=== PATIENT | male | born 1940 | race Caucasian/White ===

== ENCOUNTER → 2016-07-21 | Outpatient (RCR) | payer MEDICARE, BC ==
--- OUTSIDE RECORDS SUMMARY | 2016-04-22 10:48 | XMS REPORT | Continuity of Care Document ---
Author Author [facility] Organization [facility] Address Unknown Phone Unavailable Care Team Providers Care Button Sawyer Name Role Phone Edward Villar PCP [phone] Source Comments Some departments are not documenting in the electronic medical record. If you do not see the information that you expected, contact Release of Information in the Health Information Management department at [phone] for further assistance in locating additional records.[facility] Active Allergies and Adverse Reactions Allergen Noted Date Severity Reactions Comments Aspartame 11/05/2010 High NAUSEA AND VOMITING, I never want to SYNCOPE experience this again. Codeine 11/05/2010 Medium NAUSEA AND VOMITING, With the hallucinations HALLUCINATIONS it was weird! I have never experienced anything like that before. Other 01/12/2011 SEE COMMENTS Sweetner in diet products - convulsing, passes out Current Medications Prescription Sig. Disp. Refills Start End Date Status Date allopurinol (ZYLOPRIM) Take 100 mg by mouth Active 100 mg PO tablet daily. simvastatin (ZOCOR) 20 mg Take 20 mg by mouth at Active PO tablet bedtime daily. glipiZIDE (GLUCOTROL) 5 Take 5 mg by mouth every Active mg PO tablet morning. Fenofibric Acid Take 135 mg by mouth Active (TRILIPIX) 135 mg PO CpDR daily. cetirizine (ZYRTEC) 10 mg Take 10 mg by mouth daily Active PO tablet as needed. aspirin EC 81 mg tablet Take 1 Tab by mouth 90 Tab 3 09/02/19 Active daily. 12 metoprolol XL (TOPROL XL) Take 50 mg by mouth Active 50 mg tablet daily. INSULIN DETEMIR (LEVEMIR Inject 28 Units into Active SC) area(s) as directed at bedtime daily. bisacodyl (DULCOLAX) 5 mg Take 5 mg by mouth daily Active tablet as needed. INSULIN DETEMIR SC Inject 24 Units into Active area(s) as directed daily before breakfast. canagliflozin (INVOKANA) Take 100 mg by mouth Active 100 mg tablet daily with breakfast. amLODIPine (NORVASC) 5 mg TAKE ONE TABLET BY MOUTH 90 Tab 3 01/13/20 Active tablet EVERY DAY. NEED TO MAKE 14 FOLLOW UP APPOINTMENT ingenol mebutate (PICATO) Apply to affected area. Active 0.015 % gel Active Problems Problem Noted Date CLL (chronic lymphocytic leukemia) ([facility]) 05/30/2014 Overview: On Observation. Renal cell carcinoma ([facility]) 02/09/2011 Overview: --12/24/10: Left open radical nephrectomy. 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 Scan show widespread lymphadenopathy. Currently on observation alone. Observation, suspected cardiovascular disease 02/09/2011 Overview: 11/11/10: Carotid Duplex: Mild internal and common carotid plaquing bilaterally without hemodynamically significant stenosis Diabetes mellitus (HCC) 11/21/2010 CAD (coronary artery disease) 11/21/2010 Overview: 12/29/99 Echo ([place], [place]) - Small abnormality in the apex suspicious for mural thrombis. Mild mitral insufficiency. EF 45%. 01/03/00 Adenosine Cardiolite ([place], [place]) - Evidence of large apical infarction which involves the distal part of the inferior wall. EF 32%. 11/09/10: Lexicon stress thallium:Abnormal stress nuclear study. There is evidence of nearly equal mixed injury and ischemia of substantial extent involving the inferior septal apical segments and extending through the majority of the inferior wall. EF 49% 11/11/10: cardiac Cath: LM- Normal. LAD: 100 percent occluded in its mid segment. The mid and distal portions of the vessel fill via fpyb-sq-azfy collaterals. RAMUS: focal 95 percent stenosis proximally. LCX: Focal 70 percent stenosis in its proximal segment. RCA: 100 percent occluded proximally. The distal portions of the vessel fill via ltts-lb-yofvk collaterals primarily from the interventricular septal branches as well as the distal circumflex. 11/17/10: coronary artery bypass x 4 with PUGH to LAD, saphenous vein to PDA, saphenous vein sequential to ramus intermedius and OM under the direction of Dr. Pina. 12/22/10: Echo: EF 55%. No signficant valvular stenosis or regurgitation. CKD (chronic kidney disease) 11/21/2010 S/P CABG (coronary artery bypass graft) 11/21/2010 Ischemic cardiomyopathy 11/11/2010 CKD (chronic kidney disease) 11/11/2010 Type II diabetes mellitus (HCC) 11/05/2010 Hypertension 11/05/2010 Hyperlipidemia 11/05/2010 Gout 11/05/2010 Arthritis of knee 11/05/2010 History of [place] (myocardial infarction) 11/05/2010 Overview: 12/29/99 Echo ([place], [place]) - Small abnormality in the apex suspicious for mural thrombis. Mild mitral insufficiency. EF 45%. 01/03/00 Adenosine Cardiolite ([place], [place]) - Evidence of large apical infarction which involves the distal part of the inferior wall. EF 32%. Most Recent Encounters Date Type Specialty Providers Description 02/04/2016 Scan Only Urology Edel Armendariz MD Social History Tobacco Use Types Packs/Day Years Used Date Never Smoker Smokeless Tobacco: Never Used Alcohol Use Drinks/Week oz/Week Comments No quit 35 years ago Last Filed Vital Signs Vital Sign Reading Time Taken Blood Pressure 148/75 02/21/2015 1:32 PM CDT Pulse 74 02/21/2015 1:32 PM CDT Temperature 36.8 C (98.2 F) 02/21/2015 1:32 PM CDT Respiratory Rate - - Height 1.753 m (5' 9.02") 02/21/2015 1:32 PM CDT Weight 108.682 kg (239 lb 9.6 02/21/2015 1:32 PM CDT oz) Body Mass Index 35.37 02/21/2015 1:32 PM CDT Oxygen Saturation 96% 02/21/2015 1:32 PM CDT Plan of Care Health Maintenance Due Date Last Done Comments Physical (Comprehensive) 1947 Exam Pertussis Vaccine 1951 Tetanus Vaccine 1957 Dilated Eye Exam 1958 Foot Exam 1958 Colorectal Cancer 1990 Screening Shingles Vaccine 2000 Prevnar/Pneumovax (#1) 2005 Hba1c 02/20/2012 08/22/2011, 11/11/2010, 06/18/2010 Microalbumin 09/27/2012 09/28/2011, 05/25/2011 Influenza Vaccine 03/11/2016 Results from Last 3 Months Not on file
[2016-04-22 11:13] LABS: MEAN CORPUSCULAR HEMOGLOBIN 30 PG (25-34); MEAN CORPUSCULAR HGB CONC 34 G/DL (32-36); MEAN CORPUSCULAR VOLUME 90 FL (80-99); MEAN PLATELET VOLUME 11.2 FL (7.4-10.4); PLATELET COUNT 92 10^3/uL (130-400); RED BLOOD COUNT 4.47 10^6/uL (4.35-5.85); RED CELL DISTRIBUTION WIDTH 15.3 % (10.0-14.5)
[2016-04-22 11:25] LABS: WHITE BLOOD COUNT 36.7 10^3/uL (4.3-11.0)
[2016-04-22 11:42] LABS: BILIRUBIN,TOTAL 0.3 MG/DL (0.1-1.0); CALCIUM 8.6 MG/DL (8.5-10.1); CREATININE SERUM 1.98 MG/DL (0.60-1.30); MAGNESIUM 2.2 MG/DL (1.8-2.4); POTASSIUM 5.4 MMOL/L (3.6-5.0); TOTAL PROTEIN 6.2 G/DL (6.4-8.2)
[~2016-07-21] MED LIST: ALLP100T PO; CETI10CA PO; DOCU-165 PO; FENO135C PO; GLIP5TAB26 PO; HYDR12.570 PO; IRB150T PO; LEVO250T7 PO; LIRA0.6P SQ; METF500T8 PO; METO200T6 PO; SMV20T PO
[2016-07-21 10:32] LABS: BASOPHILS # (AUTO) 0.1 10^3/uL (0.0-0.1); BASOPHILS % (AUTO) 0 % (0-10); EOSINOPHILS # (AUTO) 0.4 10^3/uL (0.0-0.3); EOSINOPHILS % (AUTO) 1 % (0-10); LYMPHOCYTES # (AUTO) 35.4 X 10^3 (1.0-4.0); LYMPHOCYTES % (AUTO) 88 % (12-44); MEAN CORPUSCULAR HEMOGLOBIN 30 PG (25-34); MEAN CORPUSCULAR HGB CONC 33 G/DL (32-36); MEAN CORPUSCULAR VOLUME 91 FL (80-99); MEAN PLATELET VOLUME 10.8 FL (7.4-10.4); MONOCYTES # (AUTO) 1.6 X 10^3 (0.0-1.0); MONOCYTES % (AUTO) 4 % (0-12); NEUTROPHILS # (AUTO) 2.9 X 10^3 (1.8-7.8); NEUTROPHILS % (AUTO) 7 % (42-75); PLATELET COUNT 102 10^3/uL (130-400); RED CELL DISTRIBUTION WIDTH 14.5 % (10.0-14.5); WHITE BLOOD COUNT 40.4 10^3/uL (4.3-11.0)
[2016-07-21 11:00] LABS: ALBUMIN 3.9 G/DL (3.2-4.5); BILIRUBIN,TOTAL 0.3 MG/DL (0.1-1.0); CREATININE SERUM 2.4 MG/DL (0.60-1.30); POTASSIUM 6.1 MMOL/L (3.6-5.0); TOTAL PROTEIN 6.4 G/DL (6.4-8.2)
== END | disposition home or self-care (01) ==
LOC: ONC 04-22 10:45
PROVIDERS: ATTEND Internal Medicine Hematology & Oncology
DX: C85.10 Unspecified B-cell lymphoma, unspecified site (principal); Z85.528 Personal history of other malignant neoplasm of kidney; N18.3 Chronic kidney disease, stage 3 (moderate); D69.6 Thrombocytopenia, unspecified; Z79.899 Other long term (current) drug therapy
CPT/HCPCS: 36415; 80053; 83615; 83735; 85025; 99213

== ENCOUNTER 2016-07-27 14:15 | Outpatient (RCR) | payer MEDICARE, BC ==
--- OUTSIDE RECORDS SUMMARY | 2016-07-27 14:18 | XMS REPORT | Continuity of Care Document ---
Author Author [facility] Organization [facility] Address Unknown Phone Unavailable Care Team Providers Care Internet Project Manager Name Role Phone Edward Villar PCP [phone] Source Comments Some departments are not documenting in the electronic medical record. If you do not see the information that you expected, contact Release of Information in the Health Information Management department at [phone] for further assistance in locating additional records.[facility] Active Allergies and Adverse Reactions Allergen Noted [...] Problem Noted Date CLL (chronic lymphocytic leukemia) ([facility]) 05/30/2014 Overview: On Observation. Renal cell carcinoma ([facility]) 02/09/2011 Overview: --12/24/10: Left open [...] (coronary artery disease) 11/21/2010 Overview: 12/29/99 Echo ([place], [place]) - Small abnormality in the apex suspicious for mural thrombis. Mild mitral insufficiency. EF 45%. 01/03/00 Adenosine Cardiolite ([place], [place]) - Evidence of large apical infarction [...] distal portions of the vessel fill via dwid-ne-kuou collaterals. RAMUS: focal 95 percent stenosis proximally. LCX: Focal 70 percent stenosis in its proximal segment. RCA: 100 percent occluded proximally. The distal portions of the vessel fill via nfbq-uy-gfovo collaterals primarily from the interventricular septal branches [...] 11/05/2010 Arthritis of knee 11/05/2010 History of [place] (myocardial infarction) 11/05/2010 Overview: 12/29/99 Echo ([place], [place]) - Small abnormality in the apex suspicious for mural thrombis. Mild mitral insufficiency. EF 45%. 01/03/00 Adenosine Cardiolite ([place], [place]) - Evidence of large apical infarction which involves the distal part of the inferior wall. EF 32%. Most Recent Encounters Date Type Specialty Providers Description 05/03/2016 Scan Only Urology Edel Armendariz MD Social [...] Dilated Eye Exam 1958 Foot Exam 1958 Shingles Vaccine 2000 Prevnar/Pneumovax (#1) 2005 Hba1c 02/20/2012 08/22/2011, 11/11/2010, 06/18/2010 Microalbumin 09/27/2012 09/28/2011, 05/25/2011 Influenza Vaccine 03/11/2016 Results from Last 3 Months Not on file
[2016-07-27 16:46] LABS: CALCIUM 8.9 MG/DL (8.5-10.1); CREATININE SERUM 2.07 MG/DL (0.60-1.30); POTASSIUM 5.2 MMOL/L (3.6-5.0)
== END 2016-10-25 | disposition home or self-care (01) ==
LOC: ONC 14:15
PROVIDERS: ATTEND Internal Medicine Hematology & Oncology
DX: C85.10 Unspecified B-cell lymphoma, unspecified site (principal); Z85.528 Personal history of other malignant neoplasm of kidney; N18.3 Chronic kidney disease, stage 3 (moderate); D69.6 Thrombocytopenia, unspecified; Z79.899 Other long term (current) drug therapy
CPT/HCPCS: 36415; 80048; 99213

== ENCOUNTER 2016-11-10 08:10 | Outpatient (RCR) | payer MEDICARE, BC ==
[2016-11-10 08:31] LABS: BASOPHILS # (AUTO) 0.1 10^3/uL (0.0-0.1); BASOPHILS % (AUTO) 0 % (0-10); EOSINOPHILS # (AUTO) 0.5 10^3/uL (0.0-0.3); EOSINOPHILS % (AUTO) 1 % (0-10); LYMPHOCYTES # (AUTO) 57.8 X 10^3 (1.0-4.0); LYMPHOCYTES % (AUTO) 88 % (12-44); MEAN CORPUSCULAR HEMOGLOBIN 29 PG (25-34); MEAN CORPUSCULAR HGB CONC 32 G/DL (32-36); MEAN CORPUSCULAR VOLUME 91 FL (80-99); MEAN PLATELET VOLUME 10.7 FL (7.4-10.4); MONOCYTES % (AUTO) 3 % (0-12); NEUTROPHILS # (AUTO) 5.2 X 10^3 (1.8-7.8); NEUTROPHILS % (AUTO) 8 % (42-75); PLATELET COUNT 120 10^3/uL (130-400); RED BLOOD COUNT 3.92 10^6/uL (4.35-5.85); RED CELL DISTRIBUTION WIDTH 14.7 % (10.0-14.5)
[2016-11-10 08:33] LABS: WHITE BLOOD COUNT 65.6 10^3/uL (4.3-11.0)
[2016-11-10 09:01] LABS: ALBUMIN 3.7 G/DL (3.2-4.5); BILIRUBIN,TOTAL 0.6 MG/DL (0.1-1.0); CALCIUM 8.7 MG/DL (8.5-10.1); CREATININE SERUM 2.14 MG/DL (0.60-1.30); POTASSIUM 5.1 MMOL/L (3.6-5.0)
== END 2017-02-08 | disposition home or self-care (01) ==
LOC: ONC 08:10
PROVIDERS: ATTEND Internal Medicine Hematology & Oncology
DX: C85.10 Unspecified B-cell lymphoma, unspecified site (principal); Z85.528 Personal history of other malignant neoplasm of kidney; Z85.828 Personal history of other malignant neoplasm of skin; R19.7 Diarrhea, unspecified; E11.22 Type 2 diabetes mellitus with diabetic chronic kidney disease; I12.9 Hypertensive chronic kidney disease with stage 1 through stage 4 chronic kidney disease, or unspecified chronic kidney disease; N18.3 Chronic kidney disease, stage 3 (moderate); D69.6 Thrombocytopenia, unspecified; I25.10 Atherosclerotic heart disease of native coronary artery without angina pectoris; D80.1 Nonfamilial hypogammaglobulinemia; E78.00 Pure hypercholesterolemia, unspecified; M10.9 Gout, unspecified; Z95.1 Presence of aortocoronary bypass graft; Z79.4 Long term (current) use of insulin; Z79.899 Other long term (current) drug therapy
CPT/HCPCS: 80053; 83615; 85025; 87324; 87449; 99213

== ENCOUNTER → 2016-11-10 | Outpatient (CLI) | payer MEDICARE, BC | LOC: LAB 08:14 | PROVIDERS: ATTEND Family Medicine | DX: E11.9 Type 2 diabetes mellitus without complications (principal); Z79.4 Long term (current) use of insulin | CPT/HCPCS: 36415; 83036 ==

== ENCOUNTER → 2016-11-16 | Outpatient (CLI) | payer MEDICARE, BC ==
--- NOTE | 2016-11-16 10:13 | Diagnostic Imaging Report ---
CT NECK/CHEST/ABD/PELVIS WO Technique: Unenhanced CT imaging of the neck, chest, abdomen and pelvis was performed. Coronal reformats were created and submitted for interpretation. Indication: Chronic lymphocytic leukemia (CLL). Comparison: CT neck, chest, abdomen, and pelvis of 10/16/2015. CT NECK FINDINGS: Numerous bilateral cervical lymph nodes involving all the cervical stations (Level 1, 2, 3, 4 and 5) persist and are stable to slightly decreased in size. Intraparotid lymph nodes also persist but a few have decreased in size. A few examples of lymph nodes that have decreased in size include a left-sided level IB submandibular lymph node measuring 1.0 x 1.4 cm (previously 1.4 x 2.1 cm), right-sided level VA lymph node conglomeration now measuring 2.1 x 1.4 cm (previously 2.9 x 1.7 cm) and a right level IIB lymph node now measuring 0.7 x 0.7 cm (previously 1.2 x 1.1 cm), and a left level IIB lymph node measuring 1.1 x 0.8 cm (previously 1.4 x 2.5 cm). There are no enlarging cervical lymph nodes. Airway remains patent. No evidence of mucosal-based mass lesion in the nasopharynx, oropharynx or hypopharynx. The true vocal cords are symmetric. Salivary glands are symmetric with the exception of intraparotid lymph nodes. Thyroid is normal. No concerning focal osseous lesion in the cervical spine. Multilevel cervical spondylosis is similar. IMPRESSION: 1. Disease response in the neck characterized by improving but persistent extensive bilateral cervical lymphadenopathy. However, please see below for mixed response in the chest. CT CHEST FINDINGS: Left supraclavicular lymph node has slightly decreased in size now measuring 1.6 x 1.4 cm (previously 1.8 x 1.3 cm). Multiple bilateral enlarged axillary lymph nodes persist, but the largest have decreased in size. For example, the largest left axillary lymph node now measures 1.8 x 1.3 cm (previously 1.5 x 2.3 cm and the largest right axillary lymph node now measures 2.0 x 1.4 cm (previously 2.6 x 1.7 cm). Multiple enlarged intrathoracic lymph nodes are stable to slightly decreased in size. Examples include an upper right paratracheal lymph node now with maximal short axis dimension of 1.7 cm (previously 2.0 cm). Lower right pretracheal lymph node now has maximal short axis dimension of 1.7 cm (previously 2.1 cm). Extensive confluent lymphadenopathy around the right mainstem pulmonary bronchus is not significantly changed. Confluent subcarinal lymphadenopathy is unchanged with maximal dimensions of 5.3 x 2.4 cm (previously 5.3 x 2.4 cm when measured similarly). There are enlarged bilateral juxtaphrenic lymph nodes which are similar. No new or enlarging intrathoracic lymph nodes. Heart remains mildly enlarged with coronary artery calcifications and changes of CABG. No pericardial effusion. Normal caliber thoracic aorta with moderate atherosclerotic calcifications. There has been development of a small right pleural effusion. Multifocal bilateral pulmonary nodules have increased in size with a few examples as follows: Posterior right upper lobe 8mm nodule (previously 6 mm), left upper lobe 7 mm nodule (previously 5 mm), 11 mm right lower lobe pulmonary nodule (previously 7 mm and 11 mm left lower lobe pulmonary nodule (previously 9 mm). Numerous additional pulmonary nodules have increased in size. There are likely additional tiny new pulmonary nodules on both sides. No focal osseous lesion in the thorax. IMPRESSION: 1. Mixed response within the chest. Bilateral axillary and mediastinal lymph nodes have mildly decreased in size. However, multiple bilateral pulmonary nodules have increased in size. 2. Development of small right pleural effusion, which could be malignant or hydrostatic in nature from lymphatic obstruction. CT ABDOMEN AND PELVIS FINDINGS: No focal hepatic lesion. Unchanged marked splenomegaly with the spleen measuring up to 21 cm. Numerous enlarged upper abdominal and retroperitoneal lymph nodes are stable to decreased in size. For example the dominant abby hepatis lymph node measures 4.5 x 3.1 cm (previously 5.0 x 3.9 cm), left periaortic lymph node measures 3.4 x 3.0 cm (previously 3.4 x 3.5 cm) and a right retrocaval lymph node at the same level measures 2.5 x 1.8 cm (previously 2.6 x 1.6 cm). Enlarged left mesenteric root lymph nodes are stable with dominant node measuring 1.8 x 1.8 cm (previously 1.8 x 1.7 cm). There is increased hazy soft tissue attenuation within the mesenteric root, which likely relates to combination of posttreatment change as well as lymphadenopathy. The pancreas is grossly normal. Stable nodular thickening of the right adrenal gland. Status post left nephrectomy and possible removal of the left adrenal gland, which is not well visualized. No obstructive uropathy on the right. Atherosclerotic aorta. Urinary bladder is distended with mild circumferential wall thickening, which is nonspecific. No bowel obstruction. There is mild circumferential wall thickening of the rectosigmoid colon with mild surrounding inflammatory changes. Cholelithiasis is again noted. No abscess formation or evidence of bowel perforation. Mildly enlarged bilateral inguinal lymph nodes have not significantly changed. No concerning focal osseous lesion in the abdomen or pelvis. IMPRESSION: 1. Minimal disease response in the abdomen and pelvis with slight decrease in size but persistent bulky retroperitoneal and mesenteric root lymphadenopathy. 2. Mild circumferential wall thickening of the rectosigmoid colon with mild surrounding inflammatory changes. Findings could relate to colitis in the appropriate clinical setting. Correlation for symptomatology of colitis is advised. If the patient does not have clinical signs or symptoms of colitis, the apparent surrounding inflammatory changes may relate to post treatment changes in the mesenteric root resulting in soft tissue stranding. Dictated by: Dictated on workstation # [id number]
== END ==
LOC: RAD 08:25
PROVIDERS: ATTEND Internal Medicine Hematology & Oncology
DX: C91.10 Chronic lymphocytic leukemia of B-cell type not having achieved remission (principal)
CPT/HCPCS: 70490; 71250; 74176

== ENCOUNTER 2017-02-20 10:19 | Emergency (ER) | payer MEDICARE, BC ==
[~2017-02-20] VITALS: Ht 175.3 cm; Wt 113.9 kg
--- OUTSIDE RECORDS SUMMARY | 2017-02-20 10:25 | XMS REPORT | Clinical Summary ---
Author Author [facility] Organization [facility] Address Unknown Phone Unavailable Care Team Providers Care Crimp Setter Name Role Phone PCP Unavailable Source Comments Some departments are not documenting in the electronic medical record. If you do not see the information that you expected, contact Release of Information in the Health Information Management department at [phone] for further assistance in locating additional records.[facility] Allergies Active Allergy Reactions Severity Noted Date Comments Aspartame NAUSEA AND VOMITING, High 11/05/2010 I never want to SYNCOPE experience this again. Codeine NAUSEA AND VOMITING, Medium 11/05/2010 With the hallucinations HALLUCINATIONS it was weird! I have never experienced anything like that before. Unclassified Drug SEE COMMENTS 01/12/2011 Sweetner in diet products - convulsing, passes [...] Problem Noted Date CLL (chronic lymphocytic leukemia) ([facility]) 05/30/2014 Overview: On Observation. Renal cell carcinoma (HCC) 02/09/2011 Overview: --12/24/10: Left open radical nephrectomy. [...] (coronary artery disease) 11/21/2010 Overview: 12/29/99 Echo ([place], [place]) - Small abnormality in the apex suspicious for mural thrombis. Mild mitral insufficiency. EF 45%. 01/03/00 Adenosine Cardiolite ([place], [place]) - Evidence of large apical infarction [...] distal portions of the vessel fill via fdvf-ff-gzgz collaterals. RAMUS: focal 95 percent stenosis proximally. LCX: Focal 70 percent stenosis in its proximal segment. RCA: 100 percent occluded proximally. The distal portions of the vessel fill via uuyl-pi-ubqtc collaterals primarily from the interventricular septal branches [...] 11/05/2010 Arthritis of knee 11/05/2010 History of [place] (myocardial infarction) 11/05/2010 Overview: 12/29/99 Echo ([place], [place]) - Small abnormality in the apex suspicious for mural thrombis. Mild mitral insufficiency. EF 45%. 01/03/00 Adenosine Cardiolite ([place], [place]) - Evidence of large apical infarction which involves the distal part of the inferior wall. EF 32%. Family History Medical History Relation Name Comments Cancer Brother Cancer Brother Heart Attack Father Coronary Artery Disease Maternal Grandfather Diabetes Mother Hypertension Mother Stroke Mother Cancer Sister kidney Relation Name Status Comments Brother Brother Father [place] (Age 65) Maternal Grandfather Mother Sister Alive Social History Tobacco Use Types Packs/Day Years Used Date Never Smoker Smokeless Tobacco: Never Used Alcohol Use Drinks/Week oz/Week Comments No quit 35 years ago Sex Assigned at Date Recorded Not on file Last Filed Vital Signs Vital Sign Reading Time Taken Blood Pressure 148/75 02/21/2015 1:32 PM CDT Pulse 74 02/21/2015 1:32 PM CDT Temperature 36.8 C (98.2 F) 02/21/2015 1:32 PM CDT Respiratory Rate - - Oxygen Saturation 96% 02/21/2015 1:32 PM CDT Inhaled Oxygen - - Concentration Weight 108.7 kg (239 lb 9.6 oz) 02/21/2015 1:32 PM CDT Height 175.3 cm (5' 9.02") 02/21/2015 1:32 PM CDT Body Mass Index 35.37 02/21/2015 1:32 PM CDT Plan of Treatment Health Maintenance Due Date Last Done Comments PHYSICAL (COMPREHENSIVE) 1947 EXAM PERTUSSIS VACCINE 1951 TETANUS VACCINE 1957 DILATED EYE EXAM 1958 FOOT EXAM 1958 SHINGLES VACCINE 2000 PREVNAR/PNEUMOVAX (#1) 2005 HBA1C 02/20/2012 08/22/2011, 11/11/2010, 06/18/2010 MICROALBUMIN 09/27/2012 09/28/2011, 05/25/2011 INFLUENZA VACCINE 03/11/2017 Results Not on filefrom Last 3 Months
--- NOTE | 2017-02-20 11:43 | ED General ---
General Chief Complaint: Lower Extremity Stated Complaint: BILAT LEG/ABD WATER RETENTION Nursing Triage Note: PT HERE WITH C/O BILAT LEG SWELLING, ABDOMINAL SWELLING, AND SOB FOR 1 DAY. Nursing Sepsis Screen: No Definite Risk Source of Information: Patient Exam Limitations: No Limitations History of Present Illness Time Seen by Provider: 11:43 Initial Comments 76 male patient presents to the emergency department complains of bilateral lower extremity swelling, abdominal swelling, including increase shortness of air for 1 day. States he always has some swelling, but worse over the last 3-4 wks. Patient denies chest pain. Denies being on a diuretic. states patient's amlodipine was increased from 5 mg to 10 mg approximately one month ago when symptoms began to increase. Timing/Duration: Other (3-4 wks) Modifying Factors: worse with Other (denies improvement with elevation.) Allergies and Home Medications Allergies Coded Allergies: aspartame (Unverified Allergy, Severe, 10/23/10) Codeine (Unverified Allergy, Intermediate, HIGH ANXIETY, NAUSEA, 10/22/10) Home Medications Allopurinol 100 Mg Tab, 100 MG PO DAILY, (Reported) Docusate Sodium 100 Mg Capsule, 100 MG PO DAILY, #2 (Reported) 2 caps daily in am for constipation Fenofibric Acid (Choline) 135 Mg Capsule.dr, 135 MG PO DAILY, (Reported) Furosemide 40 Mg Tablet, 40 MG PO BID, #6 Ref 0 Prescribed by: WINSOME SWANSON on 02/20/17 1414 Glipizide 5 Mg Tab.er.24, 5 MG PO HS, (Reported) Hydrochlorothiazide 12.5 Mg Cap, 12.5 MG PO DAILY, (Reported) Irbesartan 150 Mg Tab, 150 MG PO DAILY, (Reported) Levofloxacin 250 Mg Tab, 1 EACH PO DAILY for 7 Days, (Reported) Liraglutide 0.6 Mg/0.1 Ml Pen.injctr, 1.8 MG SQ DAILY, (Reported) Metformin Hcl 500 Mg Tab.sr.24h, 1 EACH PO BID WITH MEALS, (Reported) Metoprolol Succinate 200 Mg Tab.sr.24h, 1 EACH PO DAILY, (Reported) Simvastatin 20 Mg Tab, 20 MG PO HS, (Reported) Constitutional: No chills, No diaphoresis, No dizziness, No fever, No malaise Respiratory: No cough, dyspnea on exertion, No hemoptysis, No orthopnea, No phlegm, short of breath Cardiovascular: see HPI, No chest pain, edema, No palpitations, No syncope Gastrointestinal: see HPI, No abdominal pain, No constipation, No diarrhea, No nausea, No vomiting Genitourinary: no symptoms reported Musculoskeletal: no symptoms reported Skin: no symptoms reported Psychiatric/Neurological: No Symptoms Reported All Other Systems Reviewed Negative Unless Noted: Yes (Negative excepted noted.) Past Icebgby-Lnofsa-Mtruvg Hx Patient Social History Recent Foreign Travel: No Contact w/Someone Who Travel: No Recent Infectious Disease Expo: No Recent Hopitalizations: Yes ([place], hosp here 11 yrs ago) Surgeries HX Surgeries: Yes Respiratory Hx Respiratory Disorders: No Cardiovascular Hx Cardiac Disorders: Yes Neurological Hx Neurological Disorders: No Reproductive System Hx Reproductive Disorders: No Genitourinary Hx Genitourinary Disorders: Yes Genitourinary Disorders: Renal Failure Gastrointestinal Hx Gastrointestinal Disorders: Yes (pt recent left kidney mass dx) Musculoskeletal Hx Musculoskeletal Disorders: No Endocrine Hx Endocrine Disorders: Yes HEENT HX ENT Disorders: No Psychosocial Hx Psychiatric Problems: No Blood Transfusions Hx Blood Disorders: No Reviewed Nursing Assessment Reviewed/Agree w Nursing PMH: Yes Family Medical History Significant Family History: No Pertinent Family Hx Physical Exam Vital Signs Vital Sign - Last 12Hours 02/20/17 02/20/17 10:52 14:27 Temp 97.6 Pulse 77 Resp 18 B/P (MAP) 126/76 Pulse Ox 98 O2 Delivery Room Air Capillary Refill : Less Than 3 Seconds General Appearance: No Apparent Distress, WD/WN, Chronically ill HEENT: PERRL/EOMI, Pharynx Normal Neck: Normal Inspection, Supple Respiratory: No Accessory Muscle Use, No Respiratory Distress, Decreased Breath Sounds (decreased breath sounds bilateral bases), No Pleural Rub, No Rales, No Rhonci, No Wheezing Cardiovascular: Regular Rate, Rhythm, No Murmur Gastrointestinal: Normal Bowel Sounds, Non Tender, Distended, No Guarding Back: Normal Inspection Extremity: Normal Capillary Refill, No Calf Tenderness, Pedal Edema (4+ edema bilaterally) Neurologic/Psychiatric: Alert, Oriented x3, Normal Mood/Affect Skin: Normal Color, Warm/Dry Progress/Results/Core Measures Results/Orders Lab Results My Orders Orders - WINSOME SWANSON [employer] (02/20/17 ) Medications Given in ED Vital Signs/I&O Blood Pressure Mean: 93 ECG Initial ECG Impression Date: Feb 20, 2017 Initial ECG Impression Time: 11:32 Initial ECG Rate: 71 Initial ECG Rhythm: Normal Sinus Initial ECG Comparisson: Unchanged Comment Sinus rhythm. ECG reviewed by Jorge Luis Pena MD. Diagnostic Imaging Diagonstic Imaging: Xray Plain Films/CT/US/NM/MRI: chest Comments Heart is enlarged. There's mild pulmonary vascular congestion. Bibasal atelectasis versus infiltrates are noted. There may be very small right effusion. There is no pneumothorax. Vague nodular densities are seen one in the right lung apex with a second seen overlying the left second anterior rib. IMPRESSION: 1. Bibasal atelectasis versus infiltrates with possible small right effusion. 2. Pulmonary vasculature congestion. 3. Nodular densities noted within both lungs. Correlation made to CT chest 11/16/2016 does demonstrate diffuse bilateral nodules not all of which are seen on this examination. Dictated by: Dictated on workstation # [id number] Reviewed: Reviewed by Me (radiology report reviewed by me) Departure Communication Progress Notes All laboratory and diagnostic findings discussed with patient. Patient has urinated 3-4 times since being given the Lasix. Patient reports already feeling better with Lasix. Plan for discharge to home with follow-up as an outpatient with Dr. Keys this week as previously scheduled as well Dr. Villar. Patient to call tomorrow morning for appointment time. Patient case discussed with Dr. Pena, he agrees with the plan of care. Impression Impression: Primary Impression: Adverse effects of medication Qualified Codes: T88.7XXA - Unspecified adverse effect of drug or medicament, initial encounter Additional Impressions: Edema, pitting Chronic kidney disease (CKD) Qualified Codes: N18.9 - Chronic kidney disease, unspecified History of leukemia Disposition: HOME, SELF-CARE Condition: Improved Departure-Patient Inst. Decision time for Depature: 14:13 Referrals: MILAN KEYS FLOYD R MD (PCP/Family) Primary Care Physician Patient Instructions: Chronic Kidney Disease (DC), Dependent Edema (DC) Add. Discharge Instructions: All discharge instructions reviewed with patient and/or family. Voiced understanding. Medications as instructed. Continue usual home medications with the exception of decrease amlodipine to 5 mg by mouth daily. Repeat labs on . Follow-up with Dr. Marroquin as previously scheduled for . Call Dr. Villar's office tomorrow morning for appointment time this week for recheck. Follow-up with Dr. Adair as previously scheduled. Return for worsened symptoms, shortness of air, swelling, chest pain, or any other concerns. Scripts Furosemide (Lasix) 40 Mg Tablet 40 MG PO BID, #6 TAB 0 Refills Prov: WINSOME SWANSON 02/20/17 WINSOME SWANSON Feb 20, 2017 11:43
[2017-02-20 11:58] LABS: BASOPHILS # (AUTO) 0.1 10^3/uL (0.0-0.1); BASOPHILS % (AUTO) 0 % (0-10); EOSINOPHILS # (AUTO) 0.4 10^3/uL (0.0-0.3); EOSINOPHILS % (AUTO) 1 % (0-10); LYMPHOCYTES # (AUTO) 41.4 X 10^3 (1.0-4.0); LYMPHOCYTES % (AUTO) 87 % (12-44); MEAN CORPUSCULAR HEMOGLOBIN 29 PG (25-34); MEAN CORPUSCULAR HGB CONC 32 G/DL (32-36); MEAN CORPUSCULAR VOLUME 91 FL (80-99); MONOCYTES # (AUTO) 1.9 X 10^3 (0.0-1.0); MONOCYTES % (AUTO) 4 % (0-12); NEUTROPHILS # (AUTO) 3.5 X 10^3 (1.8-7.8); NEUTROPHILS % (AUTO) 8 % (42-75); PLATELET COUNT 84 10^3/uL (130-400); RED BLOOD COUNT 3.99 10^6/uL (4.35-5.85); RED CELL DISTRIBUTION WIDTH 15.5 % (10.0-14.5)
[2017-02-20 12:00] LABS: WHITE BLOOD COUNT 47.4 10^3/uL (4.3-11.0)
--- NOTE | 2017-02-20 12:10 | Diagnostic Imaging Report ---
INDICATION: Complaining of bilateral leg swelling. Abdominal pain, shortness of breath. EXAMINATION: Chest 02/20/2017 COMPARISON: 10/31/2010 FINDINGS: Heart is enlarged. There's mild pulmonary vascular congestion. Bibasal atelectasis versus infiltrates are noted. There may be very small right effusion. There is no pneumothorax. Vague nodular densities are seen one in the right lung apex with a second seen overlying the left second anterior rib. IMPRESSION: 1. Bibasal atelectasis versus infiltrates with possible small right effusion. 2. Pulmonary vasculature congestion. 3. Nodular densities noted within both lungs. Correlation made to CT chest 11/16/2016 does demonstrate diffuse bilateral nodules not all of which are seen on this examination. Dictated by: Dictated on workstation # [id number]
[2017-02-20] MEDS ORDERED: DEXTROSE 50% 50 ML (IMS) SYR IV ONE (12:15)
[2017-02-20 12:19] LABS: ALBUMIN 3.8 GM/DL (3.2-4.5); BILIRUBIN,TOTAL 0.6 MG/DL (0.1-1.0); CALCIUM 8.8 MG/DL (8.5-10.1); CREATININE SERUM 1.7 MG/DL (0.60-1.30); POTASSIUM 4.8 MMOL/L (3.6-5.0); TOTAL PROTEIN 6.4 GM/DL (6.4-8.2)
[2017-02-20] MEDS ORDERED: FUROSEMIDE 40 MG/4 ML INJ (LASIX) IVP ONE (12:45)
[2017-02-20] MEDS ORDERED: FURO-124 PO (14:14)
[2017-02-20 14:27] VITALS: BP 147/70
== END 2017-02-20 14:27 | disposition home or self-care (01) ==
LOC: EDUNIT# 10:19 → ER 10:21
DX: T50.905A Adverse effect of unspecified drugs, medicaments and biological substances, initial encounter (principal); I25.2 Old myocardial infarction; R60.0 Localized edema; N18.9 Chronic kidney disease, unspecified; Z79.84 Long term (current) use of oral hypoglycemic drugs; Z85.6 Personal history of leukemia
CPT/HCPCS: 36415; 71010; 80053; 82962; 83880; 85025; 85027; 85379; 93005; 96374; 96375

== ENCOUNTER 2017-02-24 09:33 | Outpatient (RCR) | payer MEDICARE, BC ==
[~2017-02-24 09:33] MED LIST changes: +FURO-124 PO
[2017-02-24 09:46] LABS: BASOPHILS # (AUTO) 0.1 10^3/uL (0.0-0.1); BASOPHILS % (AUTO) 0 % (0-10); EOSINOPHILS # (AUTO) 0.3 10^3/uL (0.0-0.3); EOSINOPHILS % (AUTO) 1 % (0-10); LYMPHOCYTES # (AUTO) 31.5 X 10^3 (1.0-4.0); LYMPHOCYTES % (AUTO) 86 % (12-44); MEAN CORPUSCULAR HEMOGLOBIN 29 PG (25-34); MEAN CORPUSCULAR HGB CONC 32 G/DL (32-36); MEAN CORPUSCULAR VOLUME 92 FL (80-99); MEAN PLATELET VOLUME 10.8 FL (7.4-10.4); MONOCYTES # (AUTO) 1.7 X 10^3 (0.0-1.0); MONOCYTES % (AUTO) 5 % (0-12); NEUTROPHILS # (AUTO) 2.9 X 10^3 (1.8-7.8); NEUTROPHILS % (AUTO) 8 % (42-75); PLATELET COUNT 92 10^3/uL (130-400); RED BLOOD COUNT 3.73 10^6/uL (4.35-5.85); RED CELL DISTRIBUTION WIDTH 15.9 % (10.0-14.5)
[2017-02-24 09:48] LABS: WHITE BLOOD COUNT 36.5 10^3/uL (4.3-11.0)
[2017-02-24 10:15] LABS: ALBUMIN 3.6 GM/DL (3.2-4.5); BILIRUBIN,TOTAL 0.6 MG/DL (0.1-1.0); CALCIUM 8.6 MG/DL (8.5-10.1); CREATININE SERUM 2.02 MG/DL (0.60-1.30); POTASSIUM 5.7 MMOL/L (3.6-5.0); TOTAL PROTEIN 5.9 GM/DL (6.4-8.2)
== END 2017-04-09 | disposition home or self-care (01) ==
LOC: ONC 09:33
PROVIDERS: ATTEND Internal Medicine Hematology & Oncology
DX: C85.10 Unspecified B-cell lymphoma, unspecified site (principal); Z85.528 Personal history of other malignant neoplasm of kidney; N18.3 Chronic kidney disease, stage 3 (moderate); D69.6 Thrombocytopenia, unspecified; Z79.899 Other long term (current) drug therapy
CPT/HCPCS: 36415; 80053; 83615; 85025; 99213

== ENCOUNTER 2017-07-12 10:37 | Outpatient (RCR) | payer MEDICARE, BC ==
[2017-06-10 09:32] LABS: BASOPHILS # (AUTO) 0.1 10^3/uL (0.0-0.1); BASOPHILS % (AUTO) 0 % (0-10); EOSINOPHILS # (AUTO) 0.2 10^3/uL (0.0-0.3); EOSINOPHILS % (AUTO) 0 % (0-10); HEMATOCRIT 38 % (40-54); HEMOGLOBIN 12.5 G/DL (13.3-17.7); LYMPHOCYTES # (AUTO) 65.6 X 10^3 (1.0-4.0); LYMPHOCYTES % (AUTO) 92 % (12-44); MEAN CORPUSCULAR HEMOGLOBIN 28 PG (25-34); MEAN CORPUSCULAR HGB CONC 33 G/DL (32-36); MEAN CORPUSCULAR VOLUME 85 FL (80-99); MEAN PLATELET VOLUME 10.4 FL (7.4-10.4); MONOCYTES # (AUTO) 1.3 X 10^3 (0.0-1.0); MONOCYTES % (AUTO) 2 % (0-12); NEUTROPHILS # (AUTO) 4.1 X 10^3 (1.8-7.8); NEUTROPHILS % (AUTO) 6 % (42-75); PLATELET COUNT 81 10^3/uL (130-400); RED BLOOD COUNT 4.47 10^6/uL (4.35-5.85); RED CELL DISTRIBUTION WIDTH 14.9 % (10.0-14.5)
[2017-06-10 09:35] LABS: WHITE BLOOD COUNT 71.3 10^3/uL (4.3-11.0)
[2017-06-10 09:54] LABS: ALBUMIN 3.3 GM/DL (3.2-4.5); BILIRUBIN,TOTAL 0.4 MG/DL (0.1-1.0); CALCIUM 8.5 MG/DL (8.5-10.1); CREATININE SERUM 1.64 MG/DL (0.60-1.30); POTASSIUM 5.4 MMOL/L (3.6-5.0)
[2017-07-12 10:55] LABS: HEMATOCRIT 40 % (40-54); HEMOGLOBIN 12.9 G/DL (13.3-17.7); MEAN CORPUSCULAR HEMOGLOBIN 28 PG (25-34); MEAN CORPUSCULAR HGB CONC 33 G/DL (32-36); MEAN CORPUSCULAR VOLUME 85 FL (80-99); MEAN PLATELET VOLUME 11.8 FL (7.4-10.4); PLATELET COUNT 101 10^3/uL (130-400); RED BLOOD COUNT 4.67 10^6/uL (4.35-5.85); RED CELL DISTRIBUTION WIDTH 15.6 % (10.0-14.5)
[2017-07-12 11:07] LABS: WHITE BLOOD COUNT 30.8 10^3/uL (4.3-11.0)
[2017-07-12 11:13] LABS: ALBUMIN 3.6 GM/DL (3.2-4.5); BILIRUBIN,TOTAL 0.6 MG/DL (0.1-1.0); CALCIUM 8.8 MG/DL (8.5-10.1); CREATININE SERUM 1.88 MG/DL (0.60-1.30); POTASSIUM 5.5 MMOL/L (3.6-5.0); TOTAL PROTEIN 6.1 GM/DL (6.4-8.2)
== END 2017-08-30 08:57 | disposition home or self-care (01) ==
LOC: ONC 10:37
PROVIDERS: ATTEND Internal Medicine Hematology & Oncology
DX: C85.10 Unspecified B-cell lymphoma, unspecified site (principal); Z85.528 Personal history of other malignant neoplasm of kidney; N18.3 Chronic kidney disease, stage 3 (moderate); D69.6 Thrombocytopenia, unspecified; Z79.899 Other long term (current) drug therapy
CPT/HCPCS: 36415; 80053; 83615; 85025; 99213

== ENCOUNTER → 2017-08-22 | Outpatient (CLI) | payer MEDICARE, BC ==
--- NOTE | 2017-08-22 12:03 | Diagnostic Imaging Report ---
CLINICAL INDICATION: Frontal sinus pain and persistent cough. EXAM: Chest x-ray, PA and lateral views. COMPARISON: Portable chest x-ray dated 02/20/2017. FINDINGS: There are slight patchy areas of airspace infiltrate seen bilaterally, which is worse in both lung bases. Likely nipple shadow in the periphery of the right lung base. Stable postop changes in the chest with sternotomy wires and mediastinal clips. Pulmonary vasculature and cardiac silhouette are within normal limits. There are hypertrophic spurs involving the thoracic spine. IMPRESSION: 1: There is concern for mild bilateral lung infiltrates/infectious or inflammatory process. Followup chest x-ray in 2-4 weeks is suggested to evaluate for interval resolution of this finding. 2: Suspected nipple shadow overlying the periphery of the right lung base. Followup chest x-ray exam should include nipple markers to further evaluate this area. Dictated by: Dictated on workstation # [id number]
--- NOTE | 2017-08-22 12:38 | Diagnostic Imaging Report ---
CLINICAL INDICATION: Patient congestion and cough for past month. EXAM: X-ray of the skull, AP, Smith, and lateral views. COMPARISON: None. FINDINGS AND IMPRESSION: 1: There is concern for possible mucosal thickening in both maxillary sinuses. The remainder of the paranasal sinuses are unremarkable as visualized. 2: There is rightward nasal septal deviation. Otherwise, there is no craniofacial bony abnormality. 3: Visualized upper cervical spine degenerative disease with hypertrophic spurs. Dictated by: Dictated on workstation # [id number]
== END ==
LOC: RAD 10:54
PROVIDERS: ATTEND Family Medicine
DX: J34.2 Deviated nasal septum (principal); R05 Cough; M50.30 Other cervical disc degeneration, unspecified cervical region; M46.02 Spinal enthesopathy, cervical region
CPT/HCPCS: 70220; 71046

== ENCOUNTER → 2017-09-05 | Outpatient (CLI) | payer MEDICARE, BC ==
--- NOTE | 2017-09-05 11:04 | Diagnostic Imaging Report ---
INDICATION: COUGH USE NIPPLE MARKERS COMPARISON: 08/22/2017 FINDINGS: Frontal and lateral views of the chest demonstrate normal heart size and pulmonary vascularity. External nipple markers were placed. A few small micronodules are noted within the upper lung aly. Largest measures approximately 9 mm on the left. There is no large effusion or pneumothorax. No focal alveolar consolidation is identified. Sternotomy wires and calcified aortic atherosclerosis noted. The visualized osseous structures show no acute abnormalities. IMPRESSION: 1. Multiple small micronodules within the bilateral upper lung aly. Note is made of multiple pulmonary nodules on previous CT chest dated 11/16/2016. May want to consider repeat CT chest to evaluate for progression versus stability. 2. No evidence of failure or focal infiltrate. Dictated by: Dictated on workstation # [id number]
== END ==
LOC: RAD 08:35
PROVIDERS: ATTEND Family Medicine
DX: R91.8 Other nonspecific abnormal finding of lung field (principal); R05 Cough
CPT/HCPCS: 71046

== ENCOUNTER 2017-11-21 09:47 | Outpatient (RCR) | payer MEDICARE, BC ==
[2017-08-30 09:21] LABS: BASOPHILS # (AUTO) 0.1 10^3/uL (0.0-0.1); BASOPHILS % (AUTO) 0 % (0-10); EOSINOPHILS # (AUTO) 0.3 10^3/uL (0.0-0.3); EOSINOPHILS % (AUTO) 1 % (0-10); HEMATOCRIT 35 % (40-54); HEMOGLOBIN 11.5 G/DL (13.3-17.7); LYMPHOCYTES # (AUTO) 29.4 X 10^3 (1.0-4.0); LYMPHOCYTES % (AUTO) 86 % (12-44); MEAN CORPUSCULAR HEMOGLOBIN 28 PG (25-34); MEAN CORPUSCULAR HGB CONC 33 G/DL (32-36); MEAN CORPUSCULAR VOLUME 85 FL (80-99); MONOCYTES # (AUTO) 1.3 X 10^3 (0.0-1.0); MONOCYTES % (AUTO) 4 % (0-12); NEUTROPHILS # (AUTO) 3.2 X 10^3 (1.8-7.8); NEUTROPHILS % (AUTO) 10 % (42-75); PLATELET COUNT 127 10^3/uL (130-400); RED BLOOD COUNT 4.11 10^6/uL (4.35-5.85); RED CELL DISTRIBUTION WIDTH 14.9 % (10.0-14.5)
[2017-08-30 09:22] LABS: WHITE BLOOD COUNT 34.4 10^3/uL (4.3-11.0)
[2017-08-30 09:44] LABS: ALBUMIN 3.4 GM/DL (3.2-4.5); BILIRUBIN,TOTAL 0.3 MG/DL (0.1-1.0); CALCIUM 8.6 MG/DL (8.5-10.1); POTASSIUM 5.3 MMOL/L (3.6-5.0); TOTAL PROTEIN 5.8 GM/DL (6.4-8.2)
[2017-11-21 09:57] LABS: BASOPHILS % (AUTO) 0 % (0-10); EOSINOPHILS # (AUTO) 0.2 10^3/uL (0.0-0.3); EOSINOPHILS % (AUTO) 1 % (0-10); HEMATOCRIT 35 % (40-54); HEMOGLOBIN 11.6 G/DL (13.3-17.7); LYMPHOCYTES # (AUTO) 16.2 X 10^3 (1.0-4.0); LYMPHOCYTES % (AUTO) 84 % (12-44); MEAN CORPUSCULAR HEMOGLOBIN 28 PG (25-34); MEAN CORPUSCULAR HGB CONC 33 G/DL (32-36); MEAN CORPUSCULAR VOLUME 84 FL (80-99); MEAN PLATELET VOLUME 10.9 FL (7.4-10.4); MONOCYTES # (AUTO) 1.2 X 10^3 (0.0-1.0); MONOCYTES % (AUTO) 6 % (0-12); NEUTROPHILS # (AUTO) 1.6 X 10^3 (1.8-7.8); NEUTROPHILS % (AUTO) 8 % (42-75); PLATELET COUNT 83 10^3/uL (130-400); RED BLOOD COUNT 4.19 10^6/uL (4.35-5.85); RED CELL DISTRIBUTION WIDTH 15.5 % (10.0-14.5); WHITE BLOOD COUNT 19.3 10^3/uL (4.3-11.0)
[2017-11-21 10:19] LABS: ALBUMIN 3.7 GM/DL (3.2-4.5); BILIRUBIN,TOTAL 0.4 MG/DL (0.1-1.0); CALCIUM 8.7 MG/DL (8.5-10.1); CREATININE SERUM 2.08 MG/DL (0.60-1.30); POTASSIUM 5.5 MMOL/L (3.6-5.0)
== END 2017-11-28 | disposition home or self-care (01) ==
LOC: ONC 09:47
PROVIDERS: ATTEND Internal Medicine Hematology & Oncology
DX: C85.10 Unspecified B-cell lymphoma, unspecified site (principal); Z85.528 Personal history of other malignant neoplasm of kidney; I12.9 Hypertensive chronic kidney disease with stage 1 through stage 4 chronic kidney disease, or unspecified chronic kidney disease; E11.22 Type 2 diabetes mellitus with diabetic chronic kidney disease; N18.3 Chronic kidney disease, stage 3 (moderate); D69.6 Thrombocytopenia, unspecified; I25.10 Atherosclerotic heart disease of native coronary artery without angina pectoris; D80.1 Nonfamilial hypogammaglobulinemia; E78.00 Pure hypercholesterolemia, unspecified; M10.9 Gout, unspecified; Z95.1 Presence of aortocoronary bypass graft; Z79.4 Long term (current) use of insulin; Z79.899 Other long term (current) drug therapy
CPT/HCPCS: 36415; 80053; 83615; 85025; 99213

== ENCOUNTER → 2017-11-21 | Outpatient (CLI) | payer MEDICARE, BC ==
--- NOTE | 2017-11-21 12:49 | Diagnostic Imaging Report ---
PROCEDURE: CT chest and abdomen without contrast. TECHNIQUE: Axial images were obtained from the thoracic inlet through the iliac crest without the administration of intravenous contrast. INDICATION: Chronic lymphocytic leukemia, followup. COMPARISON: Comparison is made with prior CT from 11/16/2016. CT CHEST: FINDINGS: A left supraclavicular lymph node measures 1.6 x 1.3 cm compared with 1.7 x 1.5 cm. Left axillary lymph node measures 2.0 x 1.3 cm compared with 1.8 x 1.3 cm. Right axillary lymph node measures 2.4 x 1.5 cm compared with 2.0 x 1.4 cm. Bulky mediastinal lymphadenopathy is again seen. A right upper paratracheal node short axis measurement has increased to 1.9 cm compared with 1.7 cm. More inferiorly, a paratracheal node demonstrates a short axis measurement of 2.1 cm compared with 1.7 cm. Subcarinal soft tissue measures 5.6 x 2.2 cm compared with 5.3 x 2.4 cm. Coronary arterial calcifications are again noted. There is no pericardial fluid. Small right pleural effusion persists. No left-sided effusion is seen. Innumerable bilateral pulmonary nodules appear to be stable allowing for slight differences in slice position. IMPRESSION: Stable bilateral pulmonary nodules. There has been some slight increase in size of bilateral axillary and mediastinal lymph nodes when compared with the examination from one year earlier. Moderate right-sided pleural effusion persists. CT ABDOMEN: FINDINGS: No discrete liver mass is detected. Multiple small stones within the gallbladder are noted. Hepatomegaly persists. The pancreas is unremarkable. Adrenal glands appear stable. Right kidney is unremarkable. Aorta and iliac vessels remain heavily calcified. A abby hepatis lymph node measures approximately 4.6 x 3.5 cm compared with 4.5 x 3.1 cm. Bulky central retroperitoneal lymphadenopathy is again noted. An aortocaval node appears increased at 3.3 x 2.3 cm compared with 2.5 x 1.8 cm. A left periaortic node measures 4.3 x 3.6 cm compared with 3.4 x 3.0 cm. Mesenteric nodes are again noted, slightly larger on the left measuring 2.0 x 1.5 cm compared with 1.7 x 1.8 cm. There is no ascites. The bowel loops are normal in caliber. IMPRESSION: 1. Slight increase in size of abdominal lymphadenopathy when compared to study one year earlier. No new abnormality is seen. Dictated by: Dictated on workstation # [id number]
== END ==
LOC: RAD 10:04
PROVIDERS: ATTEND Internal Medicine Hematology & Oncology
DX: C91.10 Chronic lymphocytic leukemia of B-cell type not having achieved remission (principal); R91.8 Other nonspecific abnormal finding of lung field; J90 Pleural effusion, not elsewhere classified
CPT/HCPCS: 71250; 74150

== ENCOUNTER 2018-02-28 14:38 | Outpatient (RCR) | payer MEDICARE, BC ==
[2018-02-28 15:04] LABS: BASOPHILS # (AUTO) 0.1 10^3/uL (0.0-0.1); BASOPHILS % (AUTO) 0 % (0-10); EOSINOPHILS # (AUTO) 0.6 10^3/uL (0.0-0.3); EOSINOPHILS % (AUTO) 1 % (0-10); HEMATOCRIT 35 % (40-54); HEMOGLOBIN 12.2 G/DL (13.3-17.7); LYMPHOCYTES # (AUTO) 54.7 X 10^3 (1.0-4.0); LYMPHOCYTES % (AUTO) 90 % (12-44); MEAN CORPUSCULAR HEMOGLOBIN 29 PG (25-34); MEAN CORPUSCULAR HGB CONC 35 G/DL (32-36); MEAN CORPUSCULAR VOLUME 83 FL (80-99); MEAN PLATELET VOLUME 11.5 FL (7.4-10.4); MONOCYTES # (AUTO) 1.8 X 10^3 (0.0-1.0); MONOCYTES % (AUTO) 3 % (0-12); NEUTROPHILS # (AUTO) 3.8 X 10^3 (1.8-7.8); NEUTROPHILS % (AUTO) 6 % (42-75); PLATELET COUNT 104 10^3/uL (130-400); RED BLOOD COUNT 4.21 10^6/uL (4.35-5.85); RED CELL DISTRIBUTION WIDTH 16.7 % (10.0-14.5)
[2018-02-28 15:21] LABS: BILIRUBIN,TOTAL 0.4 MG/DL (0.1-1.0); CALCIUM 8.8 MG/DL (8.5-10.1); CREATININE SERUM 1.89 MG/DL (0.60-1.30); TOTAL PROTEIN 6.6 GM/DL (6.4-8.2)
[2018-02-28 15:23] LABS: POTASSIUM 7.6 MMOL/L (3.6-5.0)
[2018-03-01] MEDS ORDERED: CHOL20003 PO (08:49)
[2018-03-01] MEDS ORDERED: LATA2.5D5 OU (08:49)
[2018-03-01] MEDS ORDERED: CETI10TA20 PO (08:49)
[2018-03-01] MEDS ORDERED: LISI10TA2 PO (08:49)
[2018-03-01] MEDS ORDERED: SIMV20TA3 PO (08:49)
[2018-03-01] MEDS ORDERED: FURO40TA4 PO (08:49)
[2018-03-01] MEDS ORDERED: DOCU-163 PO (08:49)
[2018-03-01] MEDS ORDERED: METO-370 PO (08:49)
[2018-03-01] MEDS ORDERED: INSU100I29 SC (08:49)
== END 2018-03-10 | disposition home or self-care (01) ==
LOC: ONC 14:38
PROVIDERS: ATTEND Internal Medicine Hematology & Oncology
DX: C85.10 Unspecified B-cell lymphoma, unspecified site (principal); C91.10 Chronic lymphocytic leukemia of B-cell type not having achieved remission; Z85.528 Personal history of other malignant neoplasm of kidney; E87.5 Hyperkalemia; D80.1 Nonfamilial hypogammaglobulinemia; I12.9 Hypertensive chronic kidney disease with stage 1 through stage 4 chronic kidney disease, or unspecified chronic kidney disease; E11.22 Type 2 diabetes mellitus with diabetic chronic kidney disease; N18.3 Chronic kidney disease, stage 3 (moderate); I25.10 Atherosclerotic heart disease of native coronary artery without angina pectoris; E78.00 Pure hypercholesterolemia, unspecified; M10.9 Gout, unspecified; Z95.1 Presence of aortocoronary bypass graft; Z79.4 Long term (current) use of insulin; Z79.899 Other long term (current) drug therapy
CPT/HCPCS: 36415; 80053; 83615; 84132; 85025; 99213

== ENCOUNTER 2018-05-30 12:49 | Outpatient (RCR) | payer MEDICARE, BC ==
[2018-04-12 09:42] LABS: BASOPHILS # (AUTO) 0.1 10^3/uL (0.0-0.1); BASOPHILS % (AUTO) 0 % (0-10); EOSINOPHILS # (AUTO) 0.4 10^3/uL (0.0-0.3); EOSINOPHILS % (AUTO) 1 % (0-10); HEMATOCRIT 33 % (40-54); HEMOGLOBIN 10.6 G/DL (13.3-17.7); LYMPHOCYTES # (AUTO) 25.2 X 10^3 (1.0-4.0); LYMPHOCYTES % (AUTO) 89 % (12-44); MEAN CORPUSCULAR HEMOGLOBIN 29 PG (25-34); MEAN CORPUSCULAR HGB CONC 33 G/DL (32-36); MEAN CORPUSCULAR VOLUME 89 FL (80-99); MEAN PLATELET VOLUME 10.2 FL (7.4-10.4); MONOCYTES % (AUTO) 3 % (0-12); NEUTROPHILS # (AUTO) 1.7 X 10^3 (1.8-7.8); NEUTROPHILS % (AUTO) 6 % (42-75); PLATELET COUNT 75 10^3/uL (130-400); RED BLOOD COUNT 3.66 10^6/uL (4.35-5.85); RED CELL DISTRIBUTION WIDTH 16.5 % (10.0-14.5); WHITE BLOOD COUNT 28.3 10^3/uL (4.3-11.0)
[2018-04-12 10:04] LABS: ALBUMIN 3.8 GM/DL (3.2-4.5); BILIRUBIN,TOTAL 0.5 MG/DL (0.1-1.0); CALCIUM 8.8 MG/DL (8.5-10.1); CREATININE SERUM 1.71 MG/DL (0.60-1.30); POTASSIUM 5.2 MMOL/L (3.6-5.0); TOTAL PROTEIN 6.1 GM/DL (6.4-8.2)
[~2018-05-30 12:49] MED LIST changes: +CETI10TA20 PO; +CHOL20003 PO; +DOCU-163 PO; +FURO40TA4 PO; +INSU100I29 SC; +LATA2.5D5 OU; +LISI10TA2 PO; +METO-370 PO; +SIMV20TA3 PO
[2018-05-30 12:59] LABS: BASOPHILS # (AUTO) 0.1 10^3/uL (0.0-0.1); BASOPHILS % (AUTO) 0 % (0-10); EOSINOPHILS # (AUTO) 0.6 10^3/uL (0.0-0.3); EOSINOPHILS % (AUTO) 1 % (0-10); HEMATOCRIT 36 % (40-54); HEMOGLOBIN 11.7 G/DL (13.3-17.7); LYMPHOCYTES # (AUTO) 41.1 X 10^3 (1.0-4.0); LYMPHOCYTES % (AUTO) 91 % (12-44); MEAN CORPUSCULAR HEMOGLOBIN 29 PG (25-34); MEAN CORPUSCULAR HGB CONC 33 G/DL (32-36); MEAN CORPUSCULAR VOLUME 88 FL (80-99); MEAN PLATELET VOLUME 12.1 FL (7.4-10.4); MONOCYTES # (AUTO) 1.2 X 10^3 (0.0-1.0); MONOCYTES % (AUTO) 3 % (0-12); NEUTROPHILS # (AUTO) 2.2 X 10^3 (1.8-7.8); NEUTROPHILS % (AUTO) 5 % (42-75); PLATELET COUNT 79 10^3/uL (130-400); RED BLOOD COUNT 4.09 10^6/uL (4.35-5.85); RED CELL DISTRIBUTION WIDTH 14.9 % (10.0-14.5)
[2018-05-30 13:00] LABS: WHITE BLOOD COUNT 45.1 10^3/uL (4.3-11.0)
[2018-05-30 13:21] LABS: CREATININE SERUM 1.77 MG/DL (0.60-1.30); POTASSIUM 5.8 MMOL/L (3.6-5.0)
[2018-05-30 13:22] LABS: ALBUMIN 4.1 GM/DL (3.2-4.5); BILIRUBIN,TOTAL 0.5 MG/DL (0.1-1.0); CALCIUM 9.1 MG/DL (8.5-10.1); TOTAL PROTEIN 6.4 GM/DL (6.4-8.2)
== END 2018-07-11 | disposition home or self-care (01) ==
LOC: ONC 12:49
PROVIDERS: ATTEND Internal Medicine Hematology & Oncology
DX: C85.10 Unspecified B-cell lymphoma, unspecified site (principal); C91.10 Chronic lymphocytic leukemia of B-cell type not having achieved remission; Z85.528 Personal history of other malignant neoplasm of kidney; E87.5 Hyperkalemia; D80.1 Nonfamilial hypogammaglobulinemia; I12.9 Hypertensive chronic kidney disease with stage 1 through stage 4 chronic kidney disease, or unspecified chronic kidney disease; E11.22 Type 2 diabetes mellitus with diabetic chronic kidney disease; N18.3 Chronic kidney disease, stage 3 (moderate); I25.10 Atherosclerotic heart disease of native coronary artery without angina pectoris; E78.00 Pure hypercholesterolemia, unspecified; M10.9 Gout, unspecified; Z95.1 Presence of aortocoronary bypass graft; Z79.4 Long term (current) use of insulin; Z79.899 Other long term (current) drug therapy
CPT/HCPCS: 36415; 80053; 83615; 85025

== ENCOUNTER 2018-08-30 08:33 | Outpatient (RCR) | payer MEDICARE, BC ==
[2018-08-30 08:50] LABS: BASOPHILS # (AUTO) 0.1 10^3/uL (0.0-0.1); BASOPHILS % (AUTO) 0 % (0-10); EOSINOPHILS # (AUTO) 0.4 10^3/uL (0.0-0.3); EOSINOPHILS % (AUTO) 1 % (0-10); HEMATOCRIT 34 % (40-54); HEMOGLOBIN 10.7 G/DL (13.3-17.7); LYMPHOCYTES # (AUTO) 45.3 X 10^3 (1.0-4.0); LYMPHOCYTES % (AUTO) 90 % (12-44); MEAN CORPUSCULAR HEMOGLOBIN 27 PG (25-34); MEAN CORPUSCULAR HGB CONC 32 G/DL (32-36); MEAN CORPUSCULAR VOLUME 86 FL (80-99); MEAN PLATELET VOLUME 10.6 FL (7.4-10.4); MONOCYTES # (AUTO) 1.4 X 10^3 (0.0-1.0); MONOCYTES % (AUTO) 3 % (0-12); NEUTROPHILS # (AUTO) 3.1 X 10^3 (1.8-7.8); NEUTROPHILS % (AUTO) 6 % (42-75); PLATELET COUNT 129 10^3/uL (130-400); RED CELL DISTRIBUTION WIDTH 16.1 % (10.0-14.5)
[2018-08-30 08:51] LABS: WHITE BLOOD COUNT 50.3 10^3/uL (4.3-11.0)
[2018-08-30 09:06] LABS: ALBUMIN 3.7 GM/DL (3.2-4.5); BILIRUBIN,TOTAL 0.4 MG/DL (0.1-1.0); CALCIUM 8.6 MG/DL (8.5-10.1); CREATININE SERUM 2.09 MG/DL (0.60-1.30); POTASSIUM 5.3 MMOL/L (3.6-5.0); TOTAL PROTEIN 5.8 GM/DL (6.4-8.2)
[2018-10-11] MEDS ORDERED: OXYC-471 PO (12:48)
== END 2018-11-28 | disposition home or self-care (01) ==
LOC: ONC 08:33
PROVIDERS: ATTEND Internal Medicine Hematology & Oncology
DX: C91.10 Chronic lymphocytic leukemia of B-cell type not having achieved remission (principal); Z85.528 Personal history of other malignant neoplasm of kidney; E87.5 Hyperkalemia; D80.1 Nonfamilial hypogammaglobulinemia; I12.9 Hypertensive chronic kidney disease with stage 1 through stage 4 chronic kidney disease, or unspecified chronic kidney disease; E11.22 Type 2 diabetes mellitus with diabetic chronic kidney disease; N18.3 Chronic kidney disease, stage 3 (moderate); I25.10 Atherosclerotic heart disease of native coronary artery without angina pectoris; E78.00 Pure hypercholesterolemia, unspecified; M10.9 Gout, unspecified; Z95.1 Presence of aortocoronary bypass graft; Z79.4 Long term (current) use of insulin; Z79.899 Other long term (current) drug therapy
CPT/HCPCS: 36415; 80053; 82784; 83615; 85025; 99213

== ENCOUNTER → 2018-09-29 | Outpatient (CLI) | payer MEDICARE, BC ==
--- NOTE | 2018-09-29 10:53 | Diagnostic Imaging Report ---
INDICATION: CLL. TECHNIQUE: Axial imaging through the neck, chest, abdomen and pelvis was performed without contrast. COMPARISON: Comparison is made with prior CT neck study from 11/16/[address] chest and abdomen study from 11/21/2017. CT NECK: Visualized intracranial structures are unremarkable. Nasopharynx and oropharynx are unremarkable. Parapharyngeal fat planes are preserved. Epiglottis is unremarkable. The vocal cords appear to be symmetric. No thyroid mass is seen. Intraparotid lymph nodes are again seen and appear to be slightly smaller on today's exam. Again noted are numerous lymph nodes throughout the neck at all five stations, similar to prior exam. Marker node in the left parotid previously is similar in size at 1.6 x 0.8 cm compared with 1.7 x 0.7 cm. However, additional intraparotid nodes all appear to be slightly smaller in size. Marker in the left submandibular node measures 1.5 x 1.1 cm compared with 1.4 x 1.0 cm. Conglomerate of nodes in the right posterior neck measures 2.2 x 1.0 cm compared with 2.1 x 1.4 cm. Majority of nodes all appear to be very similar in size. No fluid collections are seen. IMPRESSION: Overall similar appearance to diffuse cervical lymphadenopathy when compared with prior study from 11/16/2016. No new abnormality is detected. CT CHEST: Previously noted left supraclavicular node is slightly larger at 1.8 x 1.4 cm compared with 1.6 x 1.3 cm on prior. Left axillary node measures 1.7 x 1.4 cm compared with 1.3 x 2.0 cm on prior. A right axillary node is 2.3 x 1.5 cm compared with 2.4 x 1.5 cm on prior. Bulky mediastinal lymphadenopathy is again noted. Right paratracheal node demonstrates short axis measurement of 1.9 cm, stable. Pretracheal node measures 2.2 cm compared with 2.1 cm. Continued marked subcarinal soft tissue fullness is identified, difficult to measure due to absence of intravenous contrast but visually appears to be slightly increased when compared with prior exam. Several lymph nodes in the AP window also appear to be slightly greater. Deonna are difficult to evaluate. No pericardial fluid is seen. The pleural fluid on the right has increased in size, now layering to a thickness of 6 cm compared with 2 cm. Innumerable pulmonary nodules are again noted throughout both lungs, measuring similar to prior study from 11/21/2017. There is some parenchymal consolidation in the right lower lobe consistent with some atelectasis or pneumonia. IMPRESSION: There has been some increase in the bulky mediastinal lymphadenopathy when compared with prior study from 11/21/2017. There is also increase in size of a right-sided pleural effusion which is now moderate. Bilateral innumerable pulmonary nodules are stable. CT ABDOMEN AND PELVIS: Hepatosplenomegaly persists. Small stones in the gallbladder are again seen. Pancreas is unremarkable. No adrenal mass is seen. The right kidney contains an exophytic cortical lesion in the upper pole which appears to be increased on today's study at approximately 15 mm compared with 9 mm. This is indeterminate but density measurements are not consistent with a simple cyst. Aorta is calcified. Marked bulky central retroperitoneal lymphadenopathy is again noted. Milagro hepatis lymphadenopathy may be slightly improved measuring 2.6 x 4.2 cm compared with 3.4 x 4.6 cm. Enlarged mesenteric lymph nodes persist and appear similar. Aorta is heavily calcified but nonaneurysmal. Small and large bowel loops are normal in caliber. Bladder is unremarkable. There is no ascites. Mildly prominent inguinal lymph nodes are noted bilaterally. There are enlarged iliac and obturator nodes bilaterally. This appears similar to CT dating back to 11/16/2016. IMPRESSION: 1. Hepatosplenomegaly and cholelithiasis. 2. Abdominal and pelvic lymphadenopathy, similar in appearance to examination one year ago. No new abnormality is detected. Dictated by: Dictated on workstation # [id number]
== END ==
LOC: RAD 09:27
PROVIDERS: ATTEND Nurse Practitioner Adult Health
DX: C91.10 Chronic lymphocytic leukemia of B-cell type not having achieved remission (principal); J90 Pleural effusion, not elsewhere classified; K80.20 Calculus of gallbladder without cholecystitis without obstruction; N18.3 Chronic kidney disease, stage 3 (moderate); R91.8 Other nonspecific abnormal finding of lung field
CPT/HCPCS: 70490; 71250; 74176

== ENCOUNTER 2018-10-06 10:37 | Outpatient (CLI) | payer MEDICARE, BC ==
[~2018-10-06] VITALS: Ht 175.3 cm; Wt 93.0 kg
[2018-10-06 11:25] LABS: BASOPHILS # (AUTO) 0.1 10^3/uL (0.0-0.1); BASOPHILS % (AUTO) 0 % (0-10); EOSINOPHILS # (AUTO) 0.4 10^3/uL (0.0-0.3); EOSINOPHILS % (AUTO) 1 % (0-10); HEMATOCRIT 35 % (40-54); LYMPHOCYTES # (AUTO) 30.8 X 10^3 (1.0-4.0); LYMPHOCYTES % (AUTO) 87 % (12-44); MEAN CORPUSCULAR HEMOGLOBIN 27 PG (25-34); MEAN CORPUSCULAR HGB CONC 32 G/DL (32-36); MEAN CORPUSCULAR VOLUME 85 FL (80-99); MEAN PLATELET VOLUME 11.5 FL (7.4-10.4); MONOCYTES # (AUTO) 1.5 X 10^3 (0.0-1.0); MONOCYTES % (AUTO) 4 % (0-12); NEUTROPHILS # (AUTO) 2.5 X 10^3 (1.8-7.8); NEUTROPHILS % (AUTO) 7 % (42-75); PLATELET COUNT 82 10^3/uL (130-400); RED CELL DISTRIBUTION WIDTH 15.6 % (10.0-14.5)
[2018-10-06 11:31] LABS: WHITE BLOOD COUNT 35.2 10^3/uL (4.3-11.0)
[2018-10-06 11:33] LABS: CALCIUM 8.6 MG/DL (8.5-10.1); CREATININE SERUM 1.54 MG/DL (0.60-1.30)
[2018-10-06 11:35] VITALS: BP 152/77
[2018-10-06 12:14] LABS: ANISOCYTOSIS SLIGHT; BAND NEUTROPHILS 0 %; BASOPHILS % (MANUAL) 0 %; ELLIPT/OVALOCYTES SLIGHT; EOSINOPHILS % (MANUAL) 1 %; LYMPHOCYTES % (MANUAL) 87 %; MONOCYTES % (MANUAL) 2 %; NEUTROPHILS % (MANUAL) 10 %
== END 2018-10-06 11:15 | disposition home or self-care (01) ==
LOC: PREOP 10:37
PROVIDERS: ATTEND Orthopaedic Surgery
DX: Z01.812 Encounter for preprocedural laboratory examination (principal); Z11.2 Encounter for screening for other bacterial diseases; M70.21 Olecranon bursitis, right elbow
CPT/HCPCS: 36415; 80048; 85007; 85027; 87081

== ENCOUNTER 2018-10-11 08:22 | Day surgery (SDC) | payer MEDICARE, BC ==
--- NOTE | 2018-10-04 18:42 | HISTORY AND PHYSICAL ---
DATE OF SERVICE: This will be for outpatient surgery on 10/11/2018 for right olecranon bursectomy with osteophyte excision. HISTORY OF PRESENT ILLNESS: The patient is a 78-year-old right-hand dominant gentleman with complaints of right elbow pain and swelling for several months. He reports that this has become activity limiting. He has tried treatment with rest and activity modifications, but due to functional impairment, failure to improve with conservative measures, the patient has elected to proceed with surgical intervention. Radiographs reveal an osteophyte of his olecranon. REVIEW OF SYSTEMS: No chest pain, no shortness of breath. No dysuria. PAST MEDICAL HISTORY: Renal cell carcinoma, chronic lymphocytic leukemia, renal insufficiency, diabetes, sinusitis, coronary artery disease, hyperlipidemia, hypertension. PAST SURGICAL HISTORY: Coronary artery bypass, left nephrectomy, left partial adrenalectomy. FAMILY HISTORY: Noncontributory. PRIMARY CARE PROVIDER: Dr. Villar. MEDICATIONS: Furosemide, bisacodyl, metoprolol, simvastatin, cetirizine, Levemir. ALLERGIES: CODEINE, CORTISONE, HYDROCODONE, NITROGLYCERIN, DIET COKE, . SOCIAL HISTORY: The patient denies alcohol, tobacco use. PHYSICAL EXAMINATION: GENERAL: The patient is well developed, well-nourished, in no acute distress. HEENT: Normocephalic, atraumatic. Pupils equal, round, reactive to light. Oropharynx is clear. NECK: Supple, with no lymphadenopathy. LUNGS: Clear to auscultation bilaterally. HEART: Regular rate and rhythm. ABDOMEN: Soft, nontender, nondistended. EXTREMITIES: Right elbow demonstrates a 4 x 4 cm fluid filled mass without erythema or warmth over his olecranon. He has symmetric elbow flexion, extension, pronation and supination of the forearm. He has negative Tinel's, cubital tunnel with intact sensation in radial, ulnar and median distribution distally. IMPRESSION: Symptomatic olecranon bursitis right elbow with osteophyte of the olecranon. PLAN: Right elbow olecranon bursectomy with osteophyte excision. The risks, benefits, options, ramifications and recovery were discussed at length with the patient. He understands and wishes to proceed. Job ID: [id number] DocumentID: [id number] Dictated Date: 10/02/2018 10:26:40 [employer] Back Tender Date: 10/02/2018 11:36:49 Dictated By: ALFONZO SRINIVASAN MD
[~2018-10-11] VITALS: Ht 175.3 cm; Wt 90.8 kg
--- OUTSIDE RECORDS SUMMARY | 2018-10-11 08:26 | XMS REPORT | Clinical Summary ---
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 If you do not see the information that you expected, contact Release of Information in the Health Information Management department at [phone] for further assistance in locating additional records.[facility] Allergies Comments Active Allergy Reactions Severity Noted Date I never want to experience this again. Aspartame NAUSEA AND High 11/05/2010 VOMITING, SYNCOPE With the hallucinations it was weird! I have never experienced anything like that before. Codeine NAUSEA AND Medium 11/05/2010 VOMITING, HALLUCINATION S Sweetner in diet products - convulsing, passes out Unclassified Drug SEE COMMENTS 01/12/2011 Medications End Date Status Medication Sig Dispensed Refills Start Date Active allopurinol (ZYLOPRIM) Take 100 mg 0 100 mg PO tablet by mouth daily. Active simvastatin (ZOCOR) 20 mg Take 20 mg by 0 PO tablet mouth at bedtime daily. Active glipiZIDE (GLUCOTROL) 5 Take 5 mg by 0 mg PO tablet mouth every morning. Active Fenofibric Acid Take 135 mg 0 (TRILIPIX) 135 mg PO CpDR by mouth daily. Active cetirizine (ZYRTEC) 10 mg Take 10 mg by 0 PO tablet mouth daily as needed. Active aspirin EC 81 mg tablet Take 1 Tab by 90 Tab 3 mouth daily. 2 Active metoprolol XL (TOPROL XL) Take 50 mg by 0 50 mg tablet mouth daily. Active INSULIN DETEMIR (LEVEMIR Inject 28 0 SC) Units into area(s) as directed at bedtime daily. Active bisacodyl (DULCOLAX) 5 mg Take 5 mg by 0 tablet mouth daily as needed. Active INSULIN DETEMIR SC Inject 24 0 Units into area(s) as directed daily before breakfast. Active canagliflozin (INVOKANA) Take 100 mg 0 100 mg tablet by mouth daily with breakfast. Active amLODIPine (NORVASC) 5 mg TAKE ONE 90 Tab 3 tablet TABLET BY 4 MOUTH EVERY DAY. NEED TO MAKE FOLLOW UP APPOINTMENT Active ingenol mebutate (PICATO) Apply to 0 0.015 % gel affected area. Active Problems Problem Noted Date CLL (chronic lymphocytic leukemia) 05/30/2014 Overview: On Observation. Renal cell carcinoma 02/09/2011 Overview: --12/24/10: Left open radical nephrectomy. 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 Scan show widespread lymphadenopathy. Currently on observation alone. Observation, suspected cardiovascular disease 02/09/2011 Overview: 11/11/10: Carotid Duplex: Mild internal and common carotid plaquing bilaterally without hemodynamically significant stenosis Diabetes mellitus 11/21/2010 CAD (coronary artery disease) 11/21/2010 Overview: 12/29/99 Echo ([place], [place]) - Small abnormality in the apex suspicious for mural thrombis. Mild mitral insufficiency. EF 45%. 01/03/00 Adenosine Cardiolite ([place], [place]) - Evidence of large apical infarction [...] distal portions of the vessel fill via [id number] collaterals. RAMUS: focal 95 percent stenosis proximally. LCX: Focal 70 percent stenosis in its proximal segment. RCA: 100 percent occluded proximally. The distal portions of the vessel fill via [id number] collaterals primarily from the interventricular septal branches [...] kidney disease) 11/11/2010 Type II diabetes mellitus 11/05/2010 Hypertension 11/05/2010 Hyperlipidemia 11/05/2010 Gout 11/05/2010 Arthritis of knee 11/05/2010 History of DE (myocardial infarction) 11/05/2010 Overview: 12/29/99 Echo ([place], [place]) - Small abnormality in the apex suspicious for mural thrombis. Mild mitral insufficiency. EF 45%. 01/03/00 Adenosine Cardiolite ([place], [place]) - Evidence of large apical infarction which involves the distal part of the inferior wall. EF 32%. Family History Medical History Relation Name Comments Cancer Brother Cancer Brother Heart Attack Father Coronary Artery Disease Maternal Grandfather Diabetes Mother Hypertension Mother Stroke Mother Cancer Sister kidney Relation Name Status Comments Brother Brother Father [place] (Age 65) Maternal Grandfather Mother Sister Alive Social History Date Tobacco Use Types Packs/Day Years Used Never Smoker Smokeless Tobacco: Never Used Alcohol Use Drinks/Week oz/Week Comments No quit 35 years ago Sex Assigned at Date Recorded Not on file Industry Job Start Date Occupation Not on file Not on file Not on file Travel End Travel History Travel Start No recent travel history available. Last Filed Vital Signs Time Taken Vital Sign Reading 02/21/2015 1:32 PM CDT Blood Pressure 148/75 02/21/2015 1:32 PM CDT Pulse 74 02/21/2015 1:32 PM CDT Temperature 36.8 C (98.2 F) - Respiratory Rate - 02/21/2015 1:32 PM CDT Oxygen Saturation 96% - Inhaled Oxygen - Concentration 02/21/2015 1:32 PM CDT Weight 108.7 kg (239 lb 9.6 oz) 02/21/2015 1:32 PM CDT Height 175.3 cm (5' 9.02") 02/21/2015 1:32 PM CDT Body Mass Index 35.37 Plan of Treatment Health Maintenance Due Date Last Done Comments PHYSICAL (COMPREHENSIVE) 1947 EXAM DILATED EYE EXAM 1958 DTAP/TDAP VACCINES (1 - 1958 Tdap) FOOT EXAM 1958 SHINGLES RECOMBINANT 1990 VACCINE (1 of 2) PNEUMONIA (PCV13/PPSV23) 2005 VACCINES (1 of 2 - PCV13) HBA1C 02/20/2012 08/22/2011, 11/11/2010, 06/18/2010 MICROALBUMIN 09/27/2012 09/28/2011, 05/25/2011 INFLUENZA VACCINE 02/08/2018 Results Not on filefrom Last 3 Months Insurance Type Payer Benefit Subscriber ID Effective Phone Address Plan / Dates Group Medicare MEDICARE MEDICARE xxxxxxxxxx 2005-P PART A AND resent B PPO BCBS [place] [employer] [place] xxxxxxxxx 1996-P FED EMP resent PROGRAM Advance Directives Patient has advance care planning documents, and code status on file. For more information, please contact: [facility] [address] [place] [address] Date Inactivated Comments Code Status Date Activated 12/28/2010 8:17 PM Full Code 12/24/2010 4:18 PM Provider has discussed Code Status No, discussion not w/Patient or Family? necessary based on Dx 11/21/2010 2:13 PM Full Code 11/17/2010 4:51 PM Provider has discussed Code Status Yes w/Patient or Family? 11/17/2010 4:51 PM Full Code 11/17/2010 3:59 PM Provider has discussed Code Status Yes w/Patient or Family? 11/12/2010 5:33 AM Full Code 11/11/2010 10:14 AM Provider has discussed Code Status Yes w/Patient or Family?
--- OUTSIDE RECORDS SUMMARY | 2018-10-11 08:30 | XMS REPORT | Continuity of Care Document ---
Author Author [facility] Organization [facility] Address Unknown Phone Unavailable Allergies Active Description Code Type Severity Reaction Onset Reported/Identified Relationship to Patient Clinical Status Yes codeine [id number] Drug Allergy Moderate HIGH ANXIETY, N 10/22/2010 Yes aspartame [id number] Drug Allergy Severe N/A 10/23/2010 Medications There is no data. Problems Date Dx Coded Attending Type Code Diagnosis Diagnosed By 10/22/2010 Ot 593.9 RENAL URETERAL DIS NOS 10/22/2010 Ot 599.70 HEMATURIA, UNSPECIFIED 10/23/2010 Ot 250.00 DIAB SAHARA WO COMPL, TYPE II OR UNSPEC TY 10/23/2010 Ot 593.9 RENAL URETERAL DIS NOS 10/23/2010 Ot 599.70 HEMATURIA, UNSPECIFIED 10/23/2010 Ot V58.69 OTH MED,LT, CURRENT USE 10/25/2010 Ot V55.6 ATTEN TO URINOSTOMY NEC 11/02/2010 Ot 038.9 SEPTICEMIA NOS 11/02/2010 Ot 189.0 MALIG NEOPL KIDNEY 11/02/2010 Ot 401.9 HYPERTENSION NOS 11/02/2010 Ot 599.0 URIN TRACT INFECTION NOS 11/02/2010 Ot 995.91 SEPSIS 11/02/2010 Ot V15.82 HISTORY OF TOBACCO USE 01/17/2015 Ot 518.89 01/17/2015 Ot 593.9 01/17/2015 Ot 715.36 01/17/2015 Ot 785.6 08/27/2015 MILAN SINGH Ot C85.10 08/27/2015 MILAN SINGH Ot D69.6 08/27/2015 MILAN SINGH Ot N18.3 08/27/2015 MILAN SINGH Ot Z79.899 08/27/2015 MILAN SINGH Ot Z85.528 10/16/2015 Ot 518.89 10/16/2015 Ot 593.9 10/16/2015 Ot 715.36 10/16/2015 Ot 785.6 10/16/2015 MILAN SINGH N Ot C85.10 10/16/2015 MILAN SINGH Ot D69.6 10/16/2015 MILAN SINGH N Ot N18.3 10/16/2015 MILAN SINGH N Ot Z79.899 10/16/2015 MILAN SINGH N Ot Z85.528 10/17/2015 AMRITA CRABTREE, GURMEET R Ot E11.9 10/17/2015 AMRITA CRABTREE, GURMEET R Ot Z79.4 10/17/2015 AMRITA CRABTREE, GURMEET R Ot E11.9 10/17/2015 AMRITA CRABTREE, UGRMEET R Ot Z79.4 10/17/2015 AMRITA CRABTREE, GURMEET R Ot E11.9 10/17/2015 AMRITA CRABTREE, GURMEET R Ot Z79.4 10/17/2015 AMRITA CRABTREE, GURMEET R Ot E11.9 10/17/2015 AMRITA CRABTREE, GURMEET R Ot Z79.4 10/29/2015 MILAN SINGH N Ot 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, UNSPECIFIED 10/29/2015 MILAN SINGH N Ot D69.6 THROMBOCYTOPENIA, UNSPECIFIED 10/29/2015 MILAN SINGH N Ot N18.3 CHRONIC KIDNEY DISEASE, STAGE 3 (MODERAT 10/29/2015 MILAN SINGH N Ot Z79.899 OTHER [facility] (CURRENT) DRUG THERAPY 10/29/2015 MILAN SINGH N Ot Z85.528 PERSONAL HISTORY OF OTHER MALIGNANT NEOP 10/29/2015 MILAN SINGH N Ot C91.10 CHRONIC LYMPHOCYTIC LEUK OF B-CELL TYPE 10/29/2015 AMRITA CRABTREE, GURMEET R Ot E11.9 TYPE 2 DIABETES MELLITUS WITHOUT COMPLIC 10/29/2015 AMRITA CRABTREE, GURMEET R Ot Z79.4 PROPERTY SITE MANAGER (CURRENT) USE OF INSULIN 11/04/2015 MILAN SINGH N Ot 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, UNSPECIFIED 11/10/2015 FRANCISCOMILAN ROSA N Ot D69.6 THROMBOCYTOPENIA, UNSPECIFIED 11/10/2015 FRANCISCO BOBMARCO N Ot N18.3 CHRONIC KIDNEY DISEASE, STAGE 3 (MODERAT 11/10/2015 FRANCISCOMILAN ROSA N Ot Z79.899 OTHER [facility] (CURRENT) DRUG THERAPY 11/10/2015 MILAN SINGH N Ot Z85.528 PERSONAL HISTORY OF OTHER MALIGNANT NEOP 12/04/2015 FRANCISCO BOBMARCO N Ot 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, UNSPECIFIED 12/04/2015 FRANCISCO BOBMARCO N Ot D69.6 THROMBOCYTOPENIA, UNSPECIFIED 12/04/2015 FRANCISCO, BOBAN N Ot N18.3 CHRONIC KIDNEY DISEASE, STAGE 3 (MODERAT 12/04/2015 FRANCISCOMILAN N Ot Z79.899 OTHER PROPERTY SITE MANAGER (CURRENT) DRUG THERAPY 12/04/2015 FRANCISCOMILAN N Ot Z85.528 PERSONAL HISTORY OF OTHER MALIGNANT NEOP 01/01/2016 FRANCISCO BOBMARCO N Ot 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, UNSPECIFIED 01/01/2016 FRANCISCO, BOBAN N Ot D69.6 THROMBOCYTOPENIA, UNSPECIFIED 01/01/2016 FRANCISCO, BOBAN N Ot N18.3 CHRONIC KIDNEY DISEASE, STAGE 3 (MODERAT 01/01/2016 FRANCISCO BOBAN N Ot Z79.899 OTHER [facility] (CURRENT) DRUG THERAPY 01/01/2016 FRANCISCO BOBAN N Ot Z85.528 PERSONAL HISTORY OF OTHER MALIGNANT NEOP 01/23/2016 CARMELLA TYLER Ot 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, UNSPECIFIED 01/23/2016 TYLERCARMELLA S TRANSMISSION REPAIRER Ot D69.6 THROMBOCYTOPENIA, UNSPECIFIED 01/23/2016 TYLERCARMELLA Messina S TRANSMISSION REPAIRER Ot N18.3 CHRONIC KIDNEY DISEASE, STAGE 3 (MODERAT 01/23/2016 TYLER, CARMELLA S TRANSMISSION REPAIRER Ot Z79.899 OTHER [facility] (CURRENT) DRUG THERAPY 01/23/2016 TYLER, CARMELLA S TRANSMISSION REPAIRER Ot Z85.528 PERSONAL HISTORY OF OTHER MALIGNANT NEOP 01/30/2016 MILAN SINGH Ot C91.10 CHRONIC LYMPHOCYTIC LEUK OF B-CELL TYPE 02/19/2016 CARMELLA TYLER S TRANSMISSION REPAIRER Ot 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, UNSPECIFIED 02/19/2016 CARMELLA TYLER TRANSMISSION REPAIRER Ot D69.6 THROMBOCYTOPENIA, UNSPECIFIED 02/19/2016 CARMELLA TYLER S TRANSMISSION REPAIRER Ot N18.3 CHRONIC KIDNEY DISEASE, STAGE 3 (MODERAT 02/19/2016 TYLER, CARMELLA S TRANSMISSION REPAIRER Ot Z79.899 OTHER [facility] (CURRENT) DRUG THERAPY 02/19/2016 JAYSON JEDTENZIN S TRANSMISSION REPAIRER Ot Z85.528 PERSONAL HISTORY OF OTHER MALIGNANT NEOP 02/20/2016 Ot 518.89 OTHER DISEASES OF LUNG, NEC 02/20/2016 Ot 593.9 RENAL URETERAL DIS NOS 02/20/2016 Ot 715.36 LOC OSTEOARTH NOS-L/LEG 02/20/2016 Ot 785.6 ENLARGEMENT LYMPH NODES 02/20/2016 MILAN SINGH Ot C91.10 CHRONIC LYMPHOCYTIC LEUK OF B-CELL TYPE 02/20/2016 GURMEET CROWE MD Ot E11.9 TYPE 2 DIABETES MELLITUS WITHOUT COMPLIC 02/20/2016 GURMEET CROWE MD Ot Z79.4 PROPERTY SITE MANAGER (CURRENT) USE OF INSULIN 02/20/2016 MILAN SINGH Ot 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, UNSPECIFIED 02/20/2016 MILAN SINGH Ot D69.6 THROMBOCYTOPENIA, UNSPECIFIED 02/20/2016 MILAN SINGH Ot N18.3 CHRONIC KIDNEY DISEASE, STAGE 3 (MODERAT 02/20/2016 MILAN SINGH N Ot Z79.899 OTHER [facility] (CURRENT) DRUG THERAPY 02/20/2016 MILAN SINGH Ot Z85.528 PERSONAL HISTORY OF OTHER MALIGNANT NEOP 02/20/2016 TYLERJEDTENZIN Messina TRANSMISSION REPAIRER Ot 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, UNSPECIFIED 02/20/2016 TYLERJEDTENZIN Mayuri TRANSMISSION REPAIRER Ot D69.6 THROMBOCYTOPENIA, UNSPECIFIED 02/20/2016 TYLER CARMELLA Messina TRANSMISSION REPAIRER Ot N18.3 CHRONIC KIDNEY DISEASE, STAGE 3 (MODERAT 02/20/2016 CARMELLA TYLER TRANSMISSION REPAIRER Ot Z79.899 OTHER PROPERTY SITE MANAGER (CURRENT) DRUG THERAPY 02/20/2016 JED TYLERTENZIN Messina TRANSMISSION REPAIRER Ot Z85.528 PERSONAL HISTORY OF OTHER MALIGNANT NEOP 02/22/2016 Ot 518.89 OTHER DISEASES OF LUNG, NEC 02/22/2016 Ot 593.9 RENAL URETERAL DIS NOS 02/22/2016 Ot 715.36 LOC OSTEOARTH NOS-L/LEG 02/22/2016 Ot 785.6 ENLARGEMENT LYMPH NODES 02/22/2016 MILAN SINGH Ot C91.10 CHRONIC LYMPHOCYTIC LEUK OF B-CELL TYPE 02/22/2016 AMRITA CRABTREE, GURMEET R Ot E11.9 TYPE 2 DIABETES MELLITUS WITHOUT COMPLIC 02/22/2016 AMRITA CRABTREE, GURMEET R Ot Z79.4 [facility] (CURRENT) USE OF INSULIN 02/22/2016 MILAN SINGH Ot 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, UNSPECIFIED 02/22/2016 MILAN SINGH Ot D69.6 THROMBOCYTOPENIA, UNSPECIFIED 02/22/2016 MILAN SINGH Ot N18.3 CHRONIC KIDNEY DISEASE, STAGE 3 (MODERAT 02/22/2016 MILAN SINGH Ot Z79.899 OTHER [facility] (CURRENT) DRUG THERAPY 02/22/2016 MILAN SINGH Ot Z85.528 PERSONAL HISTORY OF OTHER MALIGNANT NEOP 02/22/2016 TYLERCARMELLAP Ot 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, UNSPECIFIED 02/22/2016 CARMELLA TYLERP Ot D69.6 THROMBOCYTOPENIA, UNSPECIFIED 02/22/2016 CARMELLA TYLER TRANSMISSION REPAIRER Ot N18.3 CHRONIC KIDNEY DISEASE, STAGE 3 (MODERAT 02/22/2016 CARMELLA TYLER TRANSMISSION REPAIRER Ot Z79.899 OTHER PROPERTY SITE MANAGER (CURRENT) DRUG THERAPY 02/22/2016 CARMELLA TYLER TRANSMISSION REPAIRER Ot Z85.528 PERSONAL HISTORY OF OTHER MALIGNANT NEOP 02/22/2016 Ot 518.89 OTHER DISEASES OF LUNG, NEC 02/22/2016 Ot 593.9 RENAL URETERAL DIS NOS 02/22/2016 Ot 715.36 LOC OSTEOARTH NOS-L/LEG 02/22/2016 Ot 785.6 ENLARGEMENT LYMPH NODES 02/22/2016 MILAN SINGH Ot C91.10 CHRONIC LYMPHOCYTIC LEUK OF B-CELL TYPE 02/22/2016 AMRITA CRABTREE, GURMEET R Ot E11.9 TYPE 2 DIABETES MELLITUS WITHOUT COMPLIC 02/22/2016 AMRITA CRABTREE, GURMEET R Ot Z79.4 [facility] (CURRENT) USE OF INSULIN 02/22/2016 MILAN SINGH Ot 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, UNSPECIFIED 02/22/2016 MILAN SINGH Ot D69.6 THROMBOCYTOPENIA, UNSPECIFIED 02/22/2016 MILAN SINGH Ot N18.3 CHRONIC KIDNEY DISEASE, STAGE 3 (MODERAT 02/22/2016 MILAN SINGH Ot Z79.899 OTHER PROPERTY SITE MANAGER (CURRENT) DRUG THERAPY 02/22/2016 MILAN SINGH Ot Z85.528 PERSONAL HISTORY OF OTHER MALIGNANT NEOP 02/22/2016 CARMELLA TYLER TRANSMISSION REPAIRER Ot 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, UNSPECIFIED 02/22/2016 CARMELLA TYLER TRANSMISSION REPAIRER Ot D69.6 THROMBOCYTOPENIA, UNSPECIFIED 02/22/2016 CARMELLA TYLER TRANSMISSION REPAIRER Ot N18.3 CHRONIC KIDNEY DISEASE, STAGE 3 (MODERAT 02/22/2016 CARMELLA TYLER TRANSMISSION REPAIRER Ot Z79.899 OTHER [facility] (CURRENT) DRUG THERAPY 02/22/2016 CARMELLA TYLER TRANSMISSION REPAIRER Ot Z85.528 PERSONAL HISTORY OF OTHER MALIGNANT NEOP 02/25/2016 CARMELLA TYLER TRANSMISSION REPAIRER Ot 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, UNSPECIFIED 02/25/2016 CARMELLA TYLER TRANSMISSION REPAIRER Ot D69.6 THROMBOCYTOPENIA, UNSPECIFIED 02/25/2016 CARMELLA TYLER TRANSMISSION REPAIRER Ot N18.3 CHRONIC KIDNEY DISEASE, STAGE 3 (MODERAT 02/25/2016 CARMELLA TYLER TRANSMISSION REPAIRER Ot Z79.899 OTHER PROPERTY SITE MANAGER (CURRENT) DRUG THERAPY 02/25/2016 CARMELLA TYLER TRANSMISSION REPAIRER Ot Z85.528 PERSONAL HISTORY OF OTHER MALIGNANT NEOP 03/02/2016 MILAN SINGH N Ot 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, UNSPECIFIED 03/02/2016 MILAN SINGH N Ot D69.6 THROMBOCYTOPENIA, UNSPECIFIED 03/02/2016 MILAN SINGH N Ot N18.3 CHRONIC KIDNEY DISEASE, STAGE 3 (MODERAT 03/02/2016 MILAN SINGH N Ot Z79.899 OTHER PROPERTY SITE MANAGER (CURRENT) DRUG THERAPY 03/02/2016 MILAN SINGH N Ot Z85.528 PERSONAL HISTORY OF OTHER MALIGNANT NEOP 03/02/2016 Ot 518.89 OTHER DISEASES OF LUNG, NEC 03/02/2016 Ot 593.9 RENAL URETERAL DIS NOS 03/02/2016 Ot 715.36 LOC OSTEOARTH NOS-L/LEG 03/02/2016 Ot 785.6 ENLARGEMENT LYMPH NODES 03/02/2016 MILAN SINGH N Ot C91.10 CHRONIC LYMPHOCYTIC LEUK OF B-CELL TYPE 03/02/2016 AMRITA CRABTREE, GURMEET R Ot E11.9 TYPE 2 DIABETES MELLITUS WITHOUT COMPLIC 03/02/2016 AMRITA CRABTREE, GURMEET R Ot Z79.4 [facility] (CURRENT) USE OF INSULIN 03/02/2016 MILAN SINGH N Ot 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, UNSPECIFIED 03/02/2016 MILAN SINGH N Ot D69.6 THROMBOCYTOPENIA, UNSPECIFIED 03/02/2016 MILAN SINGH N Ot N18.3 CHRONIC KIDNEY DISEASE, STAGE 3 (MODERAT 03/02/2016 MILAN SINGH N Ot Z79.899 OTHER PROPERTY SITE MANAGER (CURRENT) DRUG THERAPY 03/02/2016 MILAN SINGH N Ot Z85.528 PERSONAL HISTORY OF OTHER MALIGNANT NEOP 03/02/2016 CARMELLA TYLER TRANSMISSION REPAIRER Ot 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, UNSPECIFIED 03/02/2016 CARMELLA TYLER TRANSMISSION REPAIRER Ot D69.6 THROMBOCYTOPENIA, UNSPECIFIED 03/02/2016 CARMELLA TYLER TRANSMISSION REPAIRER Ot N18.3 CHRONIC KIDNEY DISEASE, STAGE 3 (MODERAT 03/02/2016 CARMELLA TYLER TRANSMISSION REPAIRER Ot Z79.899 OTHER PROPERTY SITE MANAGER (CURRENT) DRUG THERAPY 03/02/2016 CARMELLA TYLER TRANSMISSION REPAIRER Ot Z85.528 PERSONAL HISTORY OF OTHER MALIGNANT NEOP 04/23/2016 FRANCISCO, BOBAN N Ot 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, UNSPECIFIED 04/23/2016 FRANCISCO, BOBAN N Ot D69.6 THROMBOCYTOPENIA, UNSPECIFIED 04/23/2016 FRANCISCO, BOBAN N Ot N18.3 CHRONIC KIDNEY DISEASE, STAGE 3 (MODERAT 04/23/2016 FRANCISCO, BOBAN N Ot Z79.899 OTHER [facility] (CURRENT) DRUG THERAPY 04/23/2016 FRANCISCO, BOBAN N Ot Z85.528 PERSONAL HISTORY OF OTHER MALIGNANT NEOP 06/01/2016 FRANCISCO, BOBAN N Ot 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, UNSPECIFIED 06/01/2016 FRANCISCO, BOBAN N Ot D69.6 THROMBOCYTOPENIA, UNSPECIFIED 06/01/2016 FRANCISCO, BOBAN N Ot N18.3 CHRONIC KIDNEY DISEASE, STAGE 3 (MODERAT 06/01/2016 FRANCISCO, BOBAN N Ot Z79.899 OTHER [facility] (CURRENT) DRUG THERAPY 06/01/2016 FRANCISCO, BOBAN N Ot Z85.528 PERSONAL HISTORY OF OTHER MALIGNANT NEOP 06/09/2016 FRANCISCO, BOBAN N Ot 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, UNSPECIFIED 06/09/2016 FRANCISCO, BOBAN N Ot D69.6 THROMBOCYTOPENIA, UNSPECIFIED 06/09/2016 FRANCISCO, BOBAN N Ot N18.3 CHRONIC KIDNEY DISEASE, STAGE 3 (MODERAT 06/09/2016 FRANCISCO, BOBAN N Ot Z79.899 OTHER PROPERTY SITE MANAGER (CURRENT) DRUG THERAPY 06/09/2016 FRANCISCO, BOBAN N Ot Z85.528 PERSONAL HISTORY OF OTHER MALIGNANT NEOP 07/21/2016 FRANCISCO, BOBAN N Ot 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, UNSPECIFIED 07/21/2016 FRANCISCO, BOBAN N Ot D69.6 THROMBOCYTOPENIA, UNSPECIFIED 07/21/2016 FRANCISCO, BOBAN N Ot N18.3 CHRONIC KIDNEY DISEASE, STAGE 3 (MODERAT 07/21/2016 FRANCISCO, BOBAN N Ot Z79.899 OTHER PROPERTY SITE MANAGER (CURRENT) DRUG THERAPY 07/21/2016 FRANCISCO, BOBAN N Ot Z85.528 PERSONAL HISTORY OF OTHER MALIGNANT NEOP 07/21/2016 FRANCISCO, BOBAN N Ot 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, UNSPECIFIED 07/21/2016 FRANCISCO, BOBAN N Ot D69.6 THROMBOCYTOPENIA, UNSPECIFIED 07/21/2016 FRANCISCO, BOBAN N Ot N18.3 CHRONIC KIDNEY DISEASE, STAGE 3 (MODERAT 07/21/2016 FRANCISCO, BOBAN N Ot Z79.899 OTHER [facility] (CURRENT) DRUG THERAPY 07/21/2016 FRANCISCO, BOBAN N Ot Z85.528 PERSONAL HISTORY OF OTHER MALIGNANT NEOP 07/22/2016 FRANCISCO, BOBAN N Ot 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, UNSPECIFIED 07/22/2016 FRANCISCO, BOBAN N Ot D69.6 THROMBOCYTOPENIA, UNSPECIFIED 07/22/2016 FRANCISCO, BOBAN N Ot N18.3 CHRONIC KIDNEY DISEASE, STAGE 3 (MODERAT 07/22/2016 FRANCISCO, BOBAN N Ot Z79.899 OTHER PROPERTY SITE MANAGER (CURRENT) DRUG THERAPY 07/22/2016 FRANCISCO, BOBAN N Ot Z85.528 PERSONAL HISTORY OF OTHER MALIGNANT NEOP 07/22/2016 FRANCISCO, BOBAN N Ot 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, UNSPECIFIED 07/22/2016 FRANCISCO, BOBAN N Ot D69.6 THROMBOCYTOPENIA, UNSPECIFIED 07/22/2016 FRANCISCO, BOBAN N Ot N18.3 CHRONIC KIDNEY DISEASE, STAGE 3 (MODERAT 07/22/2016 FRANCISCO, BOBAN N Ot Z79.899 OTHER PROPERTY SITE MANAGER (CURRENT) DRUG THERAPY 07/22/2016 FRANCISCO, BOBAN N Ot Z85.528 PERSONAL HISTORY OF OTHER MALIGNANT NEOP 07/28/2016 FRANCISCO, BOBAN N Ot 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, UNSPECIFIED 07/28/2016 FRANCISCO, BOBAN N Ot D69.6 THROMBOCYTOPENIA, UNSPECIFIED 07/28/2016 FRANCISCO, BOBAN N Ot N18.3 CHRONIC KIDNEY DISEASE, STAGE 3 (MODERAT 07/28/2016 FRANCISCO, BOBAN N Ot Z79.899 OTHER [facility] (CURRENT) DRUG THERAPY 07/28/2016 FRANCISCO, BOBAN N Ot Z85.528 PERSONAL HISTORY OF OTHER MALIGNANT NEOP 09/01/2016 FRANCISCO, BOBAN N Ot 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, UNSPECIFIED 09/01/2016 MILAN SINGH N Ot D69.6 THROMBOCYTOPENIA, UNSPECIFIED 09/01/2016 MILAN SINGH N Ot N18.3 CHRONIC KIDNEY DISEASE, STAGE 3 (MODERAT 09/01/2016 MILAN SINGH N Ot Z79.899 OTHER PROPERTY SITE MANAGER (CURRENT) DRUG THERAPY 09/01/2016 MILAN SINGH N Ot Z85.528 PERSONAL HISTORY OF OTHER MALIGNANT NEOP 09/08/2016 MILAN SINGH N Ot 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, UNSPECIFIED 09/08/2016 MILAN SINGH N Ot D69.6 THROMBOCYTOPENIA, UNSPECIFIED 09/08/2016 MILAN SINGH N Ot N18.3 CHRONIC KIDNEY DISEASE, STAGE 3 (MODERAT 09/08/2016 MILAN SINGH N Ot Z79.899 OTHER [facility] (CURRENT) DRUG THERAPY 09/08/2016 MILAN SINGH N Ot Z85.528 PERSONAL HISTORY OF OTHER MALIGNANT NEOP 10/25/2016 MILAN SINGH N Ot 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, UNSPECIFIED 10/25/2016 MILAN SINGH N Ot D69.6 THROMBOCYTOPENIA, UNSPECIFIED 10/25/2016 MILAN SINGH N Ot N18.3 CHRONIC KIDNEY DISEASE, STAGE 3 (MODERAT 10/25/2016 MILAN SINGH N Ot Z79.899 OTHER PROPERTY SITE MANAGER (CURRENT) DRUG THERAPY 10/25/2016 MILAN SINGH N Ot Z85.528 PERSONAL HISTORY OF OTHER MALIGNANT NEOP 11/09/2016 MILAN SINGH N Ot C91.10 CHRONIC LYMPHOCYTIC LEUK OF B-CELL TYPE 11/09/2016 AMRITA CRABTREE, GURMEET R Ot E11.9 TYPE 2 DIABETES MELLITUS WITHOUT COMPLIC 11/09/2016 GURMEET CROWE MD Ot Z79.4 PROPERTY SITE MANAGER (CURRENT) USE OF INSULIN 11/09/2016 CARMELLA TYLERP Ot 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, UNSPECIFIED 11/09/2016 CARMELLA TYLERP Ot D69.6 THROMBOCYTOPENIA, UNSPECIFIED 11/09/2016 CARMELLA TYLER TRANSMISSION REPAIRER Ot N18.3 CHRONIC KIDNEY DISEASE, STAGE 3 (MODERAT 11/09/2016 CARMELLA TYLER TRANSMISSION REPAIRER Ot Z79.899 OTHER PROPERTY SITE MANAGER (CURRENT) DRUG THERAPY 11/09/2016 CARMELLA TYLERP Ot Z85.528 PERSONAL HISTORY OF OTHER MALIGNANT NEOP 11/09/2016 MILAN SINGH N Ot 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, UNSPECIFIED 11/09/2016 MILAN SINGH N Ot D69.6 THROMBOCYTOPENIA, UNSPECIFIED 11/09/2016 MILAN SINGH N Ot N18.3 CHRONIC KIDNEY DISEASE, STAGE 3 (MODERAT 11/09/2016 MILAN SINGH N Ot Z79.899 OTHER [facility] (CURRENT) DRUG THERAPY 11/09/2016 MILAN SINGH N Ot Z85.528 PERSONAL HISTORY OF OTHER MALIGNANT NEOP 11/10/2016 GURMEET CROWE MD R Ot E11.9 TYPE 2 DIABETES MELLITUS WITHOUT COMPLIC 11/10/2016 GURMEET CROWE MD R Ot E11.9 TYPE 2 DIABETES MELLITUS WITHOUT COMPLIC 11/10/2016 GURMEET CROWE MD R Ot E11.9 TYPE 2 DIABETES MELLITUS WITHOUT COMPLIC 11/11/2016 FRANCISCO MILAN N Ot 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, UNSPECIFIED 11/11/2016 FRANCISCO MILAN N Ot D69.6 THROMBOCYTOPENIA, UNSPECIFIED 11/11/2016 FRANCISCO AMANDAMARCO N Ot N18.3 CHRONIC KIDNEY DISEASE, STAGE 3 (MODERAT 11/11/2016 MILAN SINGH N Ot Z79.899 OTHER [facility] (CURRENT) DRUG THERAPY 11/11/2016 FRANCISCO AMANDAMARCO N Ot Z85.528 PERSONAL HISTORY OF OTHER MALIGNANT NEOP 11/16/2016 FRANCICSO AMANDAMARCO N Ot C91.10 CHRONIC LYMPHOCYTIC LEUK OF B-CELL TYPE 11/16/2016 GURMEET CROWE MD R Ot E11.9 TYPE 2 DIABETES MELLITUS WITHOUT COMPLIC 11/16/2016 GURMEET CROWE MD Ot Z79.4 [facility] (CURRENT) USE OF INSULIN 11/16/2016 CARMELLA TYLERP Ot 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, UNSPECIFIED 11/16/2016 CARMELLA TYLER Ot D69.6 THROMBOCYTOPENIA, UNSPECIFIED 11/16/2016 TYLER, HILAH S TRANSMISSION REPAIRER Ot N18.3 CHRONIC KIDNEY DISEASE, STAGE 3 (MODERAT 11/16/2016 TYLERCARMELLA Messina TRANSMISSION REPAIRER Ot Z79.899 OTHER [facility] (CURRENT) DRUG THERAPY 11/16/2016 CARMELLA TYLER TRANSMISSION REPAIRER Ot Z85.528 PERSONAL HISTORY OF OTHER MALIGNANT NEOP 11/16/2016 FRANCISCO MILAN N Ot 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, UNSPECIFIED 11/16/2016 FRANCISCOMILAN ROSA N Ot D69.6 THROMBOCYTOPENIA, UNSPECIFIED 11/16/2016 FRANCISCOMILAN N Ot N18.3 CHRONIC KIDNEY DISEASE, STAGE 3 (MODERAT 11/16/2016 FRANCISCOMILAN ROSA N Ot Z79.899 OTHER [facility] (CURRENT) DRUG THERAPY 11/16/2016 MILAN SINGH N Ot Z85.528 PERSONAL HISTORY OF OTHER MALIGNANT NEOP 11/16/2016 GURMEET CROWE MD R Ot E11.9 TYPE 2 DIABETES MELLITUS WITHOUT COMPLIC 11/16/2016 GURMEET CROWE MD R Ot Z79.4 [facility] (CURRENT) USE OF INSULIN 12/01/2016 AMRITA CRABTREE GURMEET R Ot E11.9 TYPE 2 DIABETES MELLITUS WITHOUT COMPLIC 12/01/2016 GURMEET CROWE MD R Ot Z79.4 [facility] (CURRENT) USE OF INSULIN 12/13/2016 MILAN SINGH Ot C91.10 CHRONIC LYMPHOCYTIC LEUK OF B-CELL TYPE 12/20/2016 MILAN SINGH Ot C91.10 CHRONIC LYMPHOCYTIC LEUK OF B-CELL TYPE 12/30/2016 MILAN SINGH Ot 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, UNSPECIFIED 12/30/2016 MILAN SINGH N Ot D69.6 THROMBOCYTOPENIA, UNSPECIFIED 12/30/2016 FRANCISCOMILAN N Ot N18.3 CHRONIC KIDNEY DISEASE, STAGE 3 (MODERAT 12/30/2016 FRANCISCOMILAN ROSA N Ot Z79.899 OTHER PROPERTY SITE MANAGER (CURRENT) DRUG THERAPY 12/30/2016 FRANCISCOMILAN ROSA N Ot Z85.528 PERSONAL HISTORY OF OTHER MALIGNANT NEOP 01/05/2017 FRANCISCOMILAN N Ot 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, UNSPECIFIED 01/05/2017 FRANCISCOMILAN ROSA N Ot D69.6 THROMBOCYTOPENIA, UNSPECIFIED 01/05/2017 MILAN SINGH N Ot N18.3 CHRONIC KIDNEY DISEASE, STAGE 3 (MODERAT 01/05/2017 FRANCISCOMILAN N Ot Z79.899 OTHER PROPERTY SITE MANAGER (CURRENT) DRUG THERAPY 01/05/2017 FRANCISCOMILAN N Ot Z85.528 PERSONAL HISTORY OF OTHER MALIGNANT NEOP 02/08/2017 FRANCISCOMILAN N Ot 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, UNSPECIFIED 02/08/2017 FRANCISCOMILAN N Ot D69.6 THROMBOCYTOPENIA, UNSPECIFIED 02/08/2017 FRANCISCOMILAN N Ot D80.1 NONFAMILIAL HYPOGAMMAGLOBULINEMIA 02/08/2017 FRANCISCOMILAN N Ot 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 02/08/2017 FRANCISCOMILAN Ot E78.00 PURE HYPERCHOLESTEROLEMIA, UNSPECIFIED 02/08/2017 FRANCISCOMILAN N Ot I12.9 HYPERTENSIVE CHRONIC KIDNEY DISEASE W ST 02/08/2017 MILAN SINGH N Ot I25.10 ATHSCL HEART DISEASE OF [place] CORONARY 02/08/2017 FRANCISCOMILAN N Ot M10.9 GOUT, UNSPECIFIED 02/08/2017 FRANCISCOMILAN N Ot N18.3 CHRONIC KIDNEY DISEASE, STAGE 3 (MODERAT 02/08/2017 FRANCISCOMILAN N Ot R19.7 DIARRHEA, UNSPECIFIED 02/08/2017 FRANCISCOMILAN N Ot Z79.4 PROPERTY SITE MANAGER (CURRENT) USE OF INSULIN 02/08/2017 FRANCISCOMILAN N Ot Z79.899 OTHER PROPERTY SITE MANAGER (CURRENT) DRUG THERAPY 02/08/2017 FRANCISCOMILAN N Ot Z85.528 PERSONAL HISTORY OF OTHER MALIGNANT NEOP 02/08/2017 FRANCISCOMILAN N Ot Z85.828 PERSONAL HISTORY OF OTHER MALIGNANT NEOP 02/08/2017 MILAN SINGH N Ot Z95.1 PRESENCE OF AORTOCORONARY BYPASS GRAFT 02/20/2017 MILAN SINGH N Ot C91.10 CHRONIC LYMPHOCYTIC LEUK OF B-CELL TYPE 02/20/2017 GURMEET CROWE MD Ot E11.9 TYPE 2 DIABETES MELLITUS WITHOUT COMPLIC 02/20/2017 GURMEET CROWE MD Ot Z79.4 [facility] (CURRENT) USE OF INSULIN 02/20/2017 CARMELLA TYLER TRANSMISSION REPAIRER Ot 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, UNSPECIFIED 02/20/2017 CARMELLA TYLER TRANSMISSION REPAIRER Ot D69.6 THROMBOCYTOPENIA, UNSPECIFIED 02/20/2017 CARMELLA TYLER TRANSMISSION REPAIRER Ot N18.3 CHRONIC KIDNEY DISEASE, STAGE 3 (MODERAT 02/20/2017 YTLERCARMELLA [place] TRANSMISSION REPAIRER Ot Z79.899 OTHER [facility] (CURRENT) DRUG THERAPY 02/20/2017 JAYSON CARMELLA [place] TRANSMISSION REPAIRER Ot Z85.528 PERSONAL HISTORY OF OTHER MALIGNANT NEOP 02/20/2017 GURMEET CROWE MD R Ot E11.9 TYPE 2 DIABETES MELLITUS WITHOUT COMPLIC 02/20/2017 GURMEET CROWE MD R Ot Z79.4 [facility] (CURRENT) USE OF INSULIN 02/20/2017 MILAN SINGH Ot C91.10 CHRONIC LYMPHOCYTIC LEUK OF B-CELL TYPE 02/20/2017 MILAN SINGH Ot 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, UNSPECIFIED 02/20/2017 MILAN SINGH Ot D69.6 THROMBOCYTOPENIA, UNSPECIFIED 02/20/2017 MILAN SINGH N Ot N18.3 CHRONIC KIDNEY DISEASE, STAGE 3 (MODERAT 02/20/2017 MILAN SINGH Ot Z79.899 OTHER [facility] (CURRENT) DRUG THERAPY 02/20/2017 MILAN SINGH Ot Z85.528 PERSONAL HISTORY OF OTHER MALIGNANT NEOP 02/20/2017 WINSOME CUEVAS Ot I25.2 OLD MYOCARDIAL INFARCTION 02/20/2017 WINSOME CUEVAS Ot N18.9 CHRONIC KIDNEY DISEASE, UNSPECIFIED 02/20/2017 WINSOME CUEVAS Ot R22.43 LOCALIZED SWELLING, MASS AND LUMP, LOWER 02/20/2017 WINSOME CUEVAS Ot R60.0 LOCALIZED EDEMA 02/20/2017 WINSOME CUEVAS Ot T50.905A ADVERSE EFFECT OF UNSP DRUG/MEDS/BIOL DELA CRUZ 02/20/2017 WINSOME CUEVAS Ot Z79.84 PROPERTY SITE MANAGER (CURRENT) USE OF ORAL HYPOGLYC 02/20/2017 WINSOME CUEVAS Ot Z85.6 PERSONAL HISTORY OF LEUKEMIA 02/22/2017 MILAN SINGH Ot 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, UNSPECIFIED 02/22/2017 FRANCISCO, MILAN N Ot D69.6 THROMBOCYTOPENIA, UNSPECIFIED 02/22/2017 FRANCISCO, MILAN N Ot N18.3 CHRONIC KIDNEY DISEASE, STAGE 3 (MODERAT 02/22/2017 FRANCISCOMILAN N Ot Z79.899 OTHER [facility] (CURRENT) DRUG THERAPY 02/22/2017 FRANCISCO, BOBAN N Ot Z85.528 PERSONAL HISTORY OF OTHER MALIGNANT NEOP 02/23/2017 FRANCISCO MILAN N Ot C91.10 CHRONIC LYMPHOCYTIC LEUK OF B-CELL TYPE 02/23/2017 GURMEET CROWE MD R Ot E11.9 TYPE 2 DIABETES MELLITUS WITHOUT COMPLIC 02/23/2017 GURMEET CROWE MD Ot Z79.4 PROPERTY SITE MANAGER (CURRENT) USE OF INSULIN 02/23/2017 CARMELLA TYLER TRANSMISSION REPAIRER Ot 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, UNSPECIFIED 02/23/2017 CARMELLA TYLERP Ot D69.6 THROMBOCYTOPENIA, UNSPECIFIED 02/23/2017 CARMELLA TYLER TRANSMISSION REPAIRER Ot N18.3 CHRONIC KIDNEY DISEASE, STAGE 3 (MODERAT 02/23/2017 TYLERCARMELLA [place] TRANSMISSION REPAIRER Ot Z79.899 OTHER PROPERTY SITE MANAGER (CURRENT) DRUG THERAPY 02/23/2017 CARMELLA TYLER TRANSMISSION REPAIRER Ot Z85.528 PERSONAL HISTORY OF OTHER MALIGNANT NEOP 02/23/2017 GURMEET CROWE MD R Ot E11.9 TYPE 2 DIABETES MELLITUS WITHOUT COMPLIC 02/23/2017 GURMEET CROWE MD R Ot Z79.4 [facility] (CURRENT) USE OF INSULIN 02/23/2017 MILAN SINGH N Ot C91.10 CHRONIC LYMPHOCYTIC LEUK OF B-CELL TYPE 02/23/2017 MILAN SINGH N Ot 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, UNSPECIFIED 02/23/2017 FRANCISCOMILAN N Ot D69.6 THROMBOCYTOPENIA, UNSPECIFIED 02/23/2017 FRANCISCO BOBMARCO N Ot N18.3 CHRONIC KIDNEY DISEASE, STAGE 3 (MODERAT 02/23/2017 FRANCISCOMILAN N Ot Z79.899 OTHER PROPERTY SITE MANAGER (CURRENT) DRUG THERAPY 02/23/2017 FRANCISCOMILAN ROSA N Ot Z85.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 PERSONAL HISTORY OF OTHER MALIGNANT NEOP 02/24/2017 WINSOME CUEVAS Ot I25.2 OLD MYOCARDIAL INFARCTION 02/24/2017 WINSOME CUEVAS Ot N18.9 CHRONIC KIDNEY DISEASE, UNSPECIFIED 02/24/2017 WINSOME CUEVAS Ot R22.43 LOCALIZED SWELLING, MASS AND LUMP, LOWER 02/24/2017 WINSOME CUEVAS Ot R60.0 LOCALIZED EDEMA 02/24/2017 WINSOME CUEVAS Ot T50.905A ADVERSE EFFECT OF UNSP DRUG/MEDS/BIOL DELA CRUZ 02/24/2017 WINSOME CUEVAS Ot Z79.84 [facility] (CURRENT) USE OF ORAL HYPOGLYC 02/24/2017 WINSOME CUEVAS Ot Z85.6 PERSONAL HISTORY OF LEUKEMIA 02/25/2017 MILAN SINGH Ot 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, UNSPECIFIED 02/25/2017 FRANCISCO BOBAN N Ot D69.6 THROMBOCYTOPENIA, UNSPECIFIED 02/25/2017 FRANCISCOMILAN N Ot N18.3 CHRONIC KIDNEY DISEASE, STAGE 3 (MODERAT 02/25/2017 FRANCISCO, BOBAN N Ot Z79.899 OTHER [facility] (CURRENT) DRUG THERAPY 02/25/2017 FRANCISCO, BOBAN N Ot Z85.528 PERSONAL HISTORY OF OTHER MALIGNANT NEOP 04/01/2017 FRANCISCO, BOBAN N Ot 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, UNSPECIFIED 04/01/2017 FRANCISCO, BOBAN N Ot D69.6 THROMBOCYTOPENIA, UNSPECIFIED 04/01/2017 FRANCISCO, BOBAN N Ot N18.3 CHRONIC KIDNEY DISEASE, STAGE 3 (MODERAT 04/01/2017 FRANCISCO, BOBAN N Ot Z79.899 OTHER PROPERTY SITE MANAGER (CURRENT) DRUG THERAPY 04/01/2017 FRANCISCO, BOBAN N Ot Z85.528 PERSONAL HISTORY OF OTHER MALIGNANT NEOP 04/06/2017 FRANCISCO, BOBAN N Ot 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, UNSPECIFIED 04/06/2017 FRANCISCO, BOBAN N Ot D69.6 THROMBOCYTOPENIA, UNSPECIFIED 04/06/2017 FRANCISCO, BOBAN N Ot N18.3 CHRONIC KIDNEY DISEASE, STAGE 3 (MODERAT 04/06/2017 FRANCISCO, BOBAN N Ot Z79.899 OTHER [facility] (CURRENT) DRUG THERAPY 04/06/2017 FRANCISCO, BOBAN N Ot Z85.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 PERSONAL HISTORY OF OTHER MALIGNANT NEOP 04/09/2017 MILAN SINGH N Ot 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, UNSPECIFIED 04/09/2017 MILAN SINGH N Ot D69.6 THROMBOCYTOPENIA, UNSPECIFIED 04/09/2017 MILAN SINGH N Ot N18.3 CHRONIC KIDNEY DISEASE, STAGE 3 (MODERAT 04/09/2017 MILAN SINGH N Ot Z79.899 OTHER [facility] (CURRENT) DRUG THERAPY 04/09/2017 MILAN SINGH N Ot Z85.528 PERSONAL HISTORY OF OTHER MALIGNANT NEOP 06/13/2017 PRIYANK CASSIDY MD Ot 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, UNSPECIFIED 06/13/2017 PRIYANK CASSIDY MD, Ot D69.6 THROMBOCYTOPENIA, UNSPECIFIED 06/13/2017 PRIYANK CASSIDY MD Ot N18.3 CHRONIC KIDNEY DISEASE, STAGE 3 (MODERAT 06/13/2017 PRIYANK CASSIDY MD Ot Z79.899 OTHER [facility] (CURRENT) DRUG THERAPY 06/13/2017 PRIYANK CASSIDY MD Ot Z85.528 PERSONAL HISTORY OF OTHER MALIGNANT NEOP 07/17/2017 PRIYANK CASSIDY MD, Ot 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, UNSPECIFIED 07/17/2017 PRIYANK CASSIDY MD Ot D69.6 THROMBOCYTOPENIA, UNSPECIFIED 07/17/2017 PRIYANK CASSIDY MD Ot N18.3 CHRONIC KIDNEY DISEASE, STAGE 3 (MODERAT 07/17/2017 PRIYANK CASSIDY MD Ot Z79.899 OTHER PROPERTY SITE MANAGER (CURRENT) DRUG THERAPY 07/17/2017 PRIYANK CASSIDY MD Ot Z85.528 PERSONAL HISTORY OF OTHER MALIGNANT NEOP 07/17/2017 MILAN SINGH N Ot C91.10 CHRONIC LYMPHOCYTIC LEUK OF B-CELL TYPE 07/17/2017 GURMEET CROWE MD R Ot E11.9 TYPE 2 DIABETES MELLITUS WITHOUT COMPLIC 07/17/2017 GURMEET CROWE MD R Ot Z79.4 PROPERTY SITE MANAGER (CURRENT) USE OF INSULIN 07/17/2017 CARMELLA TYLER Ot 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, UNSPECIFIED 07/17/2017 CARMELLA TYLER Ot D69.6 THROMBOCYTOPENIA, UNSPECIFIED 07/17/2017 TYLER, HILAH S TRANSMISSION REPAIRER Ot N18.3 CHRONIC KIDNEY DISEASE, STAGE 3 (MODERAT 07/17/2017 CARMELLA TYLER TRANSMISSION REPAIRER Ot Z79.899 OTHER [facility] (CURRENT) DRUG THERAPY 07/17/2017 CARMELLA TYLER TRANSMISSION REPAIRER Ot Z85.528 PERSONAL HISTORY OF OTHER MALIGNANT NEOP 07/17/2017 GURMEET CROWE MD R Ot E11.9 TYPE 2 DIABETES MELLITUS WITHOUT COMPLIC 07/17/2017 GURMEET CROWE MD R Ot Z79.4 [facility] (CURRENT) USE OF INSULIN 07/17/2017 FRANCISCO, AMANDAMARCO Jackie Ot C91.10 CHRONIC LYMPHOCYTIC LEUK OF B-CELL TYPE 07/17/2017 PRIYANK CASSIDY MD Ot 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, UNSPECIFIED 07/17/2017 PRIYANK CASSIDY MD Ot D69.6 THROMBOCYTOPENIA, UNSPECIFIED 07/17/2017 PRIYANK CASSIDY MD Ot N18.3 CHRONIC KIDNEY DISEASE, STAGE 3 (MODERAT 07/17/2017 PRIYANK CASSIDY MD Ot Z79.899 OTHER PROPERTY SITE MANAGER (CURRENT) DRUG THERAPY 07/17/2017 PRIYANK CASSIDY MD Ot Z85.528 PERSONAL HISTORY OF OTHER MALIGNANT NEOP 08/04/2017 PRIYANK CASSIDY MD Ot 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, UNSPECIFIED 08/04/2017 PRIYANK CASSIDY MD Ot D69.6 THROMBOCYTOPENIA, UNSPECIFIED 08/04/2017 PRIYANK CASSIDY MD Ot N18.3 CHRONIC KIDNEY DISEASE, STAGE 3 (MODERAT 08/04/2017 PRIYANK CASSIDY MD Ot Z79.899 OTHER PROPERTY SITE MANAGER (CURRENT) DRUG THERAPY 08/04/2017 PRIYANK CASSIDY MD Ot Z85.528 PERSONAL HISTORY OF OTHER MALIGNANT NEOP 08/10/2017 PRIYANK CASSIDY MD Ot 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, UNSPECIFIED 08/10/2017 PRIYANK CASSIDY MD Ot D69.6 THROMBOCYTOPENIA, UNSPECIFIED 08/10/2017 PRIYANK CASSIDY MD Ot N18.3 CHRONIC KIDNEY DISEASE, STAGE 3 (MODERAT 08/10/2017 PRIYANK CASSIDY MD Ot Z79.899 OTHER [facility] (CURRENT) DRUG THERAPY 08/10/2017 PRIYANK CASSIDY MD Ot Z85.528 PERSONAL HISTORY OF OTHER MALIGNANT NEOP 08/22/2017 GURMEET CROWE MD R Ot 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 08/22/2017 AMRITA CRABTREE GURMEET R Ot M46.02 SPINAL ENTHESOPATHY, CERVICAL REGION 08/22/2017 AMRITA CRABTREE GURMEET R Ot M50.30 OTHER CERVICAL DISC DEGENERATION, UNSP C 08/22/2017 AMRITA CRABTREE GURMEET R Ot R05 COUGH 08/30/2017 ANGE CRABTREE, PRIYANK Ot 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02 SPINAL ENTHESOPATHY, CERVICAL REGION 09/13/2017 AMRITA CRABTREE GURMEET R Ot M50.30 OTHER CERVICAL DISC DEGENERATION, UNSP C 09/13/2017 AMRITA CRABTREE GURMEET R Ot R05 COUGH 09/22/2017 AMRITA CRABTREE GURMEET R Ot 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 09/22/2017 AMRITA CRABTREE GURMEET R Ot M46.02 SPINAL ENTHESOPATHY, CERVICAL REGION 09/22/2017 AMRITA CRABTREE GURMEET R Ot M50.30 OTHER CERVICAL DISC DEGENERATION, UNSP C 09/22/2017 AMRITA CRABTREE GURMEET R Ot R05 COUGH 09/27/2017 AMRITA CRABTREE GURMEET R Ot R05 COUGH 09/27/2017 AMRITA CRABTREE GURMEET R Ot R91.8 OTHER NONSPECIFIC ABNORMAL FINDING OF [place] 09/28/2017 MILAN SINGH Ot 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, UNSPECIFIED 09/28/2017 MILAN SINGH Ot D69.6 THROMBOCYTOPENIA, UNSPECIFIED 09/28/2017 FRANCISCO, BOBAN N Ot D80.1 NONFAMILIAL HYPOGAMMAGLOBULINEMIA 09/28/2017 FRANCISCO, AMANDAAN N Ot 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 09/28/2017 FRANCISCO AMANDAMARCO N Ot E78.00 PURE HYPERCHOLESTEROLEMIA, UNSPECIFIED 09/28/2017 FRANCISCO, AMANDAAN N Ot I12.9 HYPERTENSIVE CHRONIC KIDNEY DISEASE W ST 09/28/2017 FRANCISCO MILAN N Ot I25.10 ATHSCL HEART DISEASE OF [place] CORONARY 09/28/2017 FRANCISCOMILAN N Ot M10.9 GOUT, UNSPECIFIED 09/28/2017 FRANCISCO, AMANDAAN N Ot N18.3 CHRONIC KIDNEY DISEASE, STAGE 3 (MODERAT 09/28/2017 FRANCISCOMILAN N Ot Z79.4 PROPERTY SITE MANAGER (CURRENT) USE OF INSULIN 09/28/2017 FRANCISCO BOBAN N Ot Z79.899 OTHER [facility] (CURRENT) DRUG THERAPY 09/28/2017 FRANCISCOMILAN N Ot Z85.528 PERSONAL HISTORY OF OTHER MALIGNANT NEOP 09/28/2017 FRANCISCOMILAN N Ot Z95.1 PRESENCE OF AORTOCORONARY BYPASS GRAFT 10/05/2017 FRANCISCO, MILAN N Ot 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, UNSPECIFIED 10/05/2017 FRANCISCOMILAN N Ot D69.6 THROMBOCYTOPENIA, UNSPECIFIED 10/05/2017 FRANCISCO MILAN N Ot D80.1 NONFAMILIAL HYPOGAMMAGLOBULINEMIA 10/05/2017 FRANCISCO, AMANDAMARCO N Ot 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 10/05/2017 FRANCISCO MILAN N Ot E78.00 PURE HYPERCHOLESTEROLEMIA, UNSPECIFIED 10/05/2017 FRANCISCO AMANDAAN N Ot I12.9 HYPERTENSIVE CHRONIC KIDNEY DISEASE W ST 10/05/2017 FRANCISCO MILAN N Ot I25.10 ATHSCL HEART DISEASE OF [place] CORONARY 10/05/2017 FRANCISCOMILAN N Ot M10.9 GOUT, UNSPECIFIED 10/05/2017 FRANCISCO, AMANDAAN N Ot N18.3 CHRONIC KIDNEY DISEASE, STAGE 3 (MODERAT 10/05/2017 FRANCISCOMILAN ROSA N Ot Z79.4 [facility] (CURRENT) USE OF INSULIN 10/05/2017 FRANCISCOAMANDAAN N Ot Z79.899 OTHER [facility] (CURRENT) DRUG THERAPY 10/05/2017 MILAN SINGH Ot Z85.528 PERSONAL HISTORY OF OTHER MALIGNANT NEOP 10/05/2017 MILAN SINGH Ot Z95.1 PRESENCE OF AORTOCORONARY BYPASS GRAFT 10/05/2017 GURMEET CROWE MD R Ot R05 COUGH 10/05/2017 GURMEET CROWE MD Ot R91.8 OTHER NONSPECIFIC ABNORMAL FINDING OF [place] 10/27/2017 MILAN SINGH Ot C91.10 CHRONIC LYMPHOCYTIC LEUK OF B-CELL TYPE 10/27/2017 GURMEET CROWE MD Ot E11.9 TYPE 2 DIABETES MELLITUS WITHOUT COMPLIC 10/27/2017 GURMEET CROWE MD Ot Z79.4 [facility] (CURRENT) USE OF INSULIN 10/27/2017 CARMELLA TYLER TRANSMISSION REPAIRER Ot 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, UNSPECIFIED 10/27/2017 CARMELLA TYLERP Ot D69.6 THROMBOCYTOPENIA, UNSPECIFIED 10/27/2017 CARMELLA TYLER TRANSMISSION REPAIRER Ot N18.3 CHRONIC KIDNEY DISEASE, STAGE 3 (MODERAT 10/27/2017 CARMELLA TYLER TRANSMISSION REPAIRER Ot Z79.899 OTHER [facility] (CURRENT) DRUG THERAPY 10/27/2017 CARMELLA TYLER TRANSMISSION REPAIRER Ot Z85.528 PERSONAL HISTORY OF OTHER MALIGNANT NEOP 10/27/2017 GURMEET CROWE MD Ot E11.9 TYPE 2 DIABETES MELLITUS WITHOUT COMPLIC 10/27/2017 GURMEET CROWE MD Ot Z79.4 PROPERTY SITE MANAGER (CURRENT) USE OF INSULIN 10/27/2017 MILAN SINGH Ot C91.10 CHRONIC LYMPHOCYTIC LEUK OF B-CELL TYPE 10/27/2017 GURMEET CROWE MD Ot 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 10/27/2017 GURMEET CROWE MD Ot M46.02 SPINAL ENTHESOPATHY, CERVICAL REGION 10/27/2017 GURMEET CROWE MD Ot M50.30 OTHER CERVICAL DISC DEGENERATION, UNSP C 10/27/2017 GURMEET CROWE MD Ot R05 COUGH 10/27/2017 MILAN SINGH Ot 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, UNSPECIFIED 10/27/2017 MILAN SINGH Ot D69.6 THROMBOCYTOPENIA, UNSPECIFIED 10/27/2017 MILAN SINGH Ot D80.1 NONFAMILIAL HYPOGAMMAGLOBULINEMIA 10/27/2017 MILAN SINGH Jackie Ot 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 10/27/2017 MILAN SINGH Jackie Ot E78.00 PURE HYPERCHOLESTEROLEMIA, UNSPECIFIED 10/27/2017 MILAN SINGH Jackie Ot I12.9 HYPERTENSIVE CHRONIC KIDNEY DISEASE W ST 10/27/2017 MILAN SINGH Jackie Ot I25.10 ATHSCL HEART DISEASE OF [place] CORONARY 10/27/2017 MILAN SINGH Jackie Ot M10.9 GOUT, UNSPECIFIED 10/27/2017 MILAN SINGH N Ot N18.3 CHRONIC KIDNEY DISEASE, STAGE 3 (MODERAT 10/27/2017 MILAN SINGH Jackie Ot Z79.4 PROPERTY SITE MANAGER (CURRENT) USE OF INSULIN 10/27/2017 MILAN SINGH N Ot Z79.899 OTHER PROPERTY SITE MANAGER (CURRENT) DRUG THERAPY 10/27/2017 MILAN SINGH Jackie Ot Z85.528 PERSONAL HISTORY OF OTHER MALIGNANT NEOP 10/27/2017 MIALN SINGH Jackie Ot Z95.1 PRESENCE OF AORTOCORONARY BYPASS GRAFT 10/27/2017 AMRITA CRABTREE, GURMEET R Ot R05 COUGH 10/27/2017 AMRITA CRABTREE, GURMEET R Ot R91.8 OTHER NONSPECIFIC ABNORMAL FINDING OF [place] 11/17/2017 MILAN SINGH Jackie Ot C91.10 CHRONIC LYMPHOCYTIC LEUK OF B-CELL TYPE 11/17/2017 MARITA CRABTREE, GURMEET R Ot E11.9 TYPE 2 DIABETES MELLITUS WITHOUT COMPLIC 11/17/2017 AMRITA CRABTREE, GURMEET R Ot Z79.4 PROPERTY SITE MANAGER (CURRENT) USE OF INSULIN 11/17/2017 CARMELLA TYLERP Ot 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, UNSPECIFIED 11/17/2017 CARMELLA TYLER Ot D69.6 THROMBOCYTOPENIA, UNSPECIFIED 11/17/2017 CARMELLA TYLERP Ot N18.3 CHRONIC KIDNEY DISEASE, STAGE 3 (MODERAT 11/17/2017 CARMELLA TYLERP Ot Z79.899 OTHER [facility] (CURRENT) DRUG THERAPY 11/17/2017 CARMELLA TYLERP Ot Z85.528 PERSONAL HISTORY OF OTHER MALIGNANT NEOP 11/17/2017 GURMEET CROWE MD R Ot E11.9 TYPE 2 DIABETES MELLITUS WITHOUT COMPLIC 11/17/2017 GURMEET CROWE MD Ot Z79.4 [facility] (CURRENT) USE OF INSULIN 11/17/2017 MILAN SINGH Ot C91.10 CHRONIC LYMPHOCYTIC LEUK OF B-CELL TYPE 11/17/2017 GURMEET CROWE MD Ot 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 11/17/2017 GURMEET CROWE MD Ot M46.02 SPINAL ENTHESOPATHY, CERVICAL REGION 11/17/2017 GURMEET CROWE MD Ot M50.30 OTHER CERVICAL DISC DEGENERATION, UNSP C 11/17/2017 GURMEET CROWE MD Ot R05 COUGH 11/17/2017 MILAN SINGH Ot 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, UNSPECIFIED 11/17/2017 MILAN SINGH Ot D69.6 THROMBOCYTOPENIA, UNSPECIFIED 11/17/2017 MILAN SINGH Ot D80.1 NONFAMILIAL HYPOGAMMAGLOBULINEMIA 11/17/2017 MILAN SINGH Ot 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 11/17/2017 MILAN SINGH Ot E78.00 PURE HYPERCHOLESTEROLEMIA, UNSPECIFIED 11/17/2017 MILAN SINGH Ot I12.9 HYPERTENSIVE CHRONIC KIDNEY DISEASE W ST 11/17/2017 MILAN SINGH Ot I25.10 ATHSCL HEART DISEASE OF [place] CORONARY 11/17/2017 MILAN SINGH Ot M10.9 GOUT, UNSPECIFIED 11/17/2017 MILAN SINGH Ot N18.3 CHRONIC KIDNEY DISEASE, STAGE 3 (MODERAT 11/17/2017 MILAN SINGH Ot Z79.4 [facility] (CURRENT) USE OF INSULIN 11/17/2017 MILAN SINGH Ot Z79.899 OTHER [facility] (CURRENT) DRUG THERAPY 11/17/2017 MILAN SINGH Ot Z85.528 PERSONAL HISTORY OF OTHER MALIGNANT NEOP 11/17/2017 MILAN SINGH Ot Z95.1 PRESENCE OF AORTOCORONARY BYPASS GRAFT 11/17/2017 GURMEET CROWE MD Ot R05 COUGH 11/17/2017 SEGLIE MD, GURMEET R Ot R91.8 OTHER NONSPECIFIC ABNORMAL FINDING OF [place] 11/22/2017 FRANCISCO MILAN Mejia Ot C91.10 CHRONIC LYMPHOCYTIC LEUK OF B-CELL TYPE 11/22/2017 FRANCISCO, MILAN Mejia Ot J90 PLEURAL EFFUSION, NOT ELSEWHERE CLASSIFI 11/22/2017 FRANCISCOMILAN N Ot R91.8 OTHER NONSPECIFIC ABNORMAL FINDING OF [place] 11/28/2017 FRANCISCO, MILAN N Ot 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, UNSPECIFIED 11/28/2017 MILAN SINGH N Ot D69.6 THROMBOCYTOPENIA, UNSPECIFIED 11/28/2017 FRANCISCOMILAN N Ot D80.1 NONFAMILIAL HYPOGAMMAGLOBULINEMIA 11/28/2017 MILAN SINGH N Ot 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 11/28/2017 MILAN SINGH Ot E78.00 PURE HYPERCHOLESTEROLEMIA, UNSPECIFIED 11/28/2017 MILAN SINGH Ot I12.9 HYPERTENSIVE CHRONIC KIDNEY DISEASE W ST 11/28/2017 MILAN SINGH Ot I25.10 ATHSCL HEART DISEASE OF [place] CORONARY 11/28/2017 MILAN SINGH Ot M10.9 GOUT, UNSPECIFIED 11/28/2017 FRANCISCOMILAN N Ot N18.3 CHRONIC KIDNEY DISEASE, STAGE 3 (MODERAT 11/28/2017 MILAN SINGH Ot Z79.4 PROPERTY SITE MANAGER (CURRENT) USE OF INSULIN 11/28/2017 MILAN SINGH N Ot Z79.899 OTHER [facility] (CURRENT) DRUG THERAPY 11/28/2017 MILAN SINGH Ot Z85.528 PERSONAL HISTORY OF OTHER MALIGNANT NEOP 11/28/2017 MILAN SINGH Ot Z95.1 PRESENCE OF AORTOCORONARY BYPASS GRAFT 12/13/2017 MILAN SINGH Ot C91.10 CHRONIC LYMPHOCYTIC LEUK OF B-CELL TYPE 12/13/2017 FRANCISCOMILAN Ot J90 PLEURAL EFFUSION, NOT ELSEWHERE CLASSIFI 12/13/2017 MILAN SINGH Ot R91.8 OTHER NONSPECIFIC ABNORMAL FINDING OF [place] 12/21/2017 FRANCISCOMILAN Ot 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, UNSPECIFIED 12/21/2017 MILAN SINGH Ot D69.6 THROMBOCYTOPENIA, UNSPECIFIED 12/21/2017 MILAN SINGH N Ot D80.1 NONFAMILIAL HYPOGAMMAGLOBULINEMIA 12/21/2017 FRANCISCOMILAN N Ot 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 12/21/2017 FRANCISCOMILAN Ot E78.00 PURE HYPERCHOLESTEROLEMIA, UNSPECIFIED 12/21/2017 FRANCISCOMILAN N Ot I12.9 HYPERTENSIVE CHRONIC KIDNEY DISEASE W ST 12/21/2017 MILAN SINGH N Ot I25.10 ATHSCL HEART DISEASE OF [place] CORONARY 12/21/2017 MILAN SINGH Ot M10.9 GOUT, UNSPECIFIED 12/21/2017 FRANCISCOMILAN Ot N18.3 CHRONIC KIDNEY DISEASE, STAGE 3 (MODERAT 12/21/2017 MILAN SINGH Ot Z79.4 PROPERTY SITE MANAGER (CURRENT) USE OF INSULIN 12/21/2017 MILAN SINGH Ot Z79.899 OTHER [facility] (CURRENT) DRUG THERAPY 12/21/2017 MILAN SINGH Ot Z85.528 PERSONAL HISTORY OF OTHER MALIGNANT NEOP 12/21/2017 MILAN SINGH Ot Z95.1 PRESENCE OF AORTOCORONARY BYPASS GRAFT 12/21/2017 MILAN SINGH Ot C91.10 CHRONIC LYMPHOCYTIC LEUK OF B-CELL TYPE 12/21/2017 MILAN SINGH Ot J90 PLEURAL EFFUSION, NOT ELSEWHERE CLASSIFI 12/21/2017 MILAN SINGH Ot R91.8 OTHER NONSPECIFIC ABNORMAL FINDING OF [place] 01/10/2018 MILAN SINGH Ot 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, UNSPECIFIED 01/10/2018 MILAN SINGH Ot D69.6 THROMBOCYTOPENIA, UNSPECIFIED 01/10/2018 MILAN SINGH Ot D80.1 NONFAMILIAL HYPOGAMMAGLOBULINEMIA 01/10/2018 MILAN SINGH Ot 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 01/10/2018 MILAN SINGH Ot E78.00 PURE HYPERCHOLESTEROLEMIA, UNSPECIFIED 01/10/2018 MILAN SINGH Ot I12.9 HYPERTENSIVE CHRONIC KIDNEY DISEASE W ST 01/10/2018 MILAN SINGH Ot I25.10 ATHSCL HEART DISEASE OF [place] CORONARY 01/10/2018 MILAN SINGH Ot M10.9 GOUT, UNSPECIFIED 01/10/2018 FRANCISCO, BOBAN N Ot N18.3 CHRONIC KIDNEY DISEASE, STAGE 3 (MODERAT 01/10/2018 FRANCISCO, BOBAN N Ot Z79.4 [facility] (CURRENT) USE OF INSULIN 01/10/2018 FRANCISCO, BOBAN N Ot Z79.899 OTHER [facility] (CURRENT) DRUG THERAPY 01/10/2018 FRANCISCO, BOBAN N Ot Z85.528 PERSONAL HISTORY OF OTHER MALIGNANT NEOP 01/10/2018 FRANCISCO, AMANDAAN N Ot Z95.1 PRESENCE OF AORTOCORONARY BYPASS GRAFT 01/12/2018 FRANCISCO, BOBAN N Ot 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, UNSPECIFIED 01/12/2018 FRANCISCO, BOBAN N Ot D69.6 THROMBOCYTOPENIA, UNSPECIFIED 01/12/2018 FRANCISCO, BOBAN N Ot D80.1 NONFAMILIAL HYPOGAMMAGLOBULINEMIA 01/12/2018 FRANCISCO, BOBAN N Ot 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 01/12/2018 FRANCISCOAMANDAAN N Ot E78.00 PURE HYPERCHOLESTEROLEMIA, UNSPECIFIED 01/12/2018 FRANCISCO BOBAN N Ot I12.9 HYPERTENSIVE CHRONIC KIDNEY DISEASE W ST 01/12/2018 FRANCISCO, BOBAN N Ot I25.10 ATHSCL HEART DISEASE OF [place] CORONARY 01/12/2018 FRANCISCOAMANDAAN N Ot M10.9 GOUT, UNSPECIFIED 01/12/2018 FRANCISCO, BOBAN N Ot N18.3 CHRONIC KIDNEY DISEASE, STAGE 3 (MODERAT 01/12/2018 FRANCISCOAMANDAAN N Ot Z79.4 PROPERTY SITE MANAGER (CURRENT) USE OF INSULIN 01/12/2018 FRANCISCOAMANDAAN N Ot Z79.899 OTHER [facility] (CURRENT) DRUG THERAPY 01/12/2018 FRANCISCO, BOBAN N Ot Z85.528 PERSONAL HISTORY OF OTHER MALIGNANT NEOP 01/12/2018 FRANCISCO, BOBAN N Ot Z95.1 PRESENCE OF AORTOCORONARY BYPASS GRAFT 02/27/2018 FRANCISCO, BOBAN N Ot 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, UNSPECIFIED 02/27/2018 FRANCISCO, BOBAN N Ot D69.6 THROMBOCYTOPENIA, UNSPECIFIED 02/27/2018 FRANCISCO, BOBAN N Ot D80.1 NONFAMILIAL HYPOGAMMAGLOBULINEMIA 02/27/2018 FRANCISCO, BOBAN N Ot 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 02/27/2018 MILAN SINGH Jackie Ot E78.00 PURE HYPERCHOLESTEROLEMIA, UNSPECIFIED 02/27/2018 MILAN SINGH Jackie Ot I12.9 HYPERTENSIVE CHRONIC KIDNEY DISEASE W ST 02/27/2018 MILAN SINGH Jackie Ot I25.10 ATHSCL HEART DISEASE OF [place] CORONARY 02/27/2018 MILAN SINGH Jackie Ot M10.9 GOUT, UNSPECIFIED 02/27/2018 MILAN SINGH Jackie Ot N18.3 CHRONIC KIDNEY DISEASE, STAGE 3 (MODERAT 02/27/2018 MILAN SINGH Jackie Ot Z79.4 PROPERTY SITE MANAGER (CURRENT) USE OF INSULIN 02/27/2018 FRANCISCO MILAN Mejia Ot Z79.899 OTHER [facility] (CURRENT) DRUG THERAPY 02/27/2018 FRANCISCO AMANDAMARCO Jackie Ot Z85.528 PERSONAL HISTORY OF OTHER MALIGNANT NEOP 02/27/2018 FRANCISCO, MILAN Mejia Ot Z95.1 PRESENCE OF AORTOCORONARY BYPASS GRAFT 02/28/2018 MILAN SINGH Ot C91.10 CHRONIC LYMPHOCYTIC LEUK OF B-CELL TYPE 02/28/2018 GURMEET CROWE MD Ot E11.9 TYPE 2 DIABETES MELLITUS WITHOUT COMPLIC 02/28/2018 GURMEET CROWE MD Ot Z79.4 PROPERTY SITE MANAGER (CURRENT) USE OF INSULIN 02/28/2018 CARMELLA TYLERP Ot 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, UNSPECIFIED 02/28/2018 CARMELLA TYLERP Ot D69.6 THROMBOCYTOPENIA, UNSPECIFIED 02/28/2018 CARMELLA TYLERP Ot N18.3 CHRONIC KIDNEY DISEASE, STAGE 3 (MODERAT 02/28/2018 CARMELLA TYLERP Ot Z79.899 OTHER [facility] (CURRENT) DRUG THERAPY 02/28/2018 CARMELLA TYLER Ot Z85.528 PERSONAL HISTORY OF OTHER MALIGNANT NEOP 02/28/2018 GURMEET CROWE MD Ot E11.9 TYPE 2 DIABETES MELLITUS WITHOUT COMPLIC 02/28/2018 GURMEET CROWE MD Ot Z79.4 PROPERTY SITE MANAGER (CURRENT) USE OF INSULIN 02/28/2018 MILAN SINGH Ot C91.10 CHRONIC LYMPHOCYTIC LEUK OF B-CELL TYPE 02/28/2018 GURMEET CROWE MD R Ot 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 02/28/2018 AMRITA CRABTREE, GURMEET R Ot M46.02 SPINAL ENTHESOPATHY, CERVICAL REGION 02/28/2018 GURMEET CROWE MD Ot M50.30 OTHER CERVICAL DISC DEGENERATION, UNSP C 02/28/2018 GURMEET CROWE MD R Ot R05 COUGH 02/28/2018 GURMEET CROWE MD R Ot R05 COUGH 02/28/2018 GURMEET CROWE MD R Ot R91.8 OTHER NONSPECIFIC ABNORMAL FINDING OF [place] 02/28/2018 MILAN SINGH Ot C91.10 CHRONIC LYMPHOCYTIC LEUK OF B-CELL TYPE 02/28/2018 MILAN SINGH Ot J90 PLEURAL EFFUSION, NOT ELSEWHERE CLASSIFI 02/28/2018 MILAN SINGH Ot R91.8 OTHER NONSPECIFIC ABNORMAL FINDING OF [place] 03/02/2018 KENN POPE MD, Ot C91.10 CHRONIC LYMPHOCYTIC LEUK OF B-CELL TYPE 03/02/2018 KENN POPE MD Ot E11.21 TYPE 2 DIABETES MELLITUS WITH DIABETIC N 03/02/2018 KENN POPE MD, Ot 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 03/02/2018 KENN POPE MD Ot E11.319 TYPE 2 DIABETES W UNSP DIABETIC RTNOP W/ 03/02/2018 KENN POPE MD Ot E78.00 PURE HYPERCHOLESTEROLEMIA, UNSPECIFIED 03/02/2018 KENN POPE MD, Ot E87.5 HYPERKALEMIA 03/02/2018 KENN POPE MD, Ot I12.9 HYPERTENSIVE CHRONIC KIDNEY DISEASE W ST 03/02/2018 KENN POPE MD, Ot I25.10 ATHSCL HEART DISEASE OF [place] CORONARY 03/02/2018 KENN POPE MD Ot M10.9 GOUT, UNSPECIFIED 03/02/2018 KENN POPE MD, Ot N18.3 CHRONIC KIDNEY DISEASE, STAGE 3 (MODERAT 03/02/2018 KENN POPE MD, Ot Z79.4 PROPERTY SITE MANAGER (CURRENT) USE OF INSULIN 03/02/2018 KENN POPE MD, Ot Z85.528 PERSONAL HISTORY OF OTHER MALIGNANT NEOP 03/02/2018 KENN POPE MD, Ot Z90.5 ACQUIRED ABSENCE OF KIDNEY 03/02/2018 KENN POPE MD, Ot Z95.1 PRESENCE OF AORTOCORONARY BYPASS GRAFT 03/05/2018 MILAN SINGH Jackie Ot 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, UNSPECIFIED 03/05/2018 MILAN SINGH Jackie Ot D69.6 THROMBOCYTOPENIA, UNSPECIFIED 03/05/2018 FRANCISCO AMANDAMARCO Jackie Ot D80.1 NONFAMILIAL HYPOGAMMAGLOBULINEMIA 03/05/2018 FRANCISCO MILAN Mejia Ot 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 03/05/2018 MILAN SINGH Jackie Ot E78.00 PURE HYPERCHOLESTEROLEMIA, UNSPECIFIED 03/05/2018 FRANCISCO MILAN Mejia Ot I12.9 HYPERTENSIVE CHRONIC KIDNEY DISEASE W ST 03/05/2018 FRANCISCO MILAN Mejia Ot I25.10 ATHSCL HEART DISEASE OF [place] CORONARY 03/05/2018 FRANCISCO MILAN Mejia Ot M10.9 GOUT, UNSPECIFIED 03/05/2018 FRANCISCO AMANDAMARCO Jackie Ot N18.3 CHRONIC KIDNEY DISEASE, STAGE 3 (MODERAT 03/05/2018 MILAN SINGH N Ot Z79.4 PROPERTY SITE MANAGER (CURRENT) USE OF INSULIN 03/05/2018 FRANCISCO AMANDAMAROC N Ot Z79.899 OTHER [facility] (CURRENT) DRUG THERAPY 03/05/2018 MILAN SINGH N Ot Z85.528 PERSONAL HISTORY OF OTHER MALIGNANT NEOP 03/05/2018 MILAN SINGH Jackie Ot Z95.1 PRESENCE OF AORTOCORONARY BYPASS GRAFT 03/07/2018 KENN POPE MD, Ot C91.10 CHRONIC LYMPHOCYTIC LEUK OF B-CELL TYPE 03/07/2018 KENN POPE MD, Ot E11.21 TYPE 2 DIABETES MELLITUS WITH DIABETIC N 03/07/2018 KENN POPE MD, Ot 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 03/07/2018 KENN POPE MD, Ot E11.319 TYPE 2 DIABETES W UNSP DIABETIC RTNOP W/ 03/07/2018 KENN POPE MD, Ot E78.00 PURE HYPERCHOLESTEROLEMIA, UNSPECIFIED 03/07/2018 KENN POPE MD, Ot E87.5 HYPERKALEMIA 03/07/2018 NIKO MD, KENN M Ot I12.9 HYPERTENSIVE CHRONIC KIDNEY DISEASE W ST 03/07/2018 KENN POPE MD Ot I25.10 ATHSCL HEART DISEASE OF [place] CORONARY 03/07/2018 KENN POPE MD Ot M10.9 GOUT, UNSPECIFIED 03/07/2018 KENN POPE MD Ot N18.3 CHRONIC KIDNEY DISEASE, STAGE 3 (MODERAT 03/07/2018 KENN POPE MD Ot Z79.4 PROPERTY SITE MANAGER (CURRENT) USE OF INSULIN 03/07/2018 KENN POPE MD Ot Z85.528 PERSONAL HISTORY OF OTHER MALIGNANT NEOP 03/07/2018 KENN POPE MD Ot Z90.5 ACQUIRED ABSENCE OF KIDNEY 03/07/2018 KENN POPE MD Ot Z95.1 PRESENCE OF AORTOCORONARY BYPASS GRAFT 03/07/2018 KENN POPE MD Ot C91.10 CHRONIC LYMPHOCYTIC LEUK OF B-CELL TYPE 03/07/2018 KENN POPE MD Ot E11.21 TYPE 2 DIABETES MELLITUS WITH DIABETIC N 03/07/2018 KENN POPE MD Ot 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 03/07/2018 KENN POPE MD Ot E11.319 TYPE 2 DIABETES W UNSP DIABETIC RTNOP W/ 03/07/2018 KENN POPE MD Ot E78.00 PURE HYPERCHOLESTEROLEMIA, UNSPECIFIED 03/07/2018 KENN POPE MD Ot E87.5 HYPERKALEMIA 03/07/2018 KENN POPE MD Ot I12.9 HYPERTENSIVE CHRONIC KIDNEY DISEASE W ST 03/07/2018 KENN POPE MD Ot I25.10 ATHSCL HEART DISEASE OF [place] CORONARY 03/07/2018 KENN POPE MD Ot M10.9 GOUT, UNSPECIFIED 03/07/2018 KENN POPE MD Ot N18.3 CHRONIC KIDNEY DISEASE, STAGE 3 (MODERAT 03/07/2018 KENN POPE MD Ot Z79.4 [facility] (CURRENT) USE OF INSULIN 03/07/2018 KENN POPE MD Ot Z85.528 PERSONAL HISTORY OF OTHER MALIGNANT NEOP 03/07/2018 KENN POPE MD Ot Z90.5 ACQUIRED ABSENCE OF KIDNEY 03/07/2018 KENN POPE MD Ot Z95.1 PRESENCE OF AORTOCORONARY BYPASS GRAFT 03/10/2018 FRANCISCOMILAN Ot 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, UNSPECIFIED 03/10/2018 FRANCISCOMILAN N Ot C91.10 CHRONIC LYMPHOCYTIC LEUK OF B-CELL TYPE 03/10/2018 FRANCISCOMILAN N Ot D80.1 NONFAMILIAL HYPOGAMMAGLOBULINEMIA 03/10/2018 FRANCISCOMILAN N Ot 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 03/10/2018 FRANCISCOMILAN N Ot E78.00 PURE HYPERCHOLESTEROLEMIA, UNSPECIFIED 03/10/2018 FRANCISCOMILAN N Ot E87.5 HYPERKALEMIA 03/10/2018 MILAN SINGH N Ot I12.9 HYPERTENSIVE CHRONIC KIDNEY DISEASE W ST 03/10/2018 MILAN SINGH N Ot I25.10 ATHSCL HEART DISEASE OF [place] CORONARY 03/10/2018 MILAN SINGH N Ot M10.9 GOUT, UNSPECIFIED 03/10/2018 FRANCISCOMILAN N Ot N18.3 CHRONIC KIDNEY DISEASE, STAGE 3 (MODERAT 03/10/2018 MILAN SINGH N Ot Z79.4 [facility] (CURRENT) USE OF INSULIN 03/10/2018 MILAN SINGH N Ot Z79.899 OTHER [facility] (CURRENT) DRUG THERAPY 03/10/2018 MILAN ISNGH N Ot Z85.528 PERSONAL HISTORY OF OTHER MALIGNANT NEOP 03/10/2018 MILAN SINGH Ot Z95.1 PRESENCE OF AORTOCORONARY BYPASS GRAFT 04/11/2018 MILAN SINGH N Ot 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, UNSPECIFIED 04/11/2018 MILAN SINGH N Ot C91.10 CHRONIC LYMPHOCYTIC LEUK OF B-CELL TYPE 04/11/2018 FRANCISCOMILAN N Ot D80.1 NONFAMILIAL HYPOGAMMAGLOBULINEMIA 04/11/2018 FRANCISCOMILAN N Ot 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 04/11/2018 FRANCISCOMILAN N Ot E78.00 PURE HYPERCHOLESTEROLEMIA, UNSPECIFIED 04/11/2018 FRANCISCOMILAN N Ot E87.5 HYPERKALEMIA 04/11/2018 FRANCISCOAMANDAAN N Ot I12.9 HYPERTENSIVE CHRONIC KIDNEY DISEASE W ST 04/11/2018 FRANCISCOAMANDAAN N Ot I25.10 ATHSCL HEART DISEASE OF [place] CORONARY 04/11/2018 FRANCISCOAMANDAAN N Ot M10.9 GOUT, UNSPECIFIED 04/11/2018 FRANCISCO, BOBAN N Ot N18.3 CHRONIC KIDNEY DISEASE, STAGE 3 (MODERAT 04/11/2018 FRANCISCOAMANDAAN N Ot Z79.4 PROPERTY SITE MANAGER (CURRENT) USE OF INSULIN 04/11/2018 FRANCISCO, BOBAN N Ot Z79.899 OTHER PROPERTY SITE MANAGER (CURRENT) DRUG THERAPY 04/11/2018 FRANCISCO, BOBAN N Ot Z85.528 PERSONAL HISTORY OF OTHER MALIGNANT NEOP 04/11/2018 FRANCISCO BOBAN N Ot Z95.1 PRESENCE OF AORTOCORONARY BYPASS GRAFT 06/05/2018 AMANDA SINGHAN N Ot 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, UNSPECIFIED 06/05/2018 MILAN SINGH N Ot C91.10 CHRONIC LYMPHOCYTIC LEUK OF B-CELL TYPE 06/05/2018 FRANCISCO BOBAN N Ot D80.1 NONFAMILIAL HYPOGAMMAGLOBULINEMIA 06/05/2018 FRANCISCO BOBAN N Ot 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 06/05/2018 AMANDA SINGHAN N Ot E78.00 PURE HYPERCHOLESTEROLEMIA, UNSPECIFIED 06/05/2018 FRANCISCO BOBAN N Ot E87.5 HYPERKALEMIA 06/05/2018 AMANDA SINGHAN N Ot I12.9 HYPERTENSIVE CHRONIC KIDNEY DISEASE W ST 06/05/2018 AMANDA SINGHAN N Ot I25.10 ATHSCL HEART DISEASE OF [place] CORONARY 06/05/2018 FRANCISCO BOBAN N Ot M10.9 GOUT, UNSPECIFIED 06/05/2018 FRANCISCO, BOBAN N Ot N18.3 CHRONIC KIDNEY DISEASE, STAGE 3 (MODERAT 06/05/2018 FRANCISCO BOBAN N Ot Z79.4 PROPERTY SITE MANAGER (CURRENT) USE OF INSULIN 06/05/2018 FRANCISCO BOBAN N Ot Z79.899 OTHER [facility] (CURRENT) DRUG THERAPY 06/05/2018 FRANCISCO BOBAN N Ot Z85.528 PERSONAL HISTORY OF OTHER MALIGNANT NEOP 06/05/2018 FRANCISCO, BOBAN N Ot Z95.1 PRESENCE OF AORTOCORONARY BYPASS GRAFT 06/16/2018 MILAN SINGH Ot C91.10 CHRONIC LYMPHOCYTIC LEUK OF B-CELL TYPE 06/16/2018 GURMEET CROWE MD Ot E11.9 TYPE 2 DIABETES MELLITUS WITHOUT COMPLIC 06/16/2018 GURMEET CROWE MD Ot Z79.4 PROPERTY SITE MANAGER (CURRENT) USE OF INSULIN 06/16/2018 CARMELLA TYLERP Ot 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, UNSPECIFIED 06/16/2018 CARMELLA TYLER TRANSMISSION REPAIRER Ot D69.6 THROMBOCYTOPENIA, UNSPECIFIED 06/16/2018 CARMELLA TYLER TRANSMISSION REPAIRER Ot N18.3 CHRONIC KIDNEY DISEASE, STAGE 3 (MODERAT 06/16/2018 CARMELLA TYLERP Ot Z79.899 OTHER [facility] (CURRENT) DRUG THERAPY 06/16/2018 CARMELLA TYLERP Ot Z85.528 PERSONAL HISTORY OF OTHER MALIGNANT NEOP 06/16/2018 GURMEET CROWE MD Ot E11.9 TYPE 2 DIABETES MELLITUS WITHOUT COMPLIC 06/16/2018 GURMEET CROWE MD Ot Z79.4 PROPERTY SITE MANAGER (CURRENT) USE OF INSULIN 06/16/2018 MILAN SINGH Ot C91.10 CHRONIC LYMPHOCYTIC LEUK OF B-CELL TYPE 06/16/2018 GURMEET CROWE MD Ot 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 06/16/2018 GURMEET CROWE MD Ot M46.02 SPINAL ENTHESOPATHY, CERVICAL REGION 06/16/2018 GURMEET CROWE MD Ot M50.30 OTHER CERVICAL DISC DEGENERATION, UNSP C 06/16/2018 GURMEET CROWE MD R Ot R05 COUGH 06/16/2018 GURMEET CROWE MD Ot R05 COUGH 06/16/2018 GURMEET CROWE MD Ot R91.8 OTHER NONSPECIFIC ABNORMAL FINDING OF [place] 06/16/2018 MILAN SINGH Ot C91.10 CHRONIC LYMPHOCYTIC LEUK OF B-CELL TYPE 06/16/2018 MILAN SINGH Ot J90 PLEURAL EFFUSION, NOT ELSEWHERE CLASSIFI 06/16/2018 MILAN SINGH Ot R91.8 OTHER NONSPECIFIC ABNORMAL FINDING OF [place] 06/16/2018 MILAN SINGH Ot 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, UNSPECIFIED 06/16/2018 MILAN SINGH Ot C91.10 CHRONIC LYMPHOCYTIC LEUK OF B-CELL TYPE 06/16/2018 MILAN SINGH Ot D80.1 NONFAMILIAL HYPOGAMMAGLOBULINEMIA 06/16/2018 MILAN SINGH N Ot 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 06/16/2018 MILAN SINGH Ot E78.00 PURE HYPERCHOLESTEROLEMIA, UNSPECIFIED 06/16/2018 MILAN SINGH Ot E87.5 HYPERKALEMIA 06/16/2018 MILAN SINGH N Ot I12.9 HYPERTENSIVE CHRONIC KIDNEY DISEASE W ST 06/16/2018 MILAN SINGH N Ot I25.10 ATHSCL HEART DISEASE OF [place] CORONARY 06/16/2018 MILAN SINGH Ot M10.9 GOUT, UNSPECIFIED 06/16/2018 MILAN SINGH Ot N18.3 CHRONIC KIDNEY DISEASE, STAGE 3 (MODERAT 06/16/2018 MILAN SINGH Ot Z79.4 [facility] (CURRENT) USE OF INSULIN 06/16/2018 MILAN SINGH Ot Z79.899 OTHER PROPERTY SITE MANAGER (CURRENT) DRUG THERAPY 06/16/2018 MILAN SINGH Ot Z85.528 PERSONAL HISTORY OF OTHER MALIGNANT NEOP 06/16/2018 MILAN SINGH Ot Z95.1 PRESENCE OF AORTOCORONARY BYPASS GRAFT 07/11/2018 MILAN SINGH Ot 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, UNSPECIFIED 07/11/2018 MIALN SINGH Ot C91.10 CHRONIC LYMPHOCYTIC LEUK OF B-CELL TYPE 07/11/2018 MILAN SINGH Ot D80.1 NONFAMILIAL HYPOGAMMAGLOBULINEMIA 07/11/2018 MILAN SINGH N Ot 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 07/11/2018 MILAN SINGH N Ot E78.00 PURE HYPERCHOLESTEROLEMIA, UNSPECIFIED 07/11/2018 MILAN SINGH N Ot E87.5 HYPERKALEMIA 07/11/2018 MILAN SINGH N Ot I12.9 HYPERTENSIVE CHRONIC KIDNEY DISEASE W ST 07/11/2018 MILAN SINGH N Ot I25.10 ATHSCL HEART DISEASE OF [place] CORONARY 07/11/2018 MILAN SINGH N Ot M10.9 GOUT, UNSPECIFIED 07/11/2018 FRANCISCOMILAN ROSA N Ot N18.3 CHRONIC KIDNEY DISEASE, STAGE 3 (MODERAT 07/11/2018 MILAN SINGH N Ot Z79.4 PROPERTY SITE MANAGER (CURRENT) USE OF INSULIN 07/11/2018 MILAN SINGH N Ot Z79.899 OTHER [facility] (CURRENT) DRUG THERAPY 07/11/2018 MILAN SINGH N Ot Z85.528 PERSONAL HISTORY OF OTHER MALIGNANT NEOP 07/11/2018 MILAN SINGH N Ot Z95.1 PRESENCE OF AORTOCORONARY BYPASS GRAFT 07/12/2018 MILAN SINGH N Ot 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, UNSPECIFIED 07/12/2018 MILAN SINGH Ot C91.10 CHRONIC LYMPHOCYTIC LEUK OF B-CELL TYPE 07/12/2018 MILAN SINGH N Ot D80.1 NONFAMILIAL HYPOGAMMAGLOBULINEMIA 07/12/2018 MILAN SINGH N Ot 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 07/12/2018 MILAN SINGH N Ot E78.00 PURE HYPERCHOLESTEROLEMIA, UNSPECIFIED 07/12/2018 MILAN SINGH N Ot E87.5 HYPERKALEMIA 07/12/2018 MILAN SINGH Ot I12.9 HYPERTENSIVE CHRONIC KIDNEY DISEASE W ST 07/12/2018 MILAN SINGH N Ot I25.10 ATHSCL HEART DISEASE OF [place] CORONARY 07/12/2018 MILAN SINGH Ot M10.9 GOUT, UNSPECIFIED 07/12/2018 MILAN SINGH N Ot N18.3 CHRONIC KIDNEY DISEASE, STAGE 3 (MODERAT 07/12/2018 MILAN SINGH N Ot Z79.4 [facility] (CURRENT) USE OF INSULIN 07/12/2018 MILAN SINGH N Ot Z79.899 OTHER PROPERTY SITE MANAGER (CURRENT) DRUG THERAPY 07/12/2018 MILAN SINGH N Ot Z85.528 PERSONAL HISTORY OF OTHER MALIGNANT NEOP 07/12/2018 MILAN SINGH N Ot Z95.1 PRESENCE OF AORTOCORONARY BYPASS GRAFT 08/30/2018 MILAN SINGH N Ot 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, UNSPECIFIED 08/30/2018 FRANCISCO, BOBAN N Ot C91.10 CHRONIC LYMPHOCYTIC LEUK OF B-CELL TYPE 08/30/2018 FRANCISCOMILAN Ot D80.1 NONFAMILIAL HYPOGAMMAGLOBULINEMIA 08/30/2018 MILAN SINGH Ot 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 08/30/2018 FRANCISCOMILAN Ot E78.00 PURE HYPERCHOLESTEROLEMIA, UNSPECIFIED 08/30/2018 MILAN SINGH Ot E87.5 HYPERKALEMIA 08/30/2018 MLIAN SINGH Ot I12.9 HYPERTENSIVE CHRONIC KIDNEY DISEASE W ST 08/30/2018 MILAN SINGH N Ot I25.10 ATHSCL HEART DISEASE OF [place] CORONARY 08/30/2018 MILAN SINGH Ot M10.9 GOUT, UNSPECIFIED 08/30/2018 MILAN SINGH Ot N18.3 CHRONIC KIDNEY DISEASE, STAGE 3 (MODERAT 08/30/2018 MILAN SINGH Ot Z79.4 [facility] (CURRENT) USE OF INSULIN 08/30/2018 MILAN SINGH Ot Z79.899 OTHER PROPERTY SITE MANAGER (CURRENT) DRUG THERAPY 08/30/2018 MILAN SINGH Ot Z85.528 PERSONAL HISTORY OF OTHER MALIGNANT NEOP 08/30/2018 MILAN SINGH Ot Z95.1 PRESENCE OF AORTOCORONARY BYPASS GRAFT 08/31/2018 IMLAN SINGH Ot 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, UNSPECIFIED 08/31/2018 MILAN SINGH Ot C91.10 CHRONIC LYMPHOCYTIC LEUK OF B-CELL TYPE 08/31/2018 MILAN SINGH Ot D80.1 NONFAMILIAL HYPOGAMMAGLOBULINEMIA 08/31/2018 MILAN SINGH Ot 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 08/31/2018 MILAN SINGH Ot E78.00 PURE HYPERCHOLESTEROLEMIA, UNSPECIFIED 08/31/2018 MILAN SINGH Ot E87.5 HYPERKALEMIA 08/31/2018 MILAN SINGH Ot I12.9 HYPERTENSIVE CHRONIC KIDNEY DISEASE W ST 08/31/2018 MILAN SINGH N Ot I25.10 ATHSCL HEART DISEASE OF [place] CORONARY 08/31/2018 MILAN SINGH Ot M10.9 GOUT, UNSPECIFIED 08/31/2018 FRANCISCO, BOBAN N Ot N18.3 CHRONIC KIDNEY DISEASE, STAGE 3 (MODERAT 08/31/2018 MILAN SINGH N Ot Z79.4 [facility] (CURRENT) USE OF INSULIN 08/31/2018 MILAN SINGH N Ot Z79.899 OTHER PROPERTY SITE MANAGER (CURRENT) DRUG THERAPY 08/31/2018 MILAN SINGH N Ot Z85.528 PERSONAL HISTORY OF OTHER MALIGNANT NEOP 08/31/2018 MILAN SINGH Jackie Ot Z95.1 PRESENCE OF AORTOCORONARY BYPASS GRAFT 09/22/2018 MILAN SINGH Jackie Ot C91.10 CHRONIC LYMPHOCYTIC LEUK OF B-CELL TYPE 09/22/2018 GURMEET CROWE MD R Ot E11.9 TYPE 2 DIABETES MELLITUS WITHOUT COMPLIC 09/22/2018 GURMEET CROWE MD Ot Z79.4 PROPERTY SITE MANAGER (CURRENT) USE OF INSULIN 09/22/2018 CARMELLA TYLER TRANSMISSION REPAIRER Ot 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, UNSPECIFIED 09/22/2018 CARMELLA TYLER TRANSMISSION REPAIRER Ot D69.6 THROMBOCYTOPENIA, UNSPECIFIED 09/22/2018 CARMELLA TYLER TRANSMISSION REPAIRER Ot N18.3 CHRONIC KIDNEY DISEASE, STAGE 3 (MODERAT 09/22/2018 CARMELLA TYLERP Ot Z79.899 OTHER [facility] (CURRENT) DRUG THERAPY 09/22/2018 CARMELLA TYLER TRANSMISSION REPAIRER Ot Z85.528 PERSONAL HISTORY OF OTHER MALIGNANT NEOP 09/22/2018 GURMEET CROWE MD R Ot E11.9 TYPE 2 DIABETES MELLITUS WITHOUT COMPLIC 09/22/2018 GURMEET CROWE MD R Ot Z79.4 PROPERTY SITE MANAGER (CURRENT) USE OF INSULIN 09/22/2018 FRANCISCO MILAN Mejia Ot C91.10 CHRONIC LYMPHOCYTIC LEUK OF B-CELL TYPE 09/22/2018 GURMEET CROWE MD R Ot 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 09/22/2018 GURMEET CROWE MD R Ot M46.02 SPINAL ENTHESOPATHY, CERVICAL REGION 09/22/2018 GURMEET CROWE MD R Ot M50.30 OTHER CERVICAL DISC DEGENERATION, UNSP C 09/22/2018 GURMEET CROWE MD R Ot R05 COUGH 09/22/2018 GURMEET CROWE MD R Ot R05 COUGH 09/22/2018 AMRITA CRABTREE, GURMEET Brown Ot R91.8 OTHER NONSPECIFIC ABNORMAL FINDING OF [place] 09/22/2018 FRANCISCO, MILAN Mejia Ot C91.10 CHRONIC LYMPHOCYTIC LEUK OF B-CELL TYPE 09/22/2018 FRANCISCO MILAN Mejia Ot J90 PLEURAL EFFUSION, NOT ELSEWHERE CLASSIFI 09/22/2018 FRANCISCO MILAN Mejia Ot R91.8 OTHER NONSPECIFIC ABNORMAL FINDING OF [place] 09/22/2018 FRANCISCO MILAN Mejia Ot C91.10 CHRONIC LYMPHOCYTIC LEUK OF B-CELL TYPE 09/22/2018 FRANCISCO MILAN Mejia Ot D80.1 NONFAMILIAL HYPOGAMMAGLOBULINEMIA 09/22/2018 FRANCISCOMILAN N Ot 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 09/22/2018 FRANCISCOMILAN Ot E78.00 PURE HYPERCHOLESTEROLEMIA, UNSPECIFIED 09/22/2018 FRANCISCOMILAN N Ot E87.5 HYPERKALEMIA 09/22/2018 FRANCISCOMILAN Ot I12.9 HYPERTENSIVE CHRONIC KIDNEY DISEASE W ST 09/22/2018 FRANCISCOMILAN Ot I25.10 ATHSCL HEART DISEASE OF [place] CORONARY 09/22/2018 FRANCISCOMILAN Ot M10.9 GOUT, UNSPECIFIED 09/22/2018 FRANCISCOMILAN Ot N18.3 CHRONIC KIDNEY DISEASE, STAGE 3 (MODERAT 09/22/2018 FRANCISCOMILAN N Ot Z79.4 [facility] (CURRENT) USE OF INSULIN 09/22/2018 FRANCISCOMILAN Ot Z79.899 OTHER PROPERTY SITE MANAGER (CURRENT) DRUG THERAPY 09/22/2018 FRANCISCOMILAN Ot Z85.528 PERSONAL HISTORY OF OTHER MALIGNANT NEOP 09/22/2018 FRANCISCOMILAN Ot Z95.1 PRESENCE OF AORTOCORONARY BYPASS GRAFT 09/28/2018 MILAN SINGH Ot C91.10 CHRONIC LYMPHOCYTIC LEUK OF B-CELL TYPE 09/28/2018 AMRITA CRABTREE, GURMEET R Ot E11.9 TYPE 2 DIABETES MELLITUS WITHOUT COMPLIC 09/28/2018 AMRITA CRABTREE, GURMEET R Ot Z79.4 PROPERTY SITE MANAGER (CURRENT) USE OF INSULIN 09/28/2018 CARMELLA TYLERP Ot 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, UNSPECIFIED 09/28/2018 TYLER, HILAH S TRANSMISSION REPAIRER Ot D69.6 THROMBOCYTOPENIA, UNSPECIFIED 09/28/2018 CARMELLA TYLER TRANSMISSION REPAIRER Ot N18.3 CHRONIC KIDNEY DISEASE, STAGE 3 (MODERAT 09/28/2018 CARMELLA TYLER TRANSMISSION REPAIRER Ot Z79.899 OTHER PROPERTY SITE MANAGER (CURRENT) DRUG THERAPY 09/28/2018 CARMELLA TYLER TRANSMISSION REPAIRER Ot Z85.528 PERSONAL HISTORY OF OTHER MALIGNANT NEOP 09/28/2018 AMRITA CRABTREE, GURMEET R Ot E11.9 TYPE 2 DIABETES MELLITUS WITHOUT COMPLIC 09/28/2018 AMRITA CRABTREE, GURMEET R Ot Z79.4 [facility] (CURRENT) USE OF INSULIN 09/28/2018 MILAN SINGH Ot C91.10 CHRONIC LYMPHOCYTIC LEUK OF B-CELL TYPE 09/28/2018 GURMEET CROWE MD R Ot 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 09/28/2018 GURMEET CROWE MD R Ot M46.02 SPINAL ENTHESOPATHY, CERVICAL REGION 09/28/2018 GURMEET CROWE MD R Ot M50.30 OTHER CERVICAL DISC DEGENERATION, UNSP C 09/28/2018 GURMEET CROWE MD R Ot R05 COUGH 09/28/2018 GURMEET CROWE MD R Ot R05 COUGH 09/28/2018 GURMEET CROWE MD R Ot R91.8 OTHER NONSPECIFIC ABNORMAL FINDING OF [place] 09/28/2018 MILAN SINGH Ot C91.10 CHRONIC LYMPHOCYTIC LEUK OF B-CELL TYPE 09/28/2018 MILAN SINGH Ot J90 PLEURAL EFFUSION, NOT ELSEWHERE CLASSIFI 09/28/2018 MILAN SINGH Ot R91.8 OTHER NONSPECIFIC ABNORMAL FINDING OF [place] 09/28/2018 MILAN SINGH Ot C91.10 CHRONIC LYMPHOCYTIC LEUK OF B-CELL TYPE 09/28/2018 MILAN SINGH Ot D80.1 NONFAMILIAL HYPOGAMMAGLOBULINEMIA 09/28/2018 MILAN SINGH Ot 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 09/28/2018 MILAN SINGH Ot E78.00 PURE HYPERCHOLESTEROLEMIA, UNSPECIFIED 09/28/2018 MILAN SINGH Ot E87.5 HYPERKALEMIA 09/28/2018 MILAN SINGH Ot I12.9 HYPERTENSIVE CHRONIC KIDNEY DISEASE W ST 09/28/2018 FRANCISCO MILAN N Ot I25.10 ATHSCL HEART DISEASE OF [place] CORONARY 09/28/2018 FRANCISCO MILAN N Ot M10.9 GOUT, UNSPECIFIED 09/28/2018 FRANCISCO MILAN N Ot N18.3 CHRONIC KIDNEY DISEASE, STAGE 3 (MODERAT 09/28/2018 FRANCISCOMILAN N Ot Z79.4 PROPERTY SITE MANAGER (CURRENT) USE OF INSULIN 09/28/2018 FRANCISCOMILAN N Ot Z79.899 OTHER PROPERTY SITE MANAGER (CURRENT) DRUG THERAPY 09/28/2018 FRANCISCOMILAN N Ot Z85.528 PERSONAL HISTORY OF OTHER MALIGNANT NEOP 09/28/2018 FRANCISCOMILAN N Ot Z95.1 PRESENCE OF AORTOCORONARY BYPASS GRAFT 09/29/2018 MILAN SINGH Ot C91.10 CHRONIC LYMPHOCYTIC LEUK OF B-CELL TYPE 09/29/2018 FRANCISCOMILAN N Ot D80.1 NONFAMILIAL HYPOGAMMAGLOBULINEMIA 09/29/2018 MILAN SINGH N Ot 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 09/29/2018 FRANCISCOMILAN N Ot E78.00 PURE HYPERCHOLESTEROLEMIA, UNSPECIFIED 09/29/2018 FRANCISCOMILAN N Ot E87.5 HYPERKALEMIA 09/29/2018 FRANCISCOMILAN N Ot I12.9 HYPERTENSIVE CHRONIC KIDNEY DISEASE W ST 09/29/2018 FRANCISCOMILAN N Ot I25.10 ATHSCL HEART DISEASE OF [place] CORONARY 09/29/2018 FRANCISCOMILAN Ot M10.9 GOUT, UNSPECIFIED 09/29/2018 FRANCISCOMILAN N Ot N18.3 CHRONIC KIDNEY DISEASE, STAGE 3 (MODERAT 09/29/2018 FRANCISCOMILAN N Ot Z79.4 PROPERTY SITE MANAGER (CURRENT) USE OF INSULIN 09/29/2018 FRANCISCOMILAN N Ot Z79.899 OTHER [facility] (CURRENT) DRUG THERAPY 09/29/2018 MILAN SINGH N Ot Z85.528 PERSONAL HISTORY OF OTHER MALIGNANT NEOP 09/29/2018 MILAN SINGH N Ot Z95.1 PRESENCE OF AORTOCORONARY BYPASS GRAFT 10/02/2018 CARMELLA TYLERP Ot C91.10 CHRONIC LYMPHOCYTIC LEUK OF B-CELL TYPE 10/02/2018 CARMELLA TYLER TRANSMISSION REPAIRER Ot J90 PLEURAL EFFUSION, NOT ELSEWHERE CLASSIFI 10/02/2018 JAYSON JEDTENZIN [place] TRANSMISSION REPAIRER Ot K80.20 CALCULUS OF GALLBLADDER W/O CHOLECYSTITI 10/02/2018 CARMELLA TYLER TRANSMISSION REPAIRER Ot N18.3 CHRONIC KIDNEY DISEASE, STAGE 3 (MODERAT 10/02/2018 JED TYLERTENZIN [place] TRANSMISSION REPAIRER Ot R91.8 OTHER NONSPECIFIC ABNORMAL FINDING OF [place] 10/05/2018 MILAN SINGH Ot C91.10 CHRONIC LYMPHOCYTIC LEUK OF B-CELL TYPE 10/05/2018 MILAN SINGH Ot D80.1 NONFAMILIAL HYPOGAMMAGLOBULINEMIA 10/05/2018 MILAN SINGH Ot 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 10/05/2018 MILAN SINGH Ot E78.00 PURE HYPERCHOLESTEROLEMIA, UNSPECIFIED 10/05/2018 MILAN SINGH Ot E87.5 HYPERKALEMIA 10/05/2018 MILAN SINGH Ot I12.9 HYPERTENSIVE CHRONIC KIDNEY DISEASE W ST 10/05/2018 MILAN SINGH Ot I25.10 ATHSCL HEART DISEASE OF [place] CORONARY 10/05/2018 MILAN SINGH Ot M10.9 GOUT, UNSPECIFIED 10/05/2018 MILAN SINGH Ot N18.3 CHRONIC KIDNEY DISEASE, STAGE 3 (MODERAT 10/05/2018 MILAN SINGH Ot Z79.4 PROPERTY SITE MANAGER (CURRENT) USE OF INSULIN 10/05/2018 MILAN SINGH Ot Z79.899 OTHER [facility] (CURRENT) DRUG THERAPY 10/05/2018 MILAN SINGH Ot Z85.528 PERSONAL HISTORY OF OTHER MALIGNANT NEOP 10/05/2018 MILAN SINGH Ot Z95.1 PRESENCE OF AORTOCORONARY BYPASS GRAFT 10/09/2018 ZARINA CRABTREE, ALFONZO Dominguez Ot M70.21 OLECRANON BURSITIS, RIGHT ELBOW 10/09/2018 ZARINA CRABTREE, ALFONZO Dominguez Ot Z01.812 ENCOUNTER FOR PREPROCEDURAL LABORATORY E 10/09/2018 ALFONZO SRINIVASAN MD Ot Z11.2 ENCOUNTER FOR SCREENING FOR OTHER BACTER 10/09/2018 ALFONZO SRINIVASAN MD Ot M70.21 OLECRANON BURSITIS, RIGHT ELBOW 10/09/2018 ALFONZO SRINIVASAN MD, Ot Z01.812 ENCOUNTER FOR PREPROCEDURAL LABORATORY E 10/09/2018 ALFONZO SRINIVASAN MD, Ot Z11.2 ENCOUNTER FOR SCREENING FOR OTHER BACTER Procedures There is no data. Results Test Result Range Hemoglobin A1c - 11/10/16 08:17 Hemoglobin A1c 6.7 % 4.5-6.2 Complete blood count (CBC) with automated white blood cell (WBC) differential - 02/20/17 11:42 Blood leukocytes automated count (number/volume) 47.4 10*3/uL 4.3-11.0 Blood erythrocytes automated count (number/volume) 3.99 10*6/uL 4.35-5.85 Venous blood hemoglobin measurement (mass/volume) 11.4 g/dL 13.3-17.7 Blood hematocrit (volume fraction) 36 % 40-54 Automated erythrocyte mean corpuscular volume 91 [foz_us] 80-99 Automated erythrocyte mean corpuscular hemoglobin (mass per erythrocyte) 29 pg 25-34 Automated erythrocyte mean corpuscular hemoglobin concentration measurement ( mass/volume) 32 g/dL 32-36 Automated erythrocyte distribution width ratio 15.5 % 10.0-14.5 Automated blood platelet count (count/volume) 84 10*3/uL 130-400 Automated blood platelet mean volume measurement 11.0 [foz_us] 7.4-10.4 Automated blood neutrophils/100 leukocytes 8 % 42-75 Automated blood lymphocytes/100 leukocytes 87 % 12-44 Blood monocytes/100 leukocytes 4 % 0-12 Automated blood eosinophils/100 leukocytes 1 % 0-10 Automated blood basophils/100 leukocytes 0 % 0-10 Blood neutrophils automated count (number/volume) 3.5 10*3 1.8-7.8 Blood lymphocytes automated count (number/volume) 41.4 10*3 1.0-4.0 Blood monocytes automated count (number/volume) 1.9 10*3 0.0-1.0 Automated eosinophil count 0.4 10*3/uL 0.0-0.3 Automated blood basophil count (count/volume) 0.1 10*3/uL 0.0-0.1 Fibrin D-dimer FEU measurement in platelet poor plasma (mass/volume) - 11:42 Fibrin D-dimer FEU measurement in platelet poor plasma (mass/volume) 0.49 ug/mL 0.00-0.49 Comprehensive metabolic panel - 02/20/17 11:42 Serum or plasma sodium measurement (moles/volume) 138 mmol/L 135-145 Serum or plasma potassium measurement (moles/volume) 4.8 mmol/L 3.6-5.0 Serum or plasma chloride measurement (moles/volume) 107 mmol/L 98-107 Carbon dioxide 22 mmol/L 21-32 Serum or plasma anion gap determination (moles/volume) 9 mmol/L 5-14 Serum or plasma urea nitrogen measurement (mass/volume) 35 mg/dL 7-18 Serum or plasma creatinine measurement (mass/volume) 1.70 mg/dL 0.60-1.30 Serum or plasma urea nitrogen/creatinine mass ratio 21 NRG Serum or plasma creatinine measurement with calculation of estimated glomerular filtration rate 39 NRG Serum or plasma glucose measurement (mass/volume) 47 mg/dL 70-105 Serum or plasma calcium measurement (mass/volume) 8.8 mg/dL 8.5-10.1 Serum or plasma total bilirubin measurement (mass/volume) 0.6 mg/dL 0.1-1.0 Serum or plasma alkaline phosphatase measurement (enzymatic activity/volume) 53 U/L 40-136 Serum or plasma aspartate aminotransferase measurement (enzymatic activity/ volume) 28 U/L 5-34 Serum or plasma alanine aminotransferase measurement (enzymatic activity/volume ) 15 U/L 0-55 Serum or plasma protein measurement (mass/volume) 6.4 g/dL 6.4-8.2 Serum or plasma albumin measurement (mass/volume) 3.8 g/dL 3.2-4.5 Serum or plasma lithium measurement (moles/volume) - 02/20/17 11:42 BNP level 719.9 pg/mL <100.0 Capillary blood glucose measurement by glucometer (mass/volume) - 02/20/17 12: 08 Capillary blood glucose measurement by glucometer (mass/volume) 48 mg/dL 70-110 Capillary blood glucose measurement by glucometer (mass/volume) - 02/20/17 12: 58 Capillary blood glucose measurement by glucometer (mass/volume) 131 mg/dL 70-110 Methicillin resistant Staphylococcus aureus (MRSA) screening culture - 11:02 Methicillin resistant Staphylococcus aureus (MRSA) screening culture NEG NRG Complete blood count (CBC) with automated white blood cell (WBC) differential - 10/06/18 11:05 Blood leukocytes automated count (number/volume) 35.2 10*3/uL 4.3-11.0 Blood erythrocytes automated count (number/volume) 4.08 10*6/uL 4.35-5.85 Venous blood hemoglobin measurement (mass/volume) 11.0 g/dL 13.3-17.7 Blood hematocrit (volume fraction) 35 % 40-54 Automated erythrocyte mean corpuscular volume 85 [foz_us] 80-99 Automated erythrocyte mean corpuscular hemoglobin (mass per erythrocyte) 27 pg 25-34 Automated erythrocyte mean corpuscular hemoglobin concentration measurement ( mass/volume) 32 g/dL 32-36 Automated erythrocyte distribution width ratio 15.6 % 10.0-14.5 Automated blood platelet count (count/volume) 82 10*3/uL 130-400 Automated blood platelet mean volume measurement 11.5 [foz_us] 7.4-10.4 Automated blood neutrophils/100 leukocytes 7 % 42-75 Automated blood lymphocytes/100 leukocytes 87 % 12-44 Blood monocytes/100 leukocytes 4 % 0-12 Automated blood eosinophils/100 leukocytes 1 % 0-10 Automated blood basophils/100 leukocytes 0 % 0-10 Blood neutrophils automated count (number/volume) 2.5 10*3 1.8-7.8 Blood lymphocytes automated count (number/volume) 30.8 10*3 1.0-4.0 Blood monocytes automated count (number/volume) 1.5 10*3 0.0-1.0 Automated eosinophil count 0.4 10*3/uL 0.0-0.3 Automated blood basophil count (count/volume) 0.1 10*3/uL 0.0-0.1 Whole blood basic metabolic panel - 10/06/18 11:05 Serum or plasma sodium measurement (moles/volume) 135 mmol/L 135-145 Serum or plasma potassium measurement (moles/volume) 5.0 mmol/L 3.6-5.0 Serum or plasma chloride measurement (moles/volume) 105 mmol/L 98-107 Carbon dioxide 21 mmol/L 21-32 Serum or plasma anion gap determination (moles/volume) 9 mmol/L 5-14 Serum or plasma urea nitrogen measurement (mass/volume) 40 mg/dL 7-18 Serum or plasma creatinine measurement (mass/volume) 1.54 mg/dL 0.60-1.30 Serum or plasma urea nitrogen/creatinine mass ratio 26 NRG Serum or plasma creatinine measurement with calculation of estimated glomerular filtration rate 44 NRG Serum or plasma glucose measurement (mass/volume) 141 mg/dL 70-105 Serum or plasma calcium measurement (mass/volume) 8.6 mg/dL 8.5-10.1 Blood manual differential performed detection - 10/06/18 11:05 Blood monocytes/100 leukocytes 2 % NRG Manual blood segmented neutrophils/100 leukocytes 10 % NRG Blood band neutrophils/100 leukocytes 0 % NRG Manual blood lymphocytes/100 leukocytes 87 % NRG Manual eosinophils/100 leukocytes in nose 1 % NRG Manual blood basophils/100 leukocytes 0 % NRG Blood anisocytosis detection by light microscopy SLIGHT NRG Blood ovalocytes detection by light microscopy SLIGHT NRG Encounters ACCT No. Visit Date/Time Discharge Status Pt. Type Provider Facility Loc./Unit Complaint [id number] 10/06/2018 10:37:00 10/06/2018 11:15:00 DIS Outpatient ZARINA CRABTREE, ALFONZO Dominguez [facility] PREOP RIGHT OLEKINN VENANCIOTIS [id number] 09/29/2018 09:27:00 09/29/2018 23:59:59 CLS Outpatient CARMELLA TYLER [facility] RAD CLL,CHRONIC KIDNEY DISEASE STAGE 3 [id number] 08/30/2018 08:33:00 08/30/2018 23:59:59 CLS Outpatient MILAN SINGH [facility] ONC [id number] 05/30/2018 12:49:00 07/11/2018 00:01:00 DIS Outpatient MILAN SINGH [facility] ONC [id number] 02/28/2018 14:38:00 03/10/2018 00:01:00 DIS Outpatient MILAN SINGH [facility] ONC [id number] 03/01/2018 09:00:00 03/02/2018 10:55:00 DIS Inpatient NIKO CRABTREE, KENN Rios [facility] 4TH HYPERKALEMIA,CLL,CHRONIS KIDNEY DISEASE [id number] 11/29/2017 08:49:00 02/27/2018 00:01:00 DIS Outpatient MILAN SINGH N [facility] ONC [id number] 11/21/2017 09:47:00 11/28/2017 00:01:00 DIS Outpatient MILAN SINGH N [facility] ONC [id number] 11/21/2017 10:04:00 11/21/2017 23:59:59 CLS Outpatient MILAN SINGH N [facility] RAD C91.10 CLL [id number] 09/05/2017 08:35:00 09/05/2017 23:59:59 CLS Outpatient GURMEET CROWE MD [facility] RAD R05 [id number] 07/12/2017 10:37:00 08/30/2017 08:57:00 DIS Outpatient PRIYANK CASSIDY MD [facility] ONC [id number] 08/22/2017 10:54:00 08/22/2017 23:59:59 CLS Outpatient GURMEET CROWE MD [facility] RAD R05 [id number] 02/24/2017 09:33:00 04/09/2017 00:01:00 DIS Outpatient MILAN SINGH Jackie [facility] ONC [id number] 02/20/2017 10:21:00 02/20/2017 14:27:00 DIS Emergency WINSOME CUEVAS [facility] ER BILAT LEG/ABD WATER RETENTION [id number] 11/10/2016 08:10:00 02/08/2017 00:01:00 DIS Outpatient MILAN SINGH N [facility] ONC [id number] 11/16/2016 08:25:00 11/16/2016 23:59:59 CLS Outpatient MILAN SINGH N [facility] RAD C91.10 [id number] 11/10/2016 08:14:00 11/10/2016 23:59:59 CLS Outpatient GURMEET CROWE MD [facility] LAB [id number] 07/27/2016 14:15:00 10/25/2016 00:01:00 DIS Outpatient MILAN SINGH [facility] ONC [id number] 07/21/2016 10:22:00 07/21/2016 00:01:00 DIS Outpatient MILAN SINGH [facility] ONC [id number] 01/22/2016 09:17:00 03/02/2016 00:01:00 DIS Outpatient MILAN SINGH [facility] ONC [id number] 01/22/2016 09:15:00 01/22/2016 23:59:59 CLS Outpatient TYLER CARMELLA Mayuri [employer] [facility] ONC [id number] 10/23/2015 09:55:00 10/29/2015 00:01:00 DIS Outpatient MILAN SINGH [facility] ONC [id number] 10/16/2015 13:19:00 10/16/2015 23:59:59 CLS Outpatient MILAN SINGH [facility] RAD CLL [id number] 10/16/2015 13:11:00 10/16/2015 23:59:59 CLS Outpatient AMRITA CRABTREE, GURMEET Brown [facility] LAB [id number] 10/11/2018 10:30:00 PEN Shayla SRINIVASAN MD, ALFONZO Dominguez [facility] RIGHT TERRENCE SOMMERS [id number] 10/31/2010 19:22:00 Document Registration [id number] 10/27/2010 11:58:00 Document Registration [id number] 10/25/2010 14:52:00 Document Registration [id number] 10/23/2010 19:06:00 Document Registration [id number] 10/22/2010 17:28:00 Document Registration
[2018-10-11] MEDS ORDERED: LACTATED RINGERS 1,000 ML IV PRN (08:33)
[2018-10-11 08:35] VITALS: BP 159/83
[2018-10-11] MEDS ORDERED: ceFAZolin INJECTION 1,000 MG in WATER (STERILE) FOR INJECTION 10 ML IV ONE (08:45)
--- NOTE | 2018-10-11 09:16 | Progress Note-Pre Operative ---
Pre-Operative Progress Note H&P Reviewed The H&P was reviewed, patient examined and no changes noted. Date Seen by Provider: Oct 11, 2018 Time Seen by Provider: 09:15 Date H&P Reviewed: Oct 11, 2018 Time H&P Reviewed: 09:15 Pre-Operative Diagnosis: right olecranon bursitis and osteophyte ALFONZO SRINIVASAN MD Oct 11, 2018 09:16
--- NOTE | 2018-10-11 09:17 | Progress Note-Post Operative ---
Post-Operative Progess Note Surgeon (s)/Regional Account Executive (s) Surgeon ALFONZO SRINIVASAN MD Regional Account Executive: Mango Skelton Pre-Operative Diagnosis right olecranon bursitis and osteophyte Post-Operative Diagnosis right olecranon bursitis and osteophyte Procedure & Operative Findings Date of Procedure 10/11/18 Procedure Performed/Findings right olecranon bursectomy and osteophyte excision Anesthesia Type GETA Estimated Blood Loss Estimated blood loss (mL): minimal Specimens/Packing Specimens Removed bursa Packing: none ALFONZO SRINIVASAN MD Oct 11, 2018 09:17
[2018-10-11] MEDS ORDERED: LIDOCAINE PF 2% 5 ML (XYLOCAINE) VIAL ONE (09:27)
[2018-10-11] MEDS ORDERED: proPOfol 200 MG/20 ML (DIPRIVAN) VIAL IV ONE (09:27)
[2018-10-11] MEDS ORDERED: fentaNYL INJECTION 100 MCG/2 ML AMP ONE (09:28)
[2018-10-11] MEDS ORDERED: ONDANSETRON 4 MG/2 ML (SDV) Z0FRAN ONE (09:28)
[2018-10-11] MEDS ORDERED: SEVOFLURANE (ULTANE) 15 ML INHAL SOLN ONE ×3 (09:29→11:12)
[2018-10-11] MEDS ORDERED: oxyCODONE/APAP 5/325MG (PERCOCET 5) TABLET PO PRN (09:30)
[2018-10-11] MEDS ORDERED: NS IV 500 ML 500 ML IV SCH (09:45)
[2018-10-11] MEDS ORDERED: BUPIVACAINE 0.25% 30 ML (SENSORCAINE) VIAL ONE (09:47)
[2018-10-11] MEDS ORDERED: morphine PF (DURAMORPH) 10 MG/10 ML AMP ONE (09:47)
[2018-10-11] MEDS ORDERED: morphine INJ 10 MG/ML 1ML (SYR OR VIAL) IVP ONE (11:30)
[2018-10-11] MEDS ORDERED: ONDANSETRON 4 MG/2 ML (SDV) Z0FRAN IVP PRN (11:30)
--- NOTE | 2018-10-11 12:02 | Anesthesia-General Post-Op ---
General Patient Condition Mental Status/LOC: Same as Preop Cardiovascular: Satisfactory Nausea/Vomiting: Absent Respiratory: Satisfactory Pain: Controlled Complications: Absent Post Op Complications Complications None Follow Up Care/Instructions Patient Instructions None needed. Anesthesia/Patient Condition Patient Condition Patient is doing well, no complaints, stable vital signs, no apparent adverse anesthesia problems. No complications reported per nursing. MARLIN SULLIVAN CRNA Oct 11, 2018 12:02
[2018-10-11 12:10] VITALS: BP 132/66
[2018-10-11 12:40] VITALS: BP 134/65
[2018-10-11] MEDS ORDERED: OXYC-471 PO (12:48)
[2018-10-11 13:10] VITALS: BP 137/65
[2018-10-11 13:11] VITALS: BP 137/65
--- NOTE | 2018-10-11 14:51 | OPERATIVE REPORT ---
DATE OF SERVICE: PREOPERATIVE DIAGNOSES: 1. Right olecranon bursitis. 2. Right olecranon osteophyte. POSTOPERATIVE DIAGNOSES: 1. Right olecranon bursitis. 2. Right olecranon osteophyte. PROCEDURES: 1. Right elbow olecranon bursectomy. 2. Right elbow olecranon osteophyte excision. SURGEON: Milan Srinivasan MD CARTON LINER: CHON Metcalf, who assisted throughout the procedure and closed the incision. ANESTHESIA: General endotracheal by Adenike Landon CRNA. TOURNIQUET TIME: 21 minutes at 250 mmHg. ESTIMATED BLOOD LOSS: Minimal. DRAINS: None. COMPLICATIONS: None. PATHOLOGY: Specimen was sent. The patient was transferred to the recovery room awake and stable condition. STATEMENT OF MEDICAL NECESSITY: The patient is a 78-year-old gentleman with a 30-year history of right elbow swelling. He had findings consistent with olecranon bursa with an osteophyte noted on x-ray. He reported pain and loss of function in his elbow. Because of this and therefore elected to proceed with surgical excision. DESCRIPTION OF PROCEDURE: After risks and benefits of procedure were discussed and questions were answered, informed consent was signed and placed on chart, the operative site was confirmed in the preoperative holding area initialed by the surgeon. The patient was then transported to the operating room and after adequate levels of general endotracheal anesthetic were obtained, a timeout was called confirming the operative site. Right upper extremity was prepped and draped in the usual sterile fashion with the arm elevated and tourniquet was inflated to 250 mmHg. A curvilinear incision was made over the lateral aspect of the mass and underlying soft tissues were carefully dissected. Findings were consistent with olecranon bursitis. However, the substance of the bursa appeared to be more of a gout type appearance. This was excised in total. No necrotic tissue was noted. Hemostasis was obtained with cautery. The tourniquet was deflated for a total time of 21 minutes. Pressure was used for further hemostasis as was cautery. The wound was copiously irrigated. The bursa was sent for pathologic examination. A 3-0 Vicryl was used to reapproximate subcutaneous tissue and skin was closed with 4-0 nylon vertical mattress interrupted fashion. Soft dressing was applied and the patient was transferred to the recovery room awake and in stable condition. ADDENDUM: After the bursa had been resected, the prominence of the osteophyte was excised with a rongeur and smoothed with a rasp. Job ID: [id number] DocumentID: [id number] Dictated Date: 10/11/2018 11:09:57 Application Coordinator Date: 10/11/2018 14:50:36 Dictated By: MILAN SRINIVASAN MD
== END 2018-10-11 13:11 | disposition home or self-care (01) ==
LOC: SDC 08:22
PROVIDERS: ATTEND Orthopaedic Surgery
DX: M70.21 Olecranon bursitis, right elbow (principal); M25.721 Osteophyte, right elbow; E11.9 Type 2 diabetes mellitus without complications; I25.10 Atherosclerotic heart disease of native coronary artery without angina pectoris; E78.5 Hyperlipidemia, unspecified; I12.9 Hypertensive chronic kidney disease with stage 1 through stage 4 chronic kidney disease, or unspecified chronic kidney disease; N18.3 Chronic kidney disease, stage 3 (moderate); C91.10 Chronic lymphocytic leukemia of B-cell type not having achieved remission; Z85.528 Personal history of other malignant neoplasm of kidney; Z90.5 Acquired absence of kidney; Z95.1 Presence of aortocoronary bypass graft; Z79.4 Long term (current) use of insulin; Z79.899 Other long term (current) drug therapy; Z88.5 Allergy status to narcotic agent
CPT/HCPCS: 82962

== ENCOUNTER 2019-02-20 13:04 | Outpatient (RCR) | payer MEDICARE, BC ==
[2018-11-29 09:34] LABS: BASOPHILS # (AUTO) 0.1 10^3/uL (0.0-0.1); BASOPHILS % (AUTO) 0 % (0-10); EOSINOPHILS # (AUTO) 0.4 10^3/uL (0.0-0.3); EOSINOPHILS % (AUTO) 1 % (0-10); HEMATOCRIT 32 % (40-54); HEMOGLOBIN 10.2 G/DL (13.3-17.7); LYMPHOCYTES # (AUTO) 34.4 X 10^3 (1.0-4.0); LYMPHOCYTES % (AUTO) 89 % (12-44); MEAN CORPUSCULAR HEMOGLOBIN 27 PG (25-34); MEAN CORPUSCULAR HGB CONC 32 G/DL (32-36); MEAN CORPUSCULAR VOLUME 85 FL (80-99); MEAN PLATELET VOLUME 10.3 FL (7.4-10.4); MONOCYTES # (AUTO) 1.6 X 10^3 (0.0-1.0); MONOCYTES % (AUTO) 4 % (0-12); NEUTROPHILS # (AUTO) 2.3 X 10^3 (1.8-7.8); NEUTROPHILS % (AUTO) 6 % (42-75); PLATELET COUNT 71 10^3/uL (130-400); RED CELL DISTRIBUTION WIDTH 16.4 % (10.0-14.5)
[2018-11-29 09:35] LABS: WHITE BLOOD COUNT 38.6 10^3/uL (4.3-11.0)
[2018-11-29 09:50] LABS: ALBUMIN 3.7 GM/DL (3.2-4.5); BILIRUBIN,TOTAL 0.4 MG/DL (0.1-1.0); CALCIUM 8.5 MG/DL (8.5-10.1); CREATININE SERUM 1.56 MG/DL (0.60-1.30); POTASSIUM 4.9 MMOL/L (3.6-5.0); TOTAL PROTEIN 5.8 GM/DL (6.4-8.2)
[~2019-02-20 13:04] MED LIST changes: +OXYC-471 PO
[2019-02-20 13:20] LABS: BASOPHILS # (AUTO) 0.1 10^3/uL (0.0-0.1); BASOPHILS % (AUTO) 0 % (0-10); EOSINOPHILS # (AUTO) 0.4 10^3/uL (0.0-0.3); EOSINOPHILS % (AUTO) 1 % (0-10); HEMATOCRIT 32 % (40-54); HEMOGLOBIN 10.1 G/DL (13.3-17.7); LYMPHOCYTES # (AUTO) 38.1 X 10^3 (1.0-4.0); LYMPHOCYTES % (AUTO) 91 % (12-44); MEAN CORPUSCULAR HEMOGLOBIN 27 PG (25-34); MEAN CORPUSCULAR HGB CONC 32 G/DL (32-36); MEAN CORPUSCULAR VOLUME 85 FL (80-99); MONOCYTES # (AUTO) 1.6 X 10^3 (0.0-1.0); MONOCYTES % (AUTO) 4 % (0-12); NEUTROPHILS # (AUTO) 1.9 X 10^3 (1.8-7.8); NEUTROPHILS % (AUTO) 5 % (42-75); PLATELET COUNT 79 10^3/uL (130-400); RED CELL DISTRIBUTION WIDTH 16.8 % (10.0-14.5)
[2019-02-20 13:23] LABS: WHITE BLOOD COUNT 42.1 10^3/uL (4.3-11.0)
[2019-02-20 13:43] LABS: ALBUMIN 3.9 GM/DL (3.2-4.5); BILIRUBIN,TOTAL 0.4 MG/DL (0.1-1.0); CALCIUM 8.8 MG/DL (8.5-10.1); CREATININE SERUM 2.01 MG/DL (0.60-1.30); POTASSIUM 5.7 MMOL/L (3.6-5.0); TOTAL PROTEIN 6.1 GM/DL (6.4-8.2)
== END 2019-02-27 | disposition home or self-care (01) ==
LOC: ONC 13:04
PROVIDERS: ATTEND Internal Medicine Hematology & Oncology
DX: C91.10 Chronic lymphocytic leukemia of B-cell type not having achieved remission (principal); Z85.528 Personal history of other malignant neoplasm of kidney; E87.5 Hyperkalemia; D80.1 Nonfamilial hypogammaglobulinemia; I12.9 Hypertensive chronic kidney disease with stage 1 through stage 4 chronic kidney disease, or unspecified chronic kidney disease; E11.22 Type 2 diabetes mellitus with diabetic chronic kidney disease; N18.3 Chronic kidney disease, stage 3 (moderate); I25.10 Atherosclerotic heart disease of native coronary artery without angina pectoris; E78.00 Pure hypercholesterolemia, unspecified; M10.9 Gout, unspecified; Z95.1 Presence of aortocoronary bypass graft; Z79.4 Long term (current) use of insulin; Z79.899 Other long term (current) drug therapy
CPT/HCPCS: 36415; 80053; 83615; 85025; 99213

== ENCOUNTER 2019-06-19 09:27 | Outpatient (RCR) | payer MEDICARE, BC ==
[2019-03-27 10:15] LABS: HEMATOCRIT 33 % (40-54); HEMOGLOBIN 10.6 G/DL (13.3-17.7); MEAN CORPUSCULAR HEMOGLOBIN 27 PG (25-34); MEAN CORPUSCULAR HGB CONC 32 G/DL (32-36); MEAN CORPUSCULAR VOLUME 85 FL (80-99); MEAN PLATELET VOLUME 11.8 FL (7.4-10.4); PLATELET COUNT 70 10^3/uL (130-400); RED CELL DISTRIBUTION WIDTH 16.8 % (10.0-14.5)
[2019-03-27 10:28] LABS: WHITE BLOOD COUNT 58.1 10^3/uL (4.3-11.0)
[2019-03-27 10:44] LABS: BILIRUBIN,TOTAL 0.5 MG/DL (0.1-1.0); CALCIUM 8.8 MG/DL (8.5-10.1); CREATININE SERUM 2.04 MG/DL (0.60-1.30); POTASSIUM 5.3 MMOL/L (3.6-5.0); TOTAL PROTEIN 6.4 GM/DL (6.4-8.2)
[2019-04-24 10:39] LABS: BASOPHILS # (AUTO) 0.1 10^3/uL (0.0-0.1); BASOPHILS % (AUTO) 0 % (0-10); EOSINOPHILS # (AUTO) 0.5 10^3/uL (0.0-0.3); EOSINOPHILS % (AUTO) 1 % (0-10); HEMATOCRIT 31 % (40-54); HEMOGLOBIN 9.6 G/DL (13.3-17.7); LYMPHOCYTES # (AUTO) 53.9 X 10^3 (1.0-4.0); LYMPHOCYTES % (AUTO) 93 % (12-44); MEAN CORPUSCULAR HEMOGLOBIN 27 PG (25-34); MEAN CORPUSCULAR HGB CONC 32 G/DL (32-36); MEAN CORPUSCULAR VOLUME 87 FL (80-99); MONOCYTES # (AUTO) 1.6 X 10^3 (0.0-1.0); MONOCYTES % (AUTO) 3 % (0-12); NEUTROPHILS # (AUTO) 2.1 X 10^3 (1.8-7.8); NEUTROPHILS % (AUTO) 4 % (42-75); PLATELET COUNT 72 10^3/uL (130-400); RED CELL DISTRIBUTION WIDTH 16.9 % (10.0-14.5)
[2019-04-24 10:41] LABS: WHITE BLOOD COUNT 58.1 10^3/uL (4.3-11.0)
[2019-04-24 10:55] LABS: ALBUMIN 3.8 GM/DL (3.2-4.5); BILIRUBIN,TOTAL 0.4 MG/DL (0.1-1.0); CALCIUM 8.2 MG/DL (8.5-10.1); CREATININE SERUM 1.94 MG/DL (0.60-1.30); POTASSIUM 5.2 MMOL/L (3.6-5.0)
[~2019-06-19 09:27] MED LIST changes: +ACETAMINOPHEN 325 MG TAB (TYLENOL) CANCER CTR ONE; +ACETAMINOPHEN 325 MG TAB (TYLENOL) CANCER CTR PO PRN; +ACETAMINOPHEN 500 MG TAB (TYLENOL) CANCER CTR ONE; +IMMU GLOBULIN,GAMMA (IGG) 100 ML IV SCH; +IMMUNE GLOBULIN,GAMMA (IGG) 200 ML IV SCH; +diphenhydrAMINE 25 MG TAB (BENADRYL) CANCER CENTER PO ONE; +diphenhydrAMINE 50 MG/ML INJ (CANCER CENTER) IM PRN
[2019-06-19 09:49] LABS: BASOPHILS # (AUTO) 0.2 10^3/uL (0.0-0.1); BASOPHILS % (AUTO) 0 % (0-10); EOSINOPHILS # (AUTO) 0.8 10^3/uL (0.0-0.3); EOSINOPHILS % (AUTO) 1 % (0-10); HEMATOCRIT 31 % (40-54); HEMOGLOBIN 9.6 G/DL (13.3-17.7); LYMPHOCYTES # (AUTO) 76.9 X 10^3 (1.0-4.0); LYMPHOCYTES % (AUTO) 92 % (12-44); MEAN CORPUSCULAR HEMOGLOBIN 28 PG (25-34); MEAN CORPUSCULAR HGB CONC 31 G/DL (32-36); MEAN CORPUSCULAR VOLUME 88 FL (80-99); MEAN PLATELET VOLUME 10.2 FL (7.4-10.4); MONOCYTES # (AUTO) 2.3 X 10^3 (0.0-1.0); MONOCYTES % (AUTO) 3 % (0-12); NEUTROPHILS # (AUTO) 3.2 X 10^3 (1.8-7.8); NEUTROPHILS % (AUTO) 4 % (42-75); PLATELET COUNT 137 10^3/uL (130-400); RED CELL DISTRIBUTION WIDTH 16.5 % (10.0-14.5)
[2019-06-19 09:50] LABS: WHITE BLOOD COUNT 83.3 10^3/uL (4.3-11.0)
[2019-06-19 10:17] LABS: ALANINE AMINOTRANSFERASE < 6 U/L (0-55); ALBUMIN 3.4 GM/DL (3.2-4.5); ALKALINE PHOSPHATASE 82 U/L (40-136); BILIRUBIN,TOTAL 0.3 MG/DL (0.1-1.0); BUN/CREATININE RATIO 37; CALCIUM 8.1 MG/DL (8.5-10.1); CARBON DIOXIDE 17 MMOL/L (21-32); CHLORIDE 108 MMOL/L (98-107); CREATININE SERUM 1.99 MG/DL (0.60-1.30); GFR ESTIMATED 33; GLUCOSE 137 MG/DL (70-105); POTASSIUM 5.4 MMOL/L (3.6-5.0); SODIUM 135 MMOL/L (135-145); TOTAL PROTEIN 5.9 GM/DL (6.4-8.2)
[2019-06-19 10:19] LABS: SMEAR SCAN COMMENT YES
[2019-06-19] MEDS ORDERED: diphenhydrAMINE 25 MG TAB (BENADRYL) CANCER CENTER PO ONE (10:27)
[2019-06-19] MEDS ORDERED: ACETAMINOPHEN 500 MG TAB (TYLENOL) CANCER CTR ONE (10:28)
== END 2019-06-25 | disposition home or self-care (01) ==
LOC: ONC 09:27
PROVIDERS: ATTEND Internal Medicine Hematology & Oncology
DX: C91.10 Chronic lymphocytic leukemia of B-cell type not having achieved remission (principal); Z85.528 Personal history of other malignant neoplasm of kidney; E87.5 Hyperkalemia; D80.1 Nonfamilial hypogammaglobulinemia; I12.9 Hypertensive chronic kidney disease with stage 1 through stage 4 chronic kidney disease, or unspecified chronic kidney disease; E11.22 Type 2 diabetes mellitus with diabetic chronic kidney disease; N18.3 Chronic kidney disease, stage 3 (moderate); I25.10 Atherosclerotic heart disease of native coronary artery without angina pectoris; E78.00 Pure hypercholesterolemia, unspecified; M10.9 Gout, unspecified; Z95.1 Presence of aortocoronary bypass graft; Z79.4 Long term (current) use of insulin; Z79.899 Other long term (current) drug therapy
CPT/HCPCS: 36415; 80053; 82784; 83615; 85025; 96365; 96366; J1569

== ENCOUNTER 2019-06-29 08:26 | Inpatient (IN) | payer MEDICARE, BC ==
[~2019-06-29] VITALS: Ht 175.3 cm; Wt 95.7 kg
[~2019-06-29 08:26] MED LIST changes: -ACETAMINOPHEN 325 MG TAB (TYLENOL) CANCER CTR ONE; -ACETAMINOPHEN 325 MG TAB (TYLENOL) CANCER CTR PO PRN; -ACETAMINOPHEN 500 MG TAB (TYLENOL) CANCER CTR ONE; -IMMU GLOBULIN,GAMMA (IGG) 100 ML IV SCH; -IMMUNE GLOBULIN,GAMMA (IGG) 200 ML IV SCH; -diphenhydrAMINE 25 MG TAB (BENADRYL) CANCER CENTER PO ONE; -diphenhydrAMINE 50 MG/ML INJ (CANCER CENTER) IM PRN
--- NOTE | 2019-06-29 08:45 | NUR ---
PT STATES NO CHANGE IN CURRENT MEDS
--- NOTE | 2019-06-29 09:31 | ED Integumentary General ---
General Chief Complaint: Lower Extremity Stated Complaint: HEEL PAIN Nursing Triage Note: PT TO TRIAGE PER W/C PT CO OF PAIN IN L GREAT TOE AND R HEEL HAS AREA OF CONCERN. PAIN DARK AREA W SL REDDNESS NOTED. PT STATES HAS GOUT IN R GREAT TOE Source: patient Exam Limitations: no limitations (ROGELIO PEREZ,MED STUDENT) History of Present Illness Date Seen by Provider: Jun 29, 2019 Time Seen by Provider: 09:14 Initial Comments 79 M complains of sharp R heel pain beginning yesterday. States he noticed the pain when he woke up and ambulated to bathroom. Pain is made worse by pressure. He examined heel and noticed red spot. used needle sterilized with alcohol to pop the red blister, thinking maybe there was a splinter and expressed blood. Pt also complains of L great toe irritation, scaliness, and pain. Pain has been stable for about three weeks. Pt recently visited Dr. Acosta for diffuse pruritic erythematous rash on tr unk. He was prescribed a steroid taper that he finished two days ago without improvement. Past medical history is notable for CKD stage III, Leukemia and diabetes. Timing/Duration: yesterday Severity: mild Location: feet Possible Cause: no cause identified Modifying Factors: worse with other (pressure) Associated Symptoms: edema (attributes to CKD ); No fever, No headache, No malaise (ROGELIO PEREZ,MED STUDENT) Initial Comments Here with right heel pain and left great toe pain. Left great toe is been going on for quite some time with redness that hasn't changed and is not better or worse despite steroids. Does have history of diabetes but usually is well controlled. Also has leukemia. He does not want chemotherapy. Denies fever or chills. Heel wound noted yesterday and is not significantly worse today. There is no significant advancing erythema from either area. (RENNY LOMBARDI MD) Allergies and Home Medications Allergies Coded Allergies: aspartame (Unverified Allergy, Severe, 10/23/10) codeine (Unverified Adverse Reaction, Intermediate, HIGH ANXIETY, NAUSEA, 10/11/18) Home Medications Cetirizine HCl 10 Mg Tablet, 10 MG PO DAILY, (Reported) Cholecalciferol (Vitamin D3) 2,000 Unit Capsule, 4,000 UNIT PO DAILY, (Reported) Docusate Sodium 100 Mg Capsule, 100 MG PO DAILY, (Reported) Furosemide 40 Mg Tablet, 40 MG PO DAILY, (Reported) Insulin Detemir 100 Unit/1 Ml Insuln.pen, 23 UNITS SC BID, (Reported) Latanoprost 2.5 Ml Drops, 1 DROP OU HS, (Reported) Metoprolol Succinate 50 Mg Tab.er.24h, 50 MG PO DAILY, (Reported) Oxycodone HCl/Acetaminophen 1 Each Tablet, 1 EACH PO Q4H PRN for PAIN-SEVERE Prescribed by: ALEX YARBROUGH on 10/11/18 1248 Simvastatin 20 Mg Tablet, 20 MG PO HS, (Reported) Patient Home Medication List Home Medication List Reviewed: Yes (ROGELIO PEREZ MED STUDENT) Home Medication List Reviewed: Yes (RENNY LOMBARDI MD) Review of Systems Review of Systems Constitutional: No chills, No fever EENTM: No ear pain, No eye pain Respiratory: No cough, No short of breath Cardiovascular: No chest pain; edema (due to CKD) Gastrointestinal: No abdominal pain, No constipation, No diarrhea Genitourinary: No incontinence, No pain Musculoskeletal: gout, joint swelling (L great toe ) Skin: see HPI, lesions (1cm subepithelial blister ), pruritus (chest and trunk ), rash (diffuse pruritic erythematous rash on trunk ) Psychiatric/Neurological: Denies Anxiety, Denies Depressed Endocrine: Intolerance to Cold; Denies Unexplained Weight Gain, Denies Unexplaned Weight Loss Hematologic/Lymphatic: Other (leukemia ) (ROGELIO PEREZ MED STUDENT) All Other Systems Reviewed Negative Unless Noted: Yes (RENNY LOMBARDI MD) Past Hmlypiu-Brizel-Qnqneh Hx Past Med/Social Hx: Reviewed Nursing Past Med/Soc Hx (RENNY LOMBARDI MD) Patient Social History Alcohol Use: Denies Use Recreational Drug Use: No Smoking Status: Never a Smoker 2nd Hand Smoke Exposure: No Recent Foreign Travel: No Contact w/Someone Who Travel: No Recent Infectious Disease Expo: No Recent Hopitalizations: No (ROGELIO PEREZ MED STUDENT) Seasonal Allergies Seasonal Allergies: Yes (ROGELIO PEREZ MED STUDENT) Past Medical History Surgeries: Yes (L kidney removed, several skin cancers removed, ) CABG, Nephrectomy Respiratory: No (mild case of pneumonia 08/11/18 ) Cardiac: Yes (CABG) Coronary Artery Disease, Hypertension Neurological: No Reproductive Disorders: No Genitourinary: Yes (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) Renal Failure Gastrointestinal: Yes (constipation at times) Musculoskeletal: Yes (R elbow bursitis, walks with cane) Amputee, Arthritis Endocrine: Yes Diabetes, Insulin dep HEENT: Yes (cataracts removed, "bleeders behind eyes at times") Cataract, Glaucoma Hearing Impairment: Hard of Hearing Cancer: Yes Leukemia, Skin, Kidney Did You Recieve Any Treatments: Yes What Type of Treatment Did You: Surgical Intervention Psychosocial: No Integumentary: No Blood Disorders: No (low platelets) (ROGELIO PEREZ,MED STUDENT) Family Medical History Reviewed Nursing Family Hx (RENNY LOMBARDI MD) Cancer (ROGELIO PEREZ MED STUDENT) No Pertinent Family Hx (RENNY LOMBARDI MD) Physical Exam Vital Signs Vital Signs - First Documented 06/29/19 08:30 Temp 36.9 Pulse 87 Resp 18 B/P (MAP) 123/69 (87) Pulse Ox 97 (RENNY LOMBARDI MD) Vital Signs Capillary Refill : Less Than 3 Seconds (ROGELIO PEREZ,MED STUDENT) General Appearance: WD/WN, no apparent distress HEENT: PERRL/EOMI, pharynx normal Cardiovascular: regular rate, rhythm, no gallop, no murmur Respiratory: chest non-tender, lungs clear, normal breath sounds, no respiratory distress, no accessory muscle use Back: other (diffuse erythematous rash, some scattered epithelial breakdown ) Extremities: pedal edema (+2 pitting ), swelling Neurologic/Psychiatric: alert, oriented x 3 Skin: rash (as described), other (3cm purple/red flat blister on back of R heel. Red, scaling lesion on L great toe ) Skin Problem Character: lesion, rash, tenderness (ROGELIO PEREZ,MED STUDENT) General Appearance: WD/WN, no apparent distress Cardiovascular: regular rate, rhythm, no murmur Respiratory: lungs clear, normal breath sounds Neurologic/Psychiatric: alert, oriented x 3 Skin: warm/dry, rash (as described), other (3cm purple/red flat blister on back of R heel. Red, scaling lesion on L great toe ) Skin Problem Character: lesion (right heel), rash, tenderness (left great toe and right heel) Comments Rash to the chest and back shows several circular raised lesions and surrounding erythema. (RENNY LOMBARDI MD) Progress/Results/Core Measures Results/Orders Lab Results Laboratory Tests Test 06/29/19 09:50 Range/Units White Blood Count 134.2 *H 4.3-11.0 10^3/uL Red Blood Count 3.72 L 4.35-5.85 10^6/uL Hemoglobin 10.1 L 13.3-17.7 G/DL Hematocrit 33 L 40-54 % Mean Corpuscular Volume 90 80-99 FL Mean Corpuscular Hemoglobin 27 25-34 PG Mean Corpuscular Hemoglobin Concent 30 L 32-36 G/DL Red Cell Distribution Width 17.1 H 10.0-14.5 % Platelet Count 109 L 130-400 10^3/uL Mean Platelet Volume 11.2 H 7.4-10.4 FL Neutrophils (%) (Auto) 4 L 42-75 % Lymphocytes (%) (Auto) 93 H 12-44 % Monocytes (%) (Auto) 2 0-12 % Eosinophils (%) (Auto) 1 0-10 % Basophils (%) (Auto) 0 0-10 % Neutrophils # (Auto) 4.6 1.8-7.8 X 10^3 Lymphocytes # (Auto) 124.6 H 1.0-4.0 X 10^3 Monocytes # (Auto) 3.1 H 0.0-1.0 X 10^3 Eosinophils # (Auto) 1.5 H 0.0-0.3 10^3/uL Basophils # (Auto) 0.3 H 0.0-0.1 10^3/uL Neutrophils % (Manual) 4 % Lymphocytes % (Manual) 95 % Monocytes % (Manual) 0 % Eosinophils % (Manual) 1 % Basophils % (Manual) 0 % Band Neutrophils 0 % Smudge Cells MOD Anisocytosis SLIGHT Erythrocyte Sedimentation Rate 3 0-30 MM/HR Sodium Level 135 135-145 MMOL/L Potassium Level 6.2 H 3.6-5.0 MMOL/L Chloride Level 109 H 98-107 MMOL/L Carbon Dioxide Level 17 L 21-32 MMOL/L Anion Gap 9 5-14 MMOL/L Blood Urea Nitrogen 64 H 7-18 MG/DL Creatinine 1.84 H 0.60-1.30 MG/DL Estimat Glomerular Filtration Rate 36 BUN/Creatinine Ratio 35 Glucose Level 110 H 70-105 MG/DL Uric Acid 13.0 H 2.6-7.2 MG/DL Calcium Level 8.0 L 8.5-10.1 MG/DL Corrected Calcium 8.6 8.5-10.1 MG/DL Total Bilirubin 0.4 0.1-1.0 MG/DL Aspartate Amino Transf (AST/SGOT) 21 5-34 U/L Alanine Aminotransferase (ALT/SGPT) 11 0-55 U/L Alkaline Phosphatase 67 40-136 U/L C-Reactive Protein High Sensitivity 1.64 H 0.00-0.50 MG/DL Total Protein 5.4 L 6.4-8.2 GM/DL Albumin 3.3 3.2-4.5 GM/DL (RENNY LOMBARDI MD) My Orders Orders - RENNY LOMBARDI MD Cbc With Automated Diff (06/29/19 09:22) Comprehensive Metabolic Panel (06/29/19 09:22) Hs C Reactive Protein (06/29/19 09:22) Erythrocyte Sedimentation Rate (06/29/19 09:22) Ed Iv/Invasive Line Start (06/29/19 09:22) Ankle, Right, 3 Views (06/29/19 09:22) Manual Differential (06/29/19 09:50) Uric Acid (06/29/19 11:16) Ed Iv/Invasive Line Start (06/29/19 12:09) Ns Iv 1000 Ml (Sodium Chloride 0.9%) (06/29/19 12:09) Ekg Tracing (06/29/19 12:12) Magnesium (06/29/19 12:25) Phosphorus (06/29/19 12:25) Calcium Gluconate 10% Inj (Calcium Glu (06/29/19 12:30) Calcium Gluconate 10% Inj (Calcium Glu (06/29/19 12:30) D50w (Emergency) Syringe (Dextrose 50% 5 (06/29/19 12:30) Insulin (Regular) Human (Humulin R (Per (06/29/19 12:25) Lactic Acid Analyzer (06/29/19 12:44) Blood Culture (06/29/19 12:44) (RENNY LOMBARDI MD) Medications Given in ED Current Medications Medications Dose Ordered Sig/Buddy Route Start Time Stop Time Status Last Admin Dose Admin Calcium Gluconate 4.65 meq ONCE ONCE IV 06/29/19 12:30 06/29/19 12:31 DC 06/29/19 12:43 4.65 MEQ Calcium Gluconate 4.65 meq ONCE ONCE IV 06/29/19 12:30 06/29/19 12:31 DC 06/29/19 12:44 4.65 MEQ Dextrose 50 ml ONCE ONCE IV 06/29/19 12:30 06/29/19 12:31 DC 06/29/19 12:44 50 ML Sodium Chloride 1,000 ml @ 0 mls/hr Q0M ONCE IV 06/29/19 12:09 06/29/19 12:12 DC 06/29/19 12:31 1,000 MLS/HR (RENNY LOMBARDI MD) Vital Signs/I&O 06/29/19 08:30 Temp 36.9 Pulse 87 Resp 18 B/P (MAP) 123/69 (87) Pulse Ox 97 (RENNY LOMBARDI MD) Blood Pressure Mean: 87 Progress Progress Note : Time: 09:54 Progress Note Seen and evaluated. Ordered CBC, CMP, c reactive protein and ESR. Will image R ankle for possible fracture/foreign body due to questionable history and medical hx of diabetes. L toe concerning for cellulitis but cannot r/o leukemoid reaction. Dr. Acosta is following trunk rash and has close follow up. (ROGELIO PEREZ,MED STUDENT) Progress Note : Progress Note I have seen and evaluated the patient and agree with above except as indicated. I directed the plan of care. Given patient's history of leukemia, we will go ahead and check labs and get an x-ray of the right ankle. Monitor patient. 1114: I have discussed the case with Dr. Gonzalez and his Dr. Keys. We will check uric acid and evaluate for tumor lysis syndrome. 1206: Uric acid is elevated and tumor lysis syndrome is a consideration. We will go ahead and give normal saline 1 L bolus. We will check EKG. I discussed the case with Dr. Gonzalez again. We will treat for hyperkalemia and he will admit the patient, inpatient status. I discussed this with the patient and family who agree with plan. Calcium gluconate 2 A IV pending EKG and we will give insulin 10 units IV and D50 50 mL IV. Patient is otherwise stable. Monitor patient. 1238: EKG prior to calcium shows normal QRS and normal EKG overall. No concerns for QRS widening and/or peaked T waves with hyperkalemia. Given the patient has question of cellulitis of the left great toe and there is a small wound on the right heel, we will go ahead and get blood cultures and lactic acid. I will initiate 1 g of Rocephin IV now with clindamycin to follow. Very unlikely that this is of significant consequence as they have been fairly stable over the last several weeks. Unable to determine sepsis related to white count in the setting of leukemia and with questions of tumor lysis syndrome, patient's chemistries will not be of great value with regard to sepsis so we will go ahead and treat with antibiotics. Patient certainly does not have findings of severe sepsis or septic shock and this will be pursued. (RENNY LOMBARDI MD) Initial ECG Impression Date: Jun 29, 2019 Initial ECG Impression Time: 12:27 Initial ECG Rate: 81 Initial ECG Rhythm: Normal Sinus Initial ECG Impression: Normal Initial ECG Comparisson: Unchanged Comment Sinus rhythm with normal but rightward axis. No evidence of ST elevation HI. QRS duration normal. Unchanged from previous of 02/28/18. Interpreted by me. (RENNY LOMBARDI MD) Diagnostic Imaging Diagonstic Imaging: Xray Plain Films/CT/US/NM/MRI: ankle Comments [facility] [place], [place] NAME: [facility] REC#: [id number] PT STATUS: REG ER : 1940 PHYSICIAN: RENNY LOMBARDI MD ADMIT DATE: 06/29/19/ER Draft Date of Exam:06/29/19 ANKLE, RIGHT, 3 VIEWS EXAMINATION: Right ankle radiographs, 3 views. COMPARISON: None. HISTORY: 79-year-old male, right ankle pain. FINDINGS: There is a calcaneal heel spur. There are vascular calcifications. There is an os trigonum. There is mild degenerative-type enthesopathy at the Achilles tendon insertion. The alignment of the ankle mortise is unremarkable. There is no identified acute fracture. There is diffuse reticulation of the subcutaneous fat. There is no cortical or aggressive bone destruction. There is no radiopaque foreign body. There is mild tibiotalar osteoarthritis. IMPRESSION: 1. No radiopaque foreign body or radiographic evidence of osteomyelitis. 2. Scattered degenerative type enthesopathy. 3. Mild tibiotalar osteoarthritis. 3. Diffuse reticulation of the subcutaneous fat which may reflect diffuse subcutaneous edema. Dictated on workstation # [id number] Dict: 06/29/19 1014 Trans: 06/29/19 1024 [facility] [id number] Interpreted by: DELROY ALLEN MD Electronically signed by: (RENNY LOMBARDI MD) Departure Communication (Admissions) Time/Spoke to Admitting Phy: 12:50 (RENNY LOMBARDI MD) Impression Primary Impression: Tumor lysis syndrome Additional Impressions: Cellulitis of great toe of left foot Wound of right foot Disposition: ADMITTED INPATIENT Condition: Stable Admissions Decision to Admit Reason: Admit from ER (General) Decision to Admit/Date: Jun 29, 2019 Time/Decision to Admit Time: 12:50 (RENNY LOMBARDI MD) Departure-Patient Inst. Referrals: GURMEET CROWE MD (PCP/Family) Primary Care Physician Copy Copies To 1: CONNIE HUIZAR MD Copies To 2: MILAN KEYS DREW,MED STUDENT Jun 29, 2019 09:31 RENNY LOMBARDI MD Jun 29, 2019 10:28
[2019-06-29 09:58] LABS: BASOPHILS # (AUTO) 0.3 10^3/uL (0.0-0.1); BASOPHILS % (AUTO) 0 % (0-10); EOSINOPHILS # (AUTO) 1.5 10^3/uL (0.0-0.3); EOSINOPHILS % (AUTO) 1 % (0-10); HEMATOCRIT 33 % (40-54); HEMOGLOBIN 10.1 G/DL (13.3-17.7); LYMPHOCYTES # (AUTO) 124.6 X 10^3 (1.0-4.0); LYMPHOCYTES % (AUTO) 93 % (12-44); MEAN CORPUSCULAR HEMOGLOBIN 27 PG (25-34); MEAN CORPUSCULAR HGB CONC 30 G/DL (32-36); MEAN CORPUSCULAR VOLUME 90 FL (80-99); MEAN PLATELET VOLUME 11.2 FL (7.4-10.4); MONOCYTES # (AUTO) 3.1 X 10^3 (0.0-1.0); MONOCYTES % (AUTO) 2 % (0-12); NEUTROPHILS # (AUTO) 4.6 X 10^3 (1.8-7.8); NEUTROPHILS % (AUTO) 4 % (42-75); PLATELET COUNT 109 10^3/uL (130-400); RED CELL DISTRIBUTION WIDTH 17.1 % (10.0-14.5)
[2019-06-29 10:15] LABS: ALBUMIN 3.3 GM/DL (3.2-4.5); BILIRUBIN,TOTAL 0.4 MG/DL (0.1-1.0); CREATININE SERUM 1.84 MG/DL (0.60-1.30); POTASSIUM 6.2 MMOL/L (3.6-5.0); TOTAL PROTEIN 5.4 GM/DL (6.4-8.2)
[2019-06-29 10:20] LABS: ERYTHROCYTE SEDIMENTATION RATE 3 MM/HR (0-30)
[2019-06-29 10:21] LABS: WHITE BLOOD COUNT 134.2 10^3/uL (4.3-11.0)
--- NOTE | 2019-06-29 10:24 | Diagnostic Imaging Report ---
EXAMINATION: Right ankle radiographs, 3 views. COMPARISON: None. HISTORY: 79-year-old male, right ankle pain. FINDINGS: There is a calcaneal heel spur. There are vascular calcifications. There is an os trigonum. There is mild degenerative-type enthesopathy at the Achilles tendon insertion. The alignment of the ankle mortise is unremarkable. There is no identified acute fracture. There is diffuse reticulation of the subcutaneous fat. There is no cortical or aggressive bone destruction. There is no radiopaque foreign body. There is mild tibiotalar osteoarthritis. IMPRESSION: 1. No radiopaque foreign body or radiographic evidence of osteomyelitis. 2. Scattered degenerative type enthesopathy. 3. Mild tibiotalar osteoarthritis. 3. Diffuse reticulation of the subcutaneous fat which may reflect diffuse subcutaneous edema. Dictated by: Dictated on workstation # [id number]
[2019-06-29 10:26] LABS: ANISOCYTOSIS SLIGHT; BAND NEUTROPHILS 0 %; BASOPHILS % (MANUAL) 0 %; EOSINOPHILS % (MANUAL) 1 %; LYMPHOCYTES % (MANUAL) 95 %; MONOCYTES % (MANUAL) 0 %; NEUTROPHILS % (MANUAL) 4 %; SMUDGE CELLS MOD
[2019-06-29] MEDS ORDERED: NS IV 1000 ML 1,000 ML IV ONE (12:09)
[2019-06-29] MEDS ORDERED: inSUlin (REGULAR) HUMAN 1 UNIT/0.01 ML (CHARGE PER UNIT) IV STA (12:25)
[2019-06-29] MEDS ORDERED: CALCIUM GLUC. 10% 4.65 MEQ/10 ML VIAL IV ONE ×2 (12:30)
[2019-06-29] MEDS ORDERED: DEXTROSE 50% 50 ML (IMS) SYR IV ONE (12:30)
[2019-06-29 12:52] LABS: MAGNESIUM 1.3 MG/DL (1.6-2.4); PHOSPHORUS 4.4 MG/DL (2.3-4.7)
--- NOTE | 2019-06-29 13:50 | NUR ---
FRAN RICO Gurmeet admitted to room 433-1, with an admitting diagnosis of tumor lysis syndrome, on 06/29/19 from ED via wheelchair, accompanied by staff and family. FRAN RICO introduced to surroundings, call light, bed controls, phone, TV, temperature control, lights, meal times, smoking policy, visitor policy, side rail policy, bathrooms and showers. Patient Rights given to patient in the handbook. FRAN RICO verbalizes understanding that [facility] is not responsible for the loss or damage to any personal effects or valuables that are kept in the patients possession during their hospitalization. The following Patient Care Plans were discussed with the patient and family: Discharge Planning, pain management, medications, and dehydration. FRAN RIOC verbalizes understanding of Interdisciplinary Patient Education. Patient and/or family were informed about the Rapid Response Team and its purpose.
[2019-06-29] MEDS ORDERED: ONDANSETRON 4 MG/2 ML (SDV) Z0FRAN IV PRN (14:00)
[2019-06-29] MEDS ORDERED: OXYC1TAB87 PO (14:39)
[2019-06-29] MEDS ORDERED: METO200T48 PO (14:39)
[2019-06-29] MEDS ORDERED: SENN25TA PO (14:39)
[2019-06-29] MEDS ORDERED: BISA-65 PO ×2 (14:39)
[2019-06-29] MEDS ORDERED: PATI8.4P PO (14:39)
[2019-06-29] MEDS ORDERED: FURO40TA4 PO (14:39)
[2019-06-29] MEDS ORDERED: CHOL5000 PO (14:39)
--- NOTE | 2019-06-29 14:43 | NUR ---
PATIENT HAD MOST OF HIS BOTTLES WITH HIM WITH THE EXCEPTION OF THE VITAMIN D AND VELTASSA. I COMPARED HIS BOTTLES WITH THE EXT MED HX AND THEY VERIFIED HOW HE TAKES THEM. THE BOTTLE OF METOPROLOL HE HAS WITH HIM IS OLD HOWEVER THE EXT MED HX SHOWS THE 200MG WAS LAST FILLED 05-02-19. THEY STATE THE 200MG DOSE THAT WAS FILLED WAS AN ERROR AND THE PATIENT IS STILL TO BE TAKING 50MG. THEY HAVE BEEN CUTTING THE 200MG TABLET INTO 4THS AND TAKING 50MG DAILY. OTC MEDS: EX-LAX 25MG DAILY PRN BISACODYL 5MG EVERY MORNING AND 1 ADDITIONAL AT HS NEEDED VITAMIN D3 5000 UNITS DAILY ZYRTEC 10MG DAILY NEEDED
[2019-06-29 15:30] VITALS: BP 161/70
[2019-06-29] MEDS: NS IV 1000 ML 1,000 ML IV SCH (15:34)
[2019-06-29] MEDS: CLINDAMYCIN 900 MG/50 ML IVPB 50 ML IV SCH ×2 (15:34→22:16)
[2019-06-29] MEDS: cefTRIAXone 1,000 MG/SWFI 10 ML IV PUSH IV SCH ×2 (15:34)
[2019-06-29] MEDS ORDERED: SENNOSIDES 25 MG PO PRN (15:45)
[2019-06-29] MEDS ORDERED: BISACODYL 5 MG (DULCOLAX) TABLET PO PRN (15:45)
[2019-06-29] MEDS ORDERED: NON-FORMULARY MEDICATION 1 EA EA (Cetirizine HCl (Zyrtec) 10 MG) PO PRN (15:45)
[2019-06-29] MEDS ORDERED: oxyCODONE/APAP 5/325MG (PERCOCET 5) TABLET PO PRN (15:45)
[2019-06-29] MEDS ORDERED: RT-ALBUTEROL SULF 2.5 MG/3 ML PRE-MIX VIAL INH PRN (15:45)
[2019-06-29] MEDS ORDERED: NS IV NR (16:00)
[2019-06-29] MEDS ORDERED: RASBURICASE IV NR (16:00)
[2019-06-29] MEDS ORDERED: LORATADINE (CLARITIN) 10 MG TAB PO PRN (16:00)
[2019-06-29] MEDS ORDERED: SENNOSIDES 8.6 MG (SENOKOT) TAB PO PRN (16:15)
[2019-06-29 16:35] VITALS: BP 128/59
[2019-06-29] MEDS: ALLOPURINOL 300 MG (ZYLOPRIM) TAB PO SCH (17:58)
--- NOTE | 2019-06-29 18:32 | History & Physicial ---
History of Present Illness History of Present Illness Reason for visit/HPI Mr. 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 His was able to rupture the bulla and blood was expressed. He does not remember any source of trauma, and as far as he knows, it was not there the day before. He did note that he developed a diffuse rash since about three weeks ago and just finished a short steroid taper two days ago. In the ED, he was incidentally found to have acutely worsened leukocytosis (from 83.3 on 06/22/19 to 134 today) and severe hyperuricemia. Patient chronically feels cold but has not noticed any clear fevers, chills or sweats. At baseline, he is quite sedentary. As an outpatient, he is being followed for CLL with gradually worsening lymphocytosis and a host of slowly progressive constitutional symptoms that may be associated with his other chronic illnesses or progression of CLL. He has several indications to begin treatment for CLL but he has declined any treatment thus far. Date of Admission Jun 29, 2019 at 12:50 Date Seen by a Provider: Jun 29, 2019 Time Seen by a Provider: 18:29 I consulted on this patient on 06/29/19 18:27 Attending Physician Priyank Cassidy MD Admitting Physician Priyank Cassidy MD Consult Allergies and Home Medications Allergies Coded Allergies: aspartame (Unverified Allergy, Severe, 10/23/10) codeine (Unverified Adverse Reaction, Intermediate, HIGH ANXIETY, NAUSEA, 10/11/18) Home Medications Bisacodyl 5 Mg Tablet.dr, 5 MG PO DAILY, (Reported) Bisacodyl 5 Mg Tablet.dr, 5 MG PO HS PRN for CONSTIPATION-4TH LINE, (Reported) Cetirizine HCl 10 Mg Tablet, 10 MG PO DAILY PRN for ALLERGIES, (Reported) Cholecalciferol (Vitamin D3) 5,000 Unit Capsule, 5,000 UNIT PO DAILY, (Reported) Furosemide 40 Mg Tablet, 40 MG PO DAILY, (Reported) Furosemide 40 Mg Tablet, 40 MG PO 0 PRN for WEIGHT GAIN, (Reported) TAKES AN ADDITIONAL TABLET IN THE EVENING NEEDED FOR WEIGHT GAIN Insulin Detemir 100 Unit/1 Ml Insuln.pen, 18 UNITS SC BID, (Reported) Latanoprost 2.5 Ml Drops, 1 DROP OU HS, (Reported) Metoprolol Succinate 200 Mg Tab.er.24h, 50 MG PO DAILY, (Reported) TAKES 1/4 (200MG) TABLET Oxycodone HCl/Acetaminophen 1 Each Tablet, 1 TAB PO Q8H PRN for PAIN-MODERATE (5-7), (Reported) Patiromer Calcium Sorbitex 8.4 Gm Powd.pack, 1 PACKET PO 1200, (Reported) Sennosides 25 Mg Tablet, 25 MG PO DAILY PRN for CONSTIPATION-5TH LINE, (Repor harsha) Simvastatin 20 Mg Tablet, 20 MG PO HS, (Reported) Patient Home Medication List Home Medication List Reviewed: Yes Past Hmrwkfz-Arscbq-Uhecmx Hx Patient Social History Alcohol Use: Denies Use Recreational Drug Use: No Smoking Status: Never a Smoker 2nd Hand Smoke Exposure: No Recent Foreign Travel: No Contact w/other who traveled: No Recent Hopitalizations: No Recent Infectious Disease Expo: No Seasonal Allergies Seasonal Allergies: Yes Surgeries Yes (L kidney removed, several skin cancers removed, ) CABG, Nephrectomy Respiratory No (mild case of pneumonia 08/11/18 ) Cardiovascular Yes (CABG) Coronary Artery Disease, Hypertension Neurological No Reproductive System Hx Reproductive Disorders: No Genitourinary Yes (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) Renal Failure Gastrointestinal Yes (constipation at times) Musculoskeletal Yes (R elbow bursitis, walks with cane) Amputee, Arthritis Endocrine History of Endocrine Disorders: Yes Endocrine Disorders: Diabetes, Insulin dep HEENT History of HEENT Disorders: Yes (cataracts removed, "bleeders behind eyes at times") HEENT Disorders: Cataract, Glaucoma Hearing Impairment: Hard of Hearing Cancer Yes Leukemia, Skin, Kidney Did You Recieve Any Treatments: Yes Type of Treatment: Surgical Intervention Psychosocial History of Psychiatric Problem: No Integumentary History of Skin or Integumenta: No Blood Transfusions History of Blood Disorders: No (low platelets) Family Medical History Significant Family History: No Pertinent Family Hx Review of Systems Constitutional: chills; No fever; weakness EENTM: no symptoms reported Respiratory: no symptoms reported Cardiovascular: edema Gastrointestinal: loss of appetite Genitourinary: no symptoms reported Musculoskeletal: muscle weakness Skin: rash Psychiatric/Neurological: No Symptoms Reported Physical Exam Vital Signs Vital Signs - First Documented 06/29/19 06/29/19 08:30 15:30 Temp 36.9 Pulse 87 Resp 18 B/P (MAP) 123/69 (87) Pulse Ox 97 O2 Delivery Room Air FiO2 21 Capillary Refill : Less Than 3 Seconds Height, Weight, BMI Height: 5'9.00" Weight: 200lbs. 4.0oz. [id number]; 31.14 BMI Method:Stated General Appearance: No Apparent Distress, WD/WN, Chronically ill Eyes: Bilateral Eye Normal Inspection HEENT: PERRL/EOMI, Normal ENT Inspection Neck: Normal Inspection, Supple Respiratory: Chest Non Tender, Lungs Clear, Normal Breath Sounds, No Accessory Muscle Use, No Respiratory Distress Cardiovascular: Regular Rate, Rhythm, No Murmur Gastrointestinal: Normal Bowel Sounds, Non Tender, Soft Extremity: Pedal Edema, Other (right plantar heel with a small open wound surrounded by an erythematous weal and ecchymoses, significantly tender to palpation and warm, but no drainage) Neurologic/Psychiatric: Alert, Oriented x3, medical associate II-XII Norm as Tested Skin: Warm/Dry, Rash (diffuse, patchy, scaled, plaques, distributed over entire body including scalp and extremities) Assessment/Plan Assessment and Plan Patient is a 79 yo male with DM, CAD, CKD, and CLL who was admitted with hyperuricemia secondary to tumor lysis syndrome. The rapid elevation of his lymphocytosis could be related to recent steroid use and infection of his right heel. It could also be disease progression. CLL lymphocytes are fragile and have rapid turnover even without active treatment. Steroids also have known tumoricidal effect, although not usually at the low doses the patient was given. Some component of this may just be his poor metabolism of purines, as evidenced by his history of gout. Given his baseline poor kidney function, we will need to monitor aggressively and treat. Anticipate stay of at least two midnights. 1. 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 Given one dose of rasburicase and started on allopurinol. Received 1L of NS in the ED. Will continue IVF but rate is limited by patient's moderate to severe CKD and peripheral edema. Will reevaluate tomorrow for repeat doses of rasburicase. 2. Hyperkalemia. Patient has chronic hyperkalemia (related to CKD?) and K is not much higher today than usual. However, in the setting of TLS, he was given IVF, furosemide, insulin and calcium gluconate. 3. Presumed cellulitis of the foot. Treated empirically with ceftriaxone and clindamycin. 4. DM. Continue home detemir. 5. CAD. No diagnosis of CHF but fairly significant peripheral edema, probably due to combination of CKD and venous insufficiency. We will continue home furosemide and supplement with IV furosemide as indicated. Admission Diagnosis Admission Status: Inpatient Order (span 2 midnights) Reason for Inpatient Admission: tumor lysis syndrome Clinical Quality Measures DVT/VTE Risk/Contraindication: Risk Factor Score Per Nursin RFS Level Per Nursing on Admit: 4+=Very High PRIYANK CASSIDY MD Jun 29, 2019 18:32
[2019-06-29] MEDS: SIMvastatin 20 MG (ZOCOR) TAB PO SCH (19:33)
[2019-06-29] MEDS: LATANOPROST 0.005% (XALATAN) OPHTH SOLN 2.5 ML OU SCH (19:34)
[2019-06-29 20:15] VITALS: BP 136/63
[2019-06-29] MEDS ORDERED: NON-FORMULARY MEDICATION 1 EA EA (Insulin Detemir (Levemir Flextouch) 18 UNITS) SC SCH (21:00)
[2019-06-30] VITALS: BP 121/58
[2019-06-30 04:00] VITALS: BP 124/56
[2019-06-30] MEDS: CLINDAMYCIN 900 MG/50 ML IVPB 50 ML IV SCH ×3 (05:23→21:35)
[2019-06-30 06:36] LABS: BASOPHILS # (AUTO) 0.2 10^3/uL (0.0-0.1); BASOPHILS % (AUTO) 0 % (0-10); EOSINOPHILS # (AUTO) 1.2 10^3/uL (0.0-0.3); EOSINOPHILS % (AUTO) 1 % (0-10); HEMATOCRIT 28 % (40-54); HEMOGLOBIN 8.4 G/DL (13.3-17.7); LYMPHOCYTES % (AUTO) 92 % (12-44); MEAN CORPUSCULAR HEMOGLOBIN 27 PG (25-34); MEAN CORPUSCULAR HGB CONC 30 G/DL (32-36); MEAN CORPUSCULAR VOLUME 90 FL (80-99); MEAN PLATELET VOLUME 10.2 FL (7.4-10.4); MONOCYTES # (AUTO) 2.6 X 10^3 (0.0-1.0); MONOCYTES % (AUTO) 3 % (0-12); NEUTROPHILS # (AUTO) 3.6 X 10^3 (1.8-7.8); NEUTROPHILS % (AUTO) 4 % (42-75); PLATELET COUNT 87 10^3/uL (130-400); RED CELL DISTRIBUTION WIDTH 17.3 % (10.0-14.5)
[2019-06-30 06:40] LABS: WHITE BLOOD COUNT 95.5 10^3/uL (4.3-11.0)
[2019-06-30 06:57] LABS: ALBUMIN 2.7 GM/DL (3.2-4.5); BILIRUBIN,TOTAL 0.3 MG/DL (0.1-1.0); CALCIUM 7.5 MG/DL (8.5-10.1); CREATININE SERUM 1.76 MG/DL (0.60-1.30); PHOSPHORUS 3.9 MG/DL (2.3-4.7); POTASSIUM 5.5 MMOL/L (3.6-5.0); TOTAL PROTEIN 4.7 GM/DL (6.4-8.2); URIC ACID 6.3 MG/DL (2.6-7.2)
[2019-06-30 08:00] VITALS: BP 120/56
[2019-06-30] MEDS ORDERED: NON-FORMULARY MEDICATION 1 EA EA (Metoprolol Succinate 50 MG) PO SCH (09:00)
[2019-06-30] MEDS: NS IV 1000 ML 1,000 ML IV SCH (09:53)
[2019-06-30] MEDS: BISACODYL 5 MG (DULCOLAX) TABLET PO SCH (09:53)
[2019-06-30] MEDS: FUROSEMIDE 40 MG (LASIX) TAB PO SCH (09:53)
[2019-06-30] MEDS: meTOproloL SUCCINATE 50 MG (TOPROL XL) TAB PO SCH (09:53)
[2019-06-30] MEDS: ALLOPURINOL 300 MG (ZYLOPRIM) TAB PO SCH (10:04)
[2019-06-30 12:00] VITALS: BP 126/60
--- NOTE | 2019-06-30 12:33 | Progress Note ---
Standard Progress Note Progress Notes/Assess & Plan Date Seen by a Provider: Jun 30, 2019 Time Seen by a Provider: 12:22 Progress/Assessment & Plan Patient is a 79 yo male with DM, CAD, CKD, and CLL who was admitted on 06/29/19 with hyperuricemia secondary to tumor lysis syndrome. WBC lexis from 83 to 134 within two weeks, probably from right heel cellulitis and recent steroid taper for a diffuse rash. It could also be disease progression. Uric acid was 13.0 at time of admission. He feels well this morning and reports no significant events or symptoms overnight. Chronic swelling of his legs may even be a little better. He does not feel as chilled as before, although he requested the temperature turned up in his room. No change in his rash. 1. Tumor lysis syndrome. Uric acid improved to normal range after one dose of rasburicase and IVF. Total white count is also significantly improved, probably from antibiotics. No further dosing of rasburicase indicated. Continue allopurinol and IVF. 2. Hyperkalemia. Patient has chronic hyperkalemia (related to CKD?). K is improved to 5.5 this morning. Continue fluids and PO furosemide and home potassium binder. 3. Cellulitis of the right foot with possible bacteremia. On ceftriaxone and clindamycin. Peripheral culture positive for S. aureus in one bottle. Patient had improvement of chills since admission. Anticipate discharge home with PO cephalosporin to complete antibiotic course. 4. DM. Continue home detemir. 5. CAD. No diagnosis of CHF but fairly significant peripheral edema, probably due to combination of CKD and venous insufficiency. We will continue home furosemide. No indication currently for IV diuretic. 6. Continue admission for at least one more midnight for IV antibiotics and monitoring hyperkalemia. Focused Exam Lactate Level 06/29/19 12:50: Lactic Acid Level 0.89 PRIYANK CASSIDY MD Jun 30, 2019 12:33
[2019-06-30] MEDS: PATIROMER CALCIUM SORBITEX 8.4 GM PO SCH (13:24)
[2019-06-30] MEDS: cefTRIAXone 1,000 MG/SWFI 10 ML IV PUSH IV SCH ×2 (14:12)
[2019-06-30 16:40] VITALS: BP 124/58
[2019-06-30] MEDS: SIMvastatin 20 MG (ZOCOR) TAB PO SCH (19:15)
[2019-06-30] MEDS: LATANOPROST 0.005% (XALATAN) OPHTH SOLN 2.5 ML OU SCH (19:15)
[2019-06-30 19:50] VITALS: BP 123/68
[2019-07-01] VITALS: BP 121/64
[2019-07-01] MEDS: NS IV 1000 ML 1,000 ML IV SCH ×2 (00:10→12:04)
[2019-07-01 04:00] VITALS: BP 133/67
[2019-07-01] MEDS: CLINDAMYCIN 900 MG/50 ML IVPB 50 ML IV SCH (05:37)
[2019-07-01 05:54] LABS: BASOPHILS # (AUTO) 0.2 10^3/uL (0.0-0.1); BASOPHILS % (AUTO) 0 % (0-10); EOSINOPHILS # (AUTO) 1.2 10^3/uL (0.0-0.3); EOSINOPHILS % (AUTO) 1 % (0-10); HEMATOCRIT 28 % (40-54); HEMOGLOBIN 8.3 G/DL (13.3-17.7); LYMPHOCYTES # (AUTO) 94.1 X 10^3 (1.0-4.0); LYMPHOCYTES % (AUTO) 93 % (12-44); MEAN CORPUSCULAR HEMOGLOBIN 27 PG (25-34); MEAN CORPUSCULAR HGB CONC 30 G/DL (32-36); MEAN CORPUSCULAR VOLUME 90 FL (80-99); MEAN PLATELET VOLUME 9.7 FL (7.4-10.4); MONOCYTES # (AUTO) 2.3 X 10^3 (0.0-1.0); MONOCYTES % (AUTO) 2 % (0-12); NEUTROPHILS # (AUTO) 3.6 X 10^3 (1.8-7.8); NEUTROPHILS % (AUTO) 3 % (42-75); PLATELET COUNT 85 10^3/uL (130-400); RED CELL DISTRIBUTION WIDTH 16.9 % (10.0-14.5)
[2019-07-01 05:59] LABS: WHITE BLOOD COUNT 101.3 10^3/uL (4.3-11.0)
[2019-07-01 06:23] LABS: ALBUMIN 2.8 GM/DL (3.2-4.5); BILIRUBIN,TOTAL 0.3 MG/DL (0.1-1.0); CALCIUM 7.3 MG/DL (8.5-10.1); CREATININE SERUM 1.67 MG/DL (0.60-1.30); MAGNESIUM 1.3 MG/DL (1.6-2.4); PHOSPHORUS 3.9 MG/DL (2.3-4.7); POTASSIUM 5.9 MMOL/L (3.6-5.0); TOTAL PROTEIN 4.6 GM/DL (6.4-8.2); URIC ACID 4.2 MG/DL (2.6-7.2)
--- NOTE | 2019-07-01 07:41 | NUR ---
DR. CASSIDY NOTIFIED OF + MRSA BLOOD CULTURE. NO NEW ORDER'S AT THIS TIME.
[2019-07-01 08:00] VITALS: BP 115/56
[2019-07-01] MEDS: ALLOPURINOL 300 MG (ZYLOPRIM) TAB PO SCH (08:45)
[2019-07-01] MEDS: meTOproloL SUCCINATE 50 MG (TOPROL XL) TAB PO SCH (08:45)
[2019-07-01] MEDS: FUROSEMIDE 40 MG (LASIX) TAB PO SCH (08:45)
[2019-07-01] MEDS ORDERED: CALCIUM GLUC. 10% 4.65 MEQ/10 ML VIAL IV ONE (10:45)
[2019-07-01] MEDS ORDERED: FUROSEMIDE 40 MG/4 ML INJ (LASIX) IVP ONE (10:45)
[2019-07-01] MEDS ORDERED: VANCOMYCIN 2000 MG/NS 500 ML IVPB IV NR ×2 (11:05)
--- NOTE | 2019-07-01 11:09 | NUR ---
VANCOMYCIN DOSING SCR 1.67; CRCL ~ 40; BOLUS VANC 20 MG/KG X 95 KG THEN VANC 15 MG/KG ~ 1500 MG Q24H CHECK TROUGH LEVEL BEFORE 3RD DOSE 07/03 1000 HOLD DOSE AND CONTACT PHARMACY IF LEVEL IS GREATER THAN 20
[2019-07-01] MEDS ORDERED: CALCIUM GLUCONATE 1 GM/NS 50 ML IV ONE ×2 (11:15)
[2019-07-01] MEDS: MAGNESIUM 1 GM/100 ML IVPB 100 ML IV SCH ×2 (11:52→12:48)
[2019-07-01] MEDS: BISACODYL 5 MG (DULCOLAX) TABLET PO SCH (11:59)
[2019-07-01 12:00] VITALS: BP 121/57
[2019-07-01] MEDS ORDERED: diphenhydrAMINE 25 MG TAB (BENADRYL) PO PRN (12:15)
[2019-07-01] MEDS: PATIROMER CALCIUM SORBITEX 8.4 GM PO SCH (12:50)
--- NOTE | 2019-07-01 13:04 | Progress Note ---
Standard Progress Note Progress Notes/Assess & Plan Date Seen by a Provider: Jul 01, 2019 Time Seen by a Provider: 12:56 Progress/Assessment & Plan Patient is a 79 yo male with DM, CAD, CKD, and CLL who was admitted on 06/29/19 with hyperuricemia secondary to tumor lysis syndrome. WBC lexis from 83 to 134 within two weeks, probably from right heel cellulitis and recent steroid taper for a diffuse rash. It could also be disease progression. Uric acid was 13.0 at time of admission. Patient continues to feel well overall but his arms are starting to swell with fluid and his rash, particularly on his arms, is becoming more pruritic. Chronic swelling of his legs does not appear to be worse. Wound on his right foot is still slightly tender but does not bother him much. This morning, was called by nursing/lab about blood culture sensitivities coming back positive for MRSA. 1. Tumor lysis syndrome. Appears to be mostly resolved. Continue allopurinol. D/c IVF. 2. Hyperkalemia. Patient has chronic hyperkalemia (related to CKD and chronic metabolic acidosis?). K is back up to 5.9. Continue PO furosemide and home potassium binder. Give additional IV furosemide today. 3. Cellulitis of the right foot with possible bacteremia. Peripheral culture positive for MRSA. This does not fit with his clinical picture but we will recheck cultures, stop ceftriaxone and clindamycin, and start vancomycin. If repeat cultures are negative for 48 hours, consider discharge. 4. DM. Continue home detemir. 5. CAD. No diagnosis of CHF but fairly significant peripheral edema, probably due to combination of CKD and venous insufficiency. We will continue home furosemide. D/c IVF. Give additional IV furosemide today due to anasarca. 6. Worsening rash. Consult surgery to see if skin biopsy can be done inpatient. 7. Continue admission for at least 24-48 hours awaiting negative cultures. Focused Exam Lactate Level 06/29/19 12:50: Lactic Acid Level 0.89 PRIYANK CASSIDY MD Jul 01, 2019 13:04
[2019-07-01] MEDS: PATIENT MAY USE OWN MED,SINGLE MED PO SCH (16:41)
[2019-07-01 16:59] VITALS: BP 125/72
[2019-07-01] MEDS: SIMvastatin 20 MG (ZOCOR) TAB PO SCH (19:40)
[2019-07-01] MEDS: LATANOPROST 0.005% (XALATAN) OPHTH SOLN 2.5 ML OU SCH (19:42)
[2019-07-01 20:48] VITALS: BP 125/72
[2019-07-02] VITALS: BP 133/66
[2019-07-02 04:00] VITALS: BP 111/64
[2019-07-02 05:49] LABS: BASOPHILS # (AUTO) 0.4 10^3/uL (0.0-0.1); BASOPHILS % (AUTO) 0 % (0-10); EOSINOPHILS # (AUTO) 1.8 10^3/uL (0.0-0.3); EOSINOPHILS % (AUTO) 1 % (0-10); HEMATOCRIT 29 % (40-54); HEMOGLOBIN 9.2 G/DL (13.3-17.7); LYMPHOCYTES # (AUTO) 123.8 X 10^3 (1.0-4.0); LYMPHOCYTES % (AUTO) 92 % (12-44); MEAN CORPUSCULAR HEMOGLOBIN 28 PG (25-34); MEAN CORPUSCULAR HGB CONC 32 G/DL (32-36); MEAN CORPUSCULAR VOLUME 86 FL (80-99); MEAN PLATELET VOLUME 10.3 FL (7.4-10.4); MONOCYTES # (AUTO) 3.9 X 10^3 (0.0-1.0); MONOCYTES % (AUTO) 3 % (0-12); NEUTROPHILS # (AUTO) 4.5 X 10^3 (1.8-7.8); NEUTROPHILS % (AUTO) 3 % (42-75); PLATELET COUNT 111 10^3/uL (130-400); RED CELL DISTRIBUTION WIDTH 17.3 % (10.0-14.5)
[2019-07-02 06:14] LABS: BILIRUBIN,TOTAL 0.3 MG/DL (0.1-1.0); CALCIUM 7.4 MG/DL (8.5-10.1); CREATININE SERUM 1.86 MG/DL (0.60-1.30); MAGNESIUM 1.5 MG/DL (1.6-2.4); POTASSIUM 6.1 MMOL/L (3.6-5.0); TOTAL PROTEIN 5.1 GM/DL (6.4-8.2)
[2019-07-02 06:47] LABS: LYMPHOCYTES % (MANUAL) 94 %; MONOCYTES % (MANUAL) 1 %; NEUTROPHILS % (MANUAL) 5 %
--- NOTE | 2019-07-02 06:57 | Consultation - Surgery ---
History of Present Illness History of Present Illness Patient Consulted On(tess/time) 07/02/19 06:52 Date Seen by Provider: Jul 02, 2019 Time Seen by Provider: 06:52 History of Present Illness Consult requested by Dr. Gonzalez for skin biopsy. Patient is a 79 year old male with cll. Patient had blister that was painful to him so had it evaluated. Was admitted and has had rash for about 2-3 weeks . Was on a steroid taper which he had completed. Rash patient states is diffuse and has gotten slightly better. Does not really give him that much discomfort. The right heal is feeling better as well, not having any pain. Denies n/v fever sweats chills shortness of breath or chest pain. Allergies and Home Medications Allergies Coded Allergies: aspartame (Unverified Allergy, Severe, 10/23/10) codeine (Unverified Adverse Reaction, Intermediate, HIGH ANXIETY, NAUSEA, 10/11/18) Home Medications Bisacodyl 5 Mg Tablet.dr, 5 MG PO DAILY, (Reported) Bisacodyl 5 Mg Tablet.dr, 5 MG PO HS PRN for CONSTIPATION-4TH LINE, (Reported) Cetirizine HCl 10 Mg Tablet, 10 MG PO DAILY PRN for ALLERGIES, (Reported) Cholecalciferol (Vitamin D3) 5,000 Unit Capsule, 5,000 UNIT PO DAILY, (Reported) Furosemide 40 Mg Tablet, 40 MG PO DAILY, (Reported) Furosemide 40 Mg Tablet, 40 MG PO 1930 PRN for WEIGHT GAIN, (Reported) TAKES AN ADDITIONAL TABLET IN THE EVENING NEEDED FOR WEIGHT GAIN Insulin Detemir 100 Unit/1 Ml Insuln.pen, 18 UNITS SC BID, (Reported) Latanoprost 2.5 Ml Drops, 1 DROP OU HS, (Reported) Metoprolol Succinate 200 Mg Tab.er.24h, 50 MG PO DAILY, (Reported) TAKES 1/4 (200MG) TABLET Oxycodone HCl/Acetaminophen 1 Each Tablet, 1 TAB PO Q8H PRN for PAIN-MODERATE (5-7), (Reported) Patiromer Calcium Sorbitex 8.4 Gm Powd.pack, 1 PACKET PO 1200, (Reported) Sennosides 25 Mg Tablet, 25 MG PO DAILY PRN for CONSTIPATION-5TH LINE, (Reported) Simvastatin 20 Mg Tablet, 20 MG PO HS, (Reported) Patient Home Medication List Home Medication List Reviewed: Yes Past Eziakrh-Aynsgo-Prnitn Hx Patient Social History Alcohol Use: Denies Use Recreational Drug Use: No Smoking Status: Never a Smoker 2nd Hand Smoke Exposure: No Recent Foreign Travel: No Contact w/Someone Who Travel: No Recent Infectious Disease Expo: No Recent Hopitalizations: No Seasonal Allergies Seasonal Allergies: Yes Surgeries History of Surgeries: Yes (L kidney removed, several skin cancers removed, ) Surgeries: CABG, Nephrectomy Respiratory History of Respiratory Disorde: No (mild case of pneumonia 08/11/18 ) Cardiovascular History of Cardiac Disorders: Yes (CABG) Cardiac Disorders: Coronary Artery Disease, Hypertension Neurological History of Neurological Disord: No Reproductive System Hx Reproductive Disorders: No Genitourinary History of Genitourinary Disor: Yes (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) Genitourinary Disorders: Renal Failure Gastrointestinal History of Gastrointestinal Di: Yes (constipation at times) Musculoskeletal History of Musculoskeletal Dis: Yes (R elbow bursitis, walks with cane) Musculoskeletal Disorders: Amputee, Arthritis Endocrine History of Endocrine Disorders: Yes Endocrine Disorders: Diabetes, Insulin dep HEENT History of HEENT Disorders: Yes (cataracts removed, "bleeders behind eyes at times") HEENT Disorders: Cataract, Glaucoma Hearing Impairment: Hard of Hearing Cancer History of Cancer: Yes Cancer: Leukemia, Skin, Kidney Psychosocial History of Psychiatric Problem: No Integumentary History of Skin or Integumenta: No Blood Transfusions History of Blood Disorders: No (low platelets) Reviewed Nursing Assessment Reviewed/Agree w Nursing PMH: Yes Family Medical History Significant Family History: No Pertinent Family Hx Review of Systems-General Constitutional: no symptoms reported EENTM: no symptoms reported Respiratory: no symptoms reported Cardiovascular: no symptoms reported Gastrointestinal: no symptoms reported Genitourinary: no symptoms reported Musculoskeletal: no symptoms reported Skin: see HPI Psychiatric/Neurological: No Symptoms Reported Physical Exam-General Problems Physical Exam Vital Signs Vital Signs - First Documented 06/29/19 06/29/19 06/29/19 08:30 15:00 15:30 Temp 36.9 Pulse 87 Resp 18 B/P (MAP) 123/69 (87) Pulse Ox 97 O2 Delivery Room Air FiO2 21 Capillary Refill : Less Than 3 Seconds General Appearance: WD/WN, no apparent distress HEENT: PERRL/EOMI Neck: full range of motion, supple Respiratory: chest non-tender, no respiratory distress, no accessory muscle use Cardiovascular: regular rate, rhythm Gastrointestinal: non tender, soft Rectal: deferred Back: no CVA tenderness Extremities: other (erythematous skin rash diffuse, right heal blister) Neurologic/Psychiatric: alert, normal mood/affect, oriented x 3 Skin: other (erythematous rash) Lymphatic: no adenopathy Data Review Labs Laboratory Tests 07/01/19 09:04: Glucometer 120H 07/01/19 20:48: Glucometer 129H 07/02/19 05:45: White Blood Count 134.4*H, Red Blood Count 3.31L, Hemoglobin 9.2L, Hematocrit 29L, Mean Corpuscular Volume 86, Mean Corpuscular Hemoglobin 28, Mean Corpuscular Hemoglobin Concent 32, Red Cell Distribution Width 17.3H, Platelet Count 111L, Mean Platelet Volume 10.3, Neutrophils (%) (Auto) 3L, Lymphocytes (%) (Auto) 92H, Monocytes (%) (Auto) 3, Eosinophils (%) (Auto) 1, Basophils (%) (Auto) 0, Neutrophils # (Auto) 4.5, Lymphocytes # (Auto) 123.8H, Monocytes # (Auto) 3.9H, Eosinophils # (Auto) 1.8H, Basophils # (Auto) 0.4H, Neutrophils % (Manual) 5, Lymphocytes % (Manual) 94, Monocytes % (Manual) 1, Sodium Level 133L , Potassium Level 6.1H, Chloride Level 110H, Carbon Dioxide Level 14L, Anion Gap 9, Blood Urea Nitrogen 60H, Creatinine 1.86H, Estimat Glomerular Filtration Rate 35, BUN/Creatinine Ratio 32, Glucose Level 74, Calcium Level 7.4L, Corrected Calcium 8.2L, Magnesium Level 1.5L, Total Bilirubin 0.3, Aspartate Amino Transf (AST/SGOT) 25, Alanine Aminotransferase (ALT/SGPT) 13, Alkaline Phosphatase 64, Total Protein 5.1L, Albumin 3.0L Microbiology 06/29/19 Blood Culture - Preliminary, Resulted No growth Assessment/Plan Assessment/Plan Assessment/Plan erythematous skin rash right lower extremity edema right heal blister CLL DM discussed risks and benefits of skin biopsy he understands and wishes to proceed. to obtain skin biopsy today. Clinical Quality Measures DVT/VTE Risk/Contraindication: Risk Factor Score Per Nursin RFS Level Per Nursing on Admit: 4+=Very High TAVO PAYTON DO Jul 02, 2019 06:57
[2019-07-02] MEDS ORDERED: LIDOCAINE 1% INJ 20 ML 20 ML VIAL ONE (06:59)
[2019-07-02 08:00] VITALS: BP 147/65
[2019-07-02] MEDS: PATIENT MAY USE OWN MED,SINGLE MED PO SCH (09:03)
[2019-07-02] MEDS: BISACODYL 5 MG (DULCOLAX) TABLET PO SCH (09:04)
[2019-07-02] MEDS: meTOproloL SUCCINATE 50 MG (TOPROL XL) TAB PO SCH (09:04)
[2019-07-02] MEDS: ALLOPURINOL 300 MG (ZYLOPRIM) TAB PO SCH (09:04)
[2019-07-02] MEDS: FUROSEMIDE 40 MG (LASIX) TAB PO SCH (09:04)
[2019-07-02] MEDS ORDERED: VANCOMYCIN INJECTION 1,500 MG in NS IV 500 ML 500 ML IV SCH (11:00)
[2019-07-02] MEDS: PATIROMER CALCIUM SORBITEX 8.4 GM PO SCH (11:39)
[2019-07-02 12:00] VITALS: BP 126/75
[2019-07-02 12:19] VITALS: BP 147/65
--- NOTE | 2019-07-02 13:23 | Progress Note ---
Progress Note Assessment/Plan Time Seen by Provider: 13:22 Events since last exam Pt wants to go home for Mikel. IVF stopped today. Overall doing well. No new complaints. Repeat blood culture from yesterday negative so far. Assessment/Plan Vitals Last set of Vitals Signs Vital Signs Date Time Temp Pulse Resp B/P (MAP) Pulse Ox O2 Delivery O2 Flow Rate FiO2 07/02/19 12:42 67 07/02/19 12:19 36.0 97 07/02/19 08:44 Room Air 07/02/19 08:00 18 147/65 (92) 06/29/19 15:30 21 I&O I&O Intake and Output 07/02/19 00:00 Intake Total 4060 ml Output Total 1100 ml Balance 2960 ml Intake Oral 3010 ml IV Total 1050 ml Output Urine Total 1100 ml # Voids 3 # Bowel Movements 4 Labs Laboratory Tests 07/01/19 20:48: Glucometer 129H 07/02/19 05:45: White Blood Count 134.4*H, Red Blood Count 3.31L, Hemoglobin 9.2L, Hematocrit 29L, Mean Corpuscular Volume 86, Mean Corpuscular Hemoglobin 28, Mean Corpuscular Hemoglobin Concent 32, Red Cell Distribution Width 17.3H, Platelet Count 111L, Mean Platelet Volume 10.3, Neutrophils (%) (Auto) 3L, Lymphocytes (%) (Auto) 92H, Monocytes (%) (Auto) 3, Eosinophils (%) (Auto) 1, Basophils (%) (Auto) 0, Neutrophils # (Auto) 4.5, Lymphocytes # (Auto) 123.8H, Monocytes # (Auto) 3.9H, Eosinophils # (Auto) 1.8H, Basophils # (Auto) 0.4H, Neutrophils % (Manual) 5, Lymphocytes % (Manual) 94, Monocytes % (Manual) 1, Sodium Level 133L , Potassium Level 6.1H, Chloride Level 110H, Carbon Dioxide Level 14L, Anion Gap 9, Blood Urea Nitrogen 60H, Creatinine 1.86H, Estimat Glomerular Filtration Rate 35, BUN/Creatinine Ratio 32, Glucose Level 74, Calcium Level 7.4L, Corrected Calcium 8.2L, Magnesium Level 1.5L, Total Bilirubin 0.3, Aspartate Amino Transf (AST/SGOT) 25, Alanine Aminotransferase (ALT/SGPT) 13, Alkaline Phosphatase 64, Total Protein 5.1L, Albumin 3.0L 07/02/19 09:06: Glucometer 148H Microbiology 06/29/19 Blood Culture - Preliminary, Resulted No growth Clinical Quality Measures DVT/VTE Risk/Contraindication: Risk Factor Score Per Nursin RFS Level Per Nursing on Admit: 4+=Very High KOJO TIAN MD Jul 02, 2019 13:23
--- NOTE | 2019-07-02 15:12 | Discharge Summary ---
Diagnosis/Chief Complaint Date of Admission Jun 29, 2019 at 12:50 Date of Discharge 07/02/2019 Discharge Date: Jul 02, 2019 Discharge Time: 15:11 Discharge Diagnosis 1. Tumor lysis syndrome. Appears to be mostly resolved. Continue allopurinol. D/c IVF. 2. Hyperkalemia. Patient has chronic hyperkalemia (related to CKD and chronic metabolic acidosis?). K is back up to 5.9. Continue PO furosemide and home potassium binder. 3. Cellulitis of the right foot improved. Repeat cultures are negative so far. Will discharge today and f/u at cancer center next week. . 4. DM. Continue home detemir. 5. CAD. No diagnosis of CHF but fairly significant peripheral edema, probably due to combination of CKD and venous insufficiency. We will continue home furosemide. D/c IVF. Give additional IV furosemide today due to anasarca. Discharge Summary Hospital Course Hospital Course Patient is a 79 yo male with DM, CAD, CKD, and CLL who was admitted on 06/29/19 with hyperuricemia secondary to tumor lysis syndrome. WBC lexis from 83 to 134 within two weeks, probably from right heel cellulitis and recent steroid taper for a diffuse rash. It could also be disease progression. Uric acid was 13.0 at time of admission. Patient continues to feel well overall but his arms are starting to swell with fluid and his rash, particularly on his arms, is becoming more pruritic. Chronic swelling of his legs does not appear to be worse. Wound on his right foot is still slightly tender but does not bother him much. This morning, was called by nursing/lab about blood culture sensitivities coming back positive for MRSA. 1. Tumor lysis syndrome. Appears to be mostly resolved. Continue allopurinol. D/c IVF. 2. Hyperkalemia. Patient has chronic hyperkalemia (related to CKD and chronic metabolic acidosis?). K is back up to 5.9. Continue PO furosemide and home potassium binder. Give additional IV furosemide today. 3. Cellulitis of the right foot improved. Repeat cultures are negative so far. Will discharge today and f[facility]. . 4. DM. Continue home detemir. 5. CAD. No diagnosis of CHF but fairly significant peripheral edema, probably due to combination of CKD and venous insufficiency. We will continue home furosemide. D/c IVF. Give additional IV furosemide today due to anasarca. Labs Laboratory Tests 06/29/19 22:04: Glucometer 160H 06/30/19 06:27: White Blood Count 95.5*H, Red Blood Count 3.14L, Hemoglobin 8.4L, Hematocrit 28L , Mean Corpuscular Hemoglobin Concent 30L, Red Cell Distribution Width 17.3H, Platelet Count 87L, Neutrophils (%) (Auto) 4L, Lymphocytes (%) (Auto) 92H, Lymphocytes # (Auto) 88.0H, Monocytes # (Auto) 2.6H, Eosinophils # (Auto) 1.2H, Basophils # (Auto) 0.2H, Potassium Level 5.5H, Chloride Level 113H, Carbon Dioxide Level 13L, Blood Urea Nitrogen 58H, Creatinine 1.76H, Glucose Level 112H , Calcium Level 7.5L, Total Protein 4.7L, Albumin 2.7L 06/30/19 08:52: Glucometer 201H 06/30/19 20:03: Glucometer 132H 07/01/19 05:43: White Blood Count 101.3*H, Red Blood Count 3.12L, Hemoglobin 8.3L, Hematocrit 28L, Mean Corpuscular Hemoglobin Concent 30L, Red Cell Distribution Width 16.9H, Platelet Count 85L, Neutrophils (%) (Auto) 3L, Lymphocytes (%) (Auto) 93H, Lymphocytes # (Auto) 94.1H, Monocytes # (Auto) 2.3H, Eosinophils # (Auto) 1.2H, Basophils # (Auto) 0.2H, Potassium Level 5.9H, Chloride Level 113H, Carbon Dioxide Level 15L, Blood Urea Nitrogen 60H, Creatinine 1.67H, Calcium Level 7.3L , Corrected Calcium 8.3L, Magnesium Level 1.3L, Total Protein 4.6L, Albumin 2.8L 07/01/19 09:04: Glucometer 120H 07/01/19 20:48: Glucometer 129H 07/02/19 05:45: White Blood Count 134.4*H, Red Blood Count 3.31L, Hemoglobin 9.2L, Hematocrit 29L, Red Cell Distribution Width 17.3H, Platelet Count 111L, Neutrophils (%) (Auto) 3L, Lymphocytes (%) (Auto) 92H, Lymphocytes # (Auto) 123.8H, Monocytes # (Auto) 3.9H, Eosinophils # (Auto) 1.8H, Basophils # (Auto) 0.4H, Potassium Level 6.1H, Chloride Level 110H, Carbon Dioxide Level 14L, Blood Urea Nitrogen 60H, Creatinine 1.86H, Calcium Level 7.4L, Corrected Calcium 8.2L, Magnesium Level 1.5L, Total Protein 5.1L, Albumin 3.0L, Sodium Level 133L 07/02/19 09:06: Glucometer 148H Procedures None. Discharge Physical Examination Allergies: Coded Allergies: aspartame (Unverified Allergy, Severe, 10/23/10) codeine (Unverified Adverse Reaction, Intermediate, HIGH ANXIETY, NAUSEA, 10/11/18) Vitals & I&Os Vital Signs Date Time Temp Pulse Resp B/P (MAP) Pulse Ox O2 Delivery O2 Flow Rate FiO2 07/02/19 12:42 67 07/02/19 12:19 36.0 97 07/02/19 12:00 20 126/75 (92) Room Air 06/29/19 15:30 21 Discharge Home Medications Reviewed and agree with Discharge Medication list on patient's Discharge Instruction sheet Instructions to Patient/Family Please see electronic discharge instructions given to patient. Clinical Quality Measures DVT/VTE Risk/Contraindication: Risk Factor Score Per Nursin RFS Level Per Nursing on Admit: 4+=Very High KOJO TIAN MD Jul 02, 2019 15:12
--- NOTE | 2019-07-03 04:48 | OPERATIVE REPORT ---
DATE OF SERVICE: 07/02/2019 PREOPERATIVE DIAGNOSIS: Erythematous skin rash. POSTOPERATIVE DIAGNOSIS: Erythematous skin rash. PROCEDURE: A 5 mm punch biopsy, left forearm. SURGEON: Tavo Duran DO ANESTHESIA: A 1% lidocaine. ESTIMATED BLOOD LOSS: Minimal. COMPLICATIONS: None. INDICATIONS: The patient is a 79-year-old male with erythematous skin rash has been requested that skin punch biopsy be performed. He understands risks and benefits of procedure and wished to proceed with procedure. Consent was signed in the chart. DESCRIPTION OF PROCEDURE: The patient prepped and draped in sterile fashion. Timeout was performed. Local anesthetic was infiltrated on the left forearm with an erythematous rash was present. A 5 mm punch biopsy was used to go through the skin and into the subcutaneous tissue. The subcutaneous tissue was then amputated with scissors and specimen was obtained. The skin was then closed using 4-0 Prolene in simple interrupted fashion. The area was washed and dried and sterile bandage was applied. The patient tolerated procedure well without any complications. Job ID: [id number] DocumentID: [id number] Dictated Date: 07/02/2019 20:22:43 Hand Plate Stacker Date: 07/03/2019 04:47:24 Dictated By: TAVO DURAN DO
[2019-07-03] MEDS ORDERED: TROUGH ORDER-PHARMACY XX NR (10:00)
[2019-07-03 18:59] LABS: WHITE BLOOD COUNT 134.4 10^3/uL (4.3-11.0)
== END 2019-07-02 15:45 | disposition home or self-care (01) | DRG 683 ==
LOC: EDUNIT# 08:26 → ER 08:27 → 4TH 12:50
PROVIDERS: ADMIT Internal Medicine Hematology & Oncology; ATTEND Internal Medicine Hematology & Oncology
PROC: 0JBH0ZX Excision of Left Lower Arm Subcutaneous Tissue and Fascia, Open Approach, Diagnostic (ICD-10-PCS; principal; 2019-07-02)
DX: E88.3 Tumor lysis syndrome (principal); L03.115 Cellulitis of right lower limb; C91.10 Chronic lymphocytic leukemia of B-cell type not having achieved remission; E11.22 Type 2 diabetes mellitus with diabetic chronic kidney disease; N18.3 Chronic kidney disease, stage 3 (moderate); I12.9 Hypertensive chronic kidney disease with stage 1 through stage 4 chronic kidney disease, or unspecified chronic kidney disease; K59.00 Constipation, unspecified; M19.90 Unspecified osteoarthritis, unspecified site; H26.9 Unspecified cataract; H40.9 Unspecified glaucoma; H91.90 Unspecified hearing loss, unspecified ear; E87.5 Hyperkalemia; I25.10 Atherosclerotic heart disease of native coronary artery without angina pectoris; M10.9 Gout, unspecified; R21 Rash and other nonspecific skin eruption; Z85.828 Personal history of other malignant neoplasm of skin; Z79.4 Long term (current) use of insulin; Z90.5 Acquired absence of kidney; Z95.1 Presence of aortocoronary bypass graft; Z85.528 Personal history of other malignant neoplasm of kidney; Z87.01 Personal history of pneumonia (recurrent); Z89.9 Acquired absence of limb, unspecified
CPT/HCPCS: 36415; 73610; 80053; 82962; 83605; 83615; 83735; 84100; 84550; 85007; 85025; 85027; 85652; 86141; 87040; 87077; 87186; 94760; 96361; 96374; 96375

== ENCOUNTER 2019-07-05 11:52 | Inpatient (IN) | payer MEDICARE, BC ==
[~2019-07-05] VITALS: Ht 175 cm; Wt 90.7 kg
[~2019-07-05 11:52] MED LIST changes: +BISA-65 PO; +CHOL5000 PO; +METO200T48 PO; +OXYC1TAB87 PO; +PATI8.4P PO; +SENN25TA PO
[2019-07-05] MEDS ORDERED: ENOXAPARIN 40 MG/0.4 ML (LOVENOX) SYR SC SCH (12:00)
[2019-07-05] MEDS ORDERED: ONDANSETRON 4 MG (ZOFRAN) ORAL DISSOLVE TAB PO PRN (12:00)
[2019-07-05] MEDS ORDERED: MELATONIN 3 MG TABLET PO PRN (12:00)
[2019-07-05] MEDS ORDERED: POLYETHYLENE GLYCOL 17 GM (MIRALAX) PACK PO PRN (12:00)
[2019-07-05] MEDS ORDERED: ACETAMINOPHEN 325 MG TABLET PO PRN (12:00)
[2019-07-05] MEDS ORDERED: ONDANSETRON 4 MG/2 ML (SDV) Z0FRAN IV PRN (12:00)
[2019-07-05] MEDS ORDERED: RT-ALBUTEROL SULF 2.5 MG/3 ML PRE-MIX VIAL INH ONE (12:00)
[2019-07-05 12:13] VITALS: BP 142/59
[2019-07-05] MEDS ORDERED: RT-ALBUTEROL SULF 2.5 MG/3 ML PRE-MIX VIAL ONE (12:19)
[2019-07-05] MEDS ORDERED: CALCIUM GLUCONATE 10% INJ 4.65 MEQ in NS (IVPB) 50 ML IV NR (12:30)
[2019-07-05] MEDS ORDERED: inSUlin ASPART (NovoLOG) 1 UNIT/0.01 ML (CHARGE PER UNIT) SC NR (12:30)
[2019-07-05] MEDS ORDERED: DEXTROSE 50% 50 ML (IMS) SYR IV NR (12:30)
[2019-07-05] MEDS ORDERED: FUROSEMIDE 40 MG/4 ML INJ (LASIX) IVP NR (12:30)
[2019-07-05 12:53] LABS: CALCIUM 7.9 MG/DL (8.5-10.1); CREATININE SERUM 2.17 MG/DL (0.60-1.30); MAGNESIUM 1.6 MG/DL (1.6-2.4); PHOSPHORUS 4.6 MG/DL (2.3-4.7); POTASSIUM 5.8 MMOL/L (3.6-5.0)
[2019-07-05 13:00] VITALS: BP 142/59
[2019-07-05 14:25] VITALS: BP 142/59
[2019-07-05] MEDS ORDERED: RT-ALBUTEROL SULF 2.5 MG/3 ML PRE-MIX VIAL INH PRN (15:00)
[2019-07-05 16:00] VITALS: BP 125/52
[2019-07-05] MEDS: inSUlin ASPART (NovoLOG) 1 UNIT/0.01 ML (CHARGE PER UNIT) SC SCH ×2 (17:10→20:35)
--- NOTE | 2019-07-05 17:51 | History & Physical-Hospitalist ---
History of Present Illness HPI/Chief Complaint Yonatan Fan is a 79-year-old male with past medical history of CLL who presented as a direct admission from the oncology clinic with hyperkalemia. He was asymptomatic on the time of arrival. He denies any chest pain or palpitations. He denies any fevers or chills. He denies any shortness of breath or cough. He denies any abdominal pain, nausea, vomiting, or diarrhea. He denies any dysuria. He has a rash which is been present for the past month. He says that a biopsy has been performed but the results have not come back yet. He is not currently undergoing chemotherapy for his CLL. He says that they are in the process of discussing starting treatment. Source: patient, family Exam Limitations: no limitations Date Seen 07/05/19 Time Seen by a Provider: 13:00 Attending Physician Glory Houston MD PCP Agustina Carbajal MD Referring Physician Date of Admission Jul 05, 2019 at 11:52 Home Medications & Allergies Home Medications Reviewed patient Home Medication Reconciliation performed by pharmacy medication reconciliations collision technician and/or nursing. Patients Allergies have been reviewed. Allergies Allergies Coded Allergies aspartame (Unverified Allergy, Severe, 10/23/10) codeine (Unverified Adverse Reaction, Intermediate, HIGH ANXIETY, NAUSEA, 10/11/18) Past Itvmhno-Linxhr-Vfzhev Hx Past Med/Social Hx: Reviewed Nursing Past Med/Soc Hx Patient Social History Alcohol Use: Denies Use Recreational Drug Use: No Smoking Status: Never a Smoker 2nd Hand Smoke Exposure: No Physical Abuse Screen: No Sexual Abuse: No Recent Foreign Travel: No Contact w/other who traveled: No Recent Hopitalizations: No Recent Infectious Disease Expo: No Seasonal Allergies Seasonal Allergies: Yes Past Medical History Surgeries: CABG, Nephrectomy Cardiac: Coronary Artery Disease, Hypertension Reproductive: No Genitourinary: Renal Failure Musculoskeletal: Amputee, Arthritis Endocrine: Diabetes, Insulin dep HEENT: Cataract, Glaucoma Hearing Impairment: Hard of Hearing Cancer: Leukemia, Skin, Kidney Did You Recieve Any Treatments: Yes What Type of Treatment Did You: Surgical Intervention History of Blood Disorders: No (low platelets) Family History No Pertinent Family Hx Review of Systems Constitutional: no symptoms reported, see HPI EENTM: no symptoms reported Respiratory: no symptoms reported Cardiovascular: no symptoms reported Gastrointestinal: no symptoms reported Genitourinary: no symptoms reported Musculoskeletal: no symptoms reported Skin: rash Psychiatric/Neurological: No Symptoms Reported Physical Exam Physical Exam Vital Signs Vital Signs - First Documented 07/05/19 07/05/19 12:13 14:25 Temp 36.3 Pulse 67 Resp 18 B/P (MAP) 142/59 (86) Pulse Ox 94 O2 Delivery Room Air FiO2 21 Capillary Refill : Height, Weight, BMI Height: 5'9.00" Weight: 200lbs. 4.0oz. [id number]; 31.24 BMI Method:Stated General Appearance: No Apparent Distress, WD/WN HEENT: PERRL/EOMI, Pharynx Normal Neck: Normal Inspection, Supple Respiratory: Lungs Clear, Normal Breath Sounds, No Respiratory Distress Cardiovascular: Regular Rate, Rhythm, No Edema, No Murmur Gastrointestinal: Normal Bowel Sounds, Non Tender, Soft Extremity: Normal Capillary Refill, Normal Inspection, Non Tender, No Pedal Edema Neurologic/Psychiatric: Alert, Oriented x3, No Motor/Sensory Deficits, Normal Mood/Affect Skin: Warm/Dry, Rash Results Results/Procedures Labs Laboratory Tests 07/05/19 12:26 Patient resulted labs reviewed. Assessment/Plan Admission Diagnosis Hyperkalemia Admission Status: Inpatient Order (span 2 midnights) Reason for Inpatient Admission: Severe hyperkalemia requiring inpatient treatment Assessment and Plan Hyperkalemia Potassium 6.8 on admission Chronic issue, takes Patiromer as outpatient Recently admitted with tumor lysis syndrome Given Lasix 80 mg on arrival EKG without concerning changes Given albuterol treatment Repeat potassium 5.8 Continue to monitor closely Acute kidney injury superimposed on chronic kidney disease Creatinine 2.18 on arrival, baseline approximately 1.8 Continue Lasix Type II diabetes mellitus Levemir 12 units twice daily Sliding scale insulin CLL WBC 157 Not currently on treatment Consult oncology, appreciate assistance DVT prophylaxis: Heparin Critical Care Critically Ill Patient Diagnosis/Problems Diagnosis/Problems (1) Hyperkalemia Status: Acute (2) CLL (chronic lymphocytic leukemia) Status: Chronic Clinical Quality Measures DVT/VTE Risk/Contraindication: Risk Factor Score Per Nursin RFS Level Per Nursing on Admit: 4+=Very High GLORY HOUSTON MD Jul 05, 2019 17:51
[2019-07-05] MEDS ORDERED: SOD POLYSTERENE 15 GM/60 ML (KAYEXALATE) UNIT DOSE PO NR (18:30)
[2019-07-05] MEDS: DOCUSATE SODIUM 100 MG (COLACE) CAP PO SCH (18:54)
[2019-07-05] MEDS: SENNOSIDES 8.6 MG (SENOKOT) TAB PO SCH (18:54)
--- NOTE | 2019-07-05 19:13 | Consultation ---
History of Present Illness History of Present Illness Patient Consulted On(tess/time) 07/05/19 19:03 Date Seen by Provider: Jul 05, 2019 Time Seen by Provider: 19:04 History of Present Illness Mr. Fan is a 79 yo male with DM, CAD, CKD, and CLL who was admitted on 06/29/19 with tumor lysis syndrome and discharged on 07/02/19. He was also treated for right foot cellulitis during that admission and had what I believe to be an erroneous positive blood culture. He presented to clinic today for post hospitalization follow up and was found to have severe hyperkalemia with K 6.8. He has unchanged chronic symptoms (such as weakness, fatigue, and cold intolerance) as well as recent developed but not new symptoms (such as diffuse patchy erythematous and pruritic rash that is undergoing workup currently). He denied any new discomforts, fevers, chills, sweats, dizziness, chest pain, shortness of breath, diarrhea, dysuria. Allergies and Home Medications Allergies Coded Allergies: aspartame (Unverified Allergy, Severe, 10/23/10) codeine (Unverified Adverse Reaction, Intermediate, HIGH ANXIETY, NAUSEA, 10/11/18) Home Medications Bisacodyl 5 Mg Tablet.dr, 5 MG PO DAILY, (Reported) Bisacodyl 5 Mg Tablet.dr, 5 MG PO HS PRN for CONSTIPATION-4TH LINE, (Reported) Cetirizine HCl 10 Mg Tablet, 10 MG PO DAILY PRN for ALLERGIES, (Reported) Cholecalciferol (Vitamin D3) 5,000 Unit Capsule, 5,000 UNIT PO DAILY, (Reported) Furosemide 40 Mg Tablet, 40 MG PO DAILY, (Reported) Furosemide 40 Mg Tablet, 40 MG PO 1930 PRN for WEIGHT GAIN, (Reported) TAKES AN ADDITIONAL TABLET IN THE EVENING NEEDED FOR WEIGHT GAIN Insulin Detemir 100 Unit/1 Ml Insuln.pen, 18 UNITS SC BID, (Reported) Latanoprost 2.5 Ml Drops, 1 DROP OU HS, (Reported) Metoprolol Succinate 200 Mg Tab.er.24h, 50 MG PO DAILY, (Reported) TAKES 1/4 (200MG) TABLET Oxycodone HCl/Acetaminophen 1 Each Tablet, 1 TAB PO Q8H PRN for PAIN-MODERATE (5-7), (Reported) Patiromer Calcium Sorbitex 8.4 Gm Powd.pack, 1 PACKET PO 1200, (Reported) Sennosides 25 Mg Tablet, 25 MG PO DAILY PRN for CONSTIPATION-5TH LINE, (Reported) Simvastatin 20 Mg Tablet, 20 MG PO HS, (Reported) Patient Home Medication List Home Medication List Reviewed: Yes Past Zjnucuo-Hjadfk-Ekppgr Hx Past Med/Social Hx: Reviewed Nursing Past Med/Soc Hx Patient Social History Alcohol Use: Denies Use Recreational Drug Use: No Smoking Status: Never a Smoker 2nd Hand Smoke Exposure: No Recent Foreign Travel: No Contact w/Someone Who Travel: No Recent Infectious Disease Expo: No Recent Hopitalizations: No Seasonal Allergies Seasonal Allergies: Yes Past Medical History Surgeries: Yes (L kidney removed, several skin cancers removed, ) CABG, Nephrectomy Respiratory: No (mild case of pneumonia 08/11/18 ) Cardiac: Yes (CABG) Coronary Artery Disease, Hypertension Neurological: No Reproductive Disorders: No Genitourinary: Yes (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) Renal Failure Gastrointestinal: Yes (constipation at times) Musculoskeletal: Yes (R elbow bursitis, walks with cane) Amputee, Arthritis Endocrine: Yes Diabetes, Insulin dep HEENT: Yes (cataracts removed, "bleeders behind eyes at times") Cataract, Glaucoma Hearing Impairment: Hard of Hearing Cancer: Yes Leukemia, Skin, Kidney Did You Recieve Any Treatments: Yes What Type of Treatment Did You: Surgical Intervention Psychosocial: No Integumentary: No Blood Disorders: No (low platelets) Family Medical History No Pertinent Family Hx Review of Systems-General Constitutional: no symptoms reported EENTM: no symptoms reported Respiratory: no symptoms reported Cardiovascular: no symptoms reported Gastrointestinal: no symptoms reported Genitourinary: no symptoms reported Musculoskeletal: no symptoms reported Skin: rash Psychiatric/Neurological: No Symptoms Reported Physical Exam-General Problems Physical Exam Vital Signs Vital Signs - First Documented 07/05/19 07/05/19 12:13 14:25 Temp 36.3 Pulse 67 Resp 18 B/P (MAP) 142/59 (86) Pulse Ox 94 O2 Delivery Room Air FiO2 21 Capillary Refill : General Appearance: WD/WN, no apparent distress Eyes: Bilateral Eye Normal Inspection, Bilateral Eye EOMI HEENT: normal ENT inspection Neck: normal inspection Respiratory: chest non-tender, lungs clear, normal breath sounds, no respiratory distress, no accessory muscle use Cardiovascular: regular rate, rhythm, no murmur Extremities: pedal edema Neurologic/Psychiatric: no motor/sensory deficits, alert, normal mood/affect, oriented x 3 Skin: normal color, warm/dry Assessment/Plan Assessment/Plan Admission Diagnosis/Plan Patient is a 79 yo male with DM, CAD, CKD, and CLL who was admitted on 06/29/19 with hyperuricemia secondary to tumor lysis syndrome and discharged on 07/02/19. He was readmitted today after being found to have a potassium of 6.8 in oncology clinic. After admission, his potassium is better at 5.8. Patient has chronic hyperkalemia (possibly related to CKD and chronic metabolic acidosis) but recently has been having trouble controlling it as an outpatient. Primary team is managing acute hyperkalemia aggressively with multifarious approach. Patient has persistent hyperleukocytosis at this point related to his progressive CLL. I am unclear how much of his rapid cell turnover is responsible for his hyperkalemia, as other signs of tumor lysis (uric acid and phosphorous) have not changed appreciably. That being said, I am convinced that at least some significant portion of his electrolyte imbalance is related to his tumor burden. He has been leery about IV systemic therapy for his cancer in the past and has declined it consistently as an outpatient. However, I believe he will continue to have issues with tumor lysis as long as his leukocyte count is so high. Therefore I proposed starting hydroxyurea to control his white count, even if not to control the underlying disease. Patient has agreed to this plan. We will start at a low dose of 500mg today and possibly tomorrow to avoid rapid worsening of tumor lysis, but we have an end goal of 2g BID eventually. He will eventually have to discuss starting more aggressive therapy with his primary oncologist, Dr. Keys. Thank you for taking care of Mr. Fan and allowing me to participate in his care. We will continue to follow. Clinical Quality Measures DVT/VTE Risk/Contraindication: Risk Factor Score Per Nursin RFS Level Per Nursing on Admit: 4+=Very High PRIYANK CASSIDY MD Jul 05, 2019 19:13
[2019-07-05 20:00] VITALS: BP 117/89
[2019-07-05] MEDS: HYDROXYUREA 500 MG CAP (HYDREA) PO SCH (20:34)
[2019-07-05] MEDS ORDERED: SIMvastatin 20 MG (ZOCOR) TAB PO SCH (21:00)
[2019-07-05 23:51] VITALS: BP 104/49
[2019-07-06 02:41] LABS: BASOPHILS # (AUTO) 0.2 10^3/uL (0.0-0.1); BASOPHILS % (AUTO) 0 % (0-10); EOSINOPHILS # (AUTO) 0.9 10^3/uL (0.0-0.3); EOSINOPHILS % (AUTO) 1 % (0-10); HEMATOCRIT 26 % (40-54); HEMOGLOBIN 7.8 G/DL (13.3-17.7); LYMPHOCYTES # (AUTO) 79.3 X 10^3 (1.0-4.0); LYMPHOCYTES % (AUTO) 91 % (12-44); MEAN CORPUSCULAR HEMOGLOBIN 27 PG (25-34); MEAN CORPUSCULAR HGB CONC 30 G/DL (32-36); MEAN CORPUSCULAR VOLUME 90 FL (80-99); MEAN PLATELET VOLUME 9.4 FL (7.4-10.4); MONOCYTES # (AUTO) 2.2 X 10^3 (0.0-1.0); MONOCYTES % (AUTO) 3 % (0-12); NEUTROPHILS # (AUTO) 4.3 X 10^3 (1.8-7.8); NEUTROPHILS % (AUTO) 5 % (42-75); PLATELET COUNT 104 10^3/uL (130-400); RED CELL DISTRIBUTION WIDTH 17.5 % (10.0-14.5)
[2019-07-06 02:45] LABS: WHITE BLOOD COUNT 86.8 10^3/uL (4.3-11.0)
[2019-07-06 03:04] LABS: CALCIUM 7.4 MG/DL (8.5-10.1); MAGNESIUM 1.5 MG/DL (1.6-2.4); PHOSPHORUS 4.5 MG/DL (2.3-4.7); POTASSIUM 4.9 MMOL/L (3.6-5.0)
[2019-07-06 03:33] VITALS: BP 140/65
[2019-07-06] MEDS: inSUlin ASPART (NovoLOG) 1 UNIT/0.01 ML (CHARGE PER UNIT) SC SCH ×2 (06:14→13:01)
[2019-07-06] MEDS: RT-ALBUTEROL SULF 2.5 MG/3 ML PRE-MIX VIAL INH SCH ×2 (06:34→10:50)
[2019-07-06 08:00] VITALS: BP 139/64
[2019-07-06] MEDS ORDERED: NON-FORMULARY MEDICATION 1 EA EA (Metoprolol Succinate 50 MG) PO SCH (09:00)
[2019-07-06] MEDS ORDERED: meTOproloL SUCCINATE 50 MG (TOPROL XL) TAB PO SCH (09:00)
[2019-07-06] MEDS ORDERED: FUROSEMIDE 40 MG (LASIX) TAB PO SCH (09:00)
[2019-07-06] MEDS: HYDROXYUREA 500 MG CAP (HYDREA) PO SCH (09:07)
[2019-07-06] MEDS: DOCUSATE SODIUM 100 MG (COLACE) CAP PO SCH (09:08)
[2019-07-06] MEDS: SENNOSIDES 8.6 MG (SENOKOT) TAB PO SCH (09:09)
[2019-07-06] MEDS ORDERED: NF-HYD500C PO (11:52)
[2019-07-06 12:00] VITALS: BP 127/53
[2019-07-06] MEDS ORDERED: PATIROMER CALCIUM SORBITEX PO SCH (12:00)
[2019-07-06 13:59] VITALS: BP 127/53
--- NOTE | 2019-07-06 16:54 | Discharge Summary ---
Discharge Summary Hospital Course Problems/Dx: (1) Hyperkalemia Status: Acute (2) CLL (chronic lymphocytic leukemia) Status: Chronic Hospital Course Date of Admission: Jul 05, 2019 at 11:52 Admission Diagnosis : Hyperkalemia Family Physician/Provider: Agustina Carbajal MD Date of Discharge: 07/06/19 Discharge Diagnosis: Hyperkalemia Hospital Course: Yonatan Fan is a 79-year-old male with CLL who presented as a direct admission from the [facility] with hyperkalemia. He was asymptomatic. His hyperkalemia was treated with Lasix and Kayexalate and his potassium levels improved. His WBC count was 157 and oncology started him on hydroxyurea. His WBC count improved to 86 on discharge. He was continued on hydroxyurea 500 mg daily. I spoke with Dr. Gonzalez and they will follow his labs at the [facility]. Labs and Pending Lab Test: Laboratory Tests 07/05/19 20:27: Glucometer 206H 07/06/19 02:35: White Blood Count 86.8*H, Red Blood Count 2.92L, Hemoglobin 7.8L, Hematocrit 26L , Mean Corpuscular Volume 90, Mean Corpuscular Hemoglobin 27, Mean Corpuscular Hemoglobin Concent 30L, Red Cell Distribution Width 17.5H, Platelet Count 104L, Mean Platelet Volume 9.4, Neutrophils (%) (Auto) 5L, Lymphocytes (%) (Auto) 91H, Monocytes (%) (Auto) 3, Eosinophils (%) (Auto) 1, Basophils (%) (Auto) 0, Neutrophils # (Auto) 4.3, Lymphocytes # (Auto) 79.3H, Monocytes # (Auto) 2.2H, Eosinophils # (Auto) 0.9H, Basophils # (Auto) 0.2H, Sodium Level 138, Potassium Level 4.9, Chloride Level 112H, Carbon Dioxide Level 15L, Anion Gap 11, Blood Urea Nitrogen 61H, Creatinine 2.00H, Estimat Glomerular Filtration Rate 32, BUN/Creatinine Ratio 31, Glucose Level 119H, Calcium Level 7.4L, Phosphorus Level 4.5, Magnesium Level 1.5L 07/06/19 11:38: Glucometer 180H Home Meds Active Hydrea (Hydroxyurea) 500 Mg Cap 500 Mg PO DAILY 30 Days Reported Veltassa (Patiromer Calcium Sorbitex) 8.4 Gm Powd.pack 1 Packet PO 1200 Ex-Lax Maximum Strength (Sennosides) 25 Mg Tablet 25 Mg PO DAILY PRN Dulcolax (Bisacodyl) 5 Mg Tablet.dr 5 Mg PO HS PRN Dulcolax (Bisacodyl) 5 Mg Tablet.dr 5 Mg PO DAILY Furosemide 40 Mg Tablet 40 Mg PO 1930 PRN TAKES AN ADDITIONAL TABLET IN THE EVENING NEEDED FOR WEIGHT GAIN Metoprolol Succinate 200 Mg Tab.er.24h 50 Mg PO DAILY TAKES 1/4 (200MG) TABLET Percocet 5-325 mg Tablet (Oxycodone HCl/Acetaminophen) 1 Each Tablet 1 Tab PO Q8H PRN Vitamin D3 (Cholecalciferol (Vitamin D3)) 5,000 Unit Capsule 5,000 Unit PO DAILY Zyrtec (Cetirizine HCl) 10 Mg Tablet 10 Mg PO DAILY PRN Latanoprost 2.5 Ml Drops 1 Drop OU HS Furosemide 40 Mg Tablet 40 Mg PO DAILY Levemir Flextouch (Insulin Detemir) 100 Unit/1 Ml Insuln.pen 18 Units SC BID Simvastatin 20 Mg Tablet 20 Mg PO HS Assessment/Pt Instructions Take medications as prescribed. Follow up in the cancer center for lab monitoring. Return with chest pain, shortness of breath, or if you feel like you're getting worse. Discharge Planning: <30 minutes discharge planning Discharge Instructions Discharge Diet: Other Diet (Low potassium) Activity as Tolerated: Yes Pneumonia Vaccine Order Indica: Yes Discharge Physical Examination Vital Signs Vital Signs Date Time Temp Pulse Resp B/P (MAP) Pulse Ox O2 Delivery O2 Flow Rate FiO2 07/06/19 13:59 36.3 87 19 127/53 96 Room Air 07/05/19 14:25 21 General Appearance: No Apparent Distress, WD/WN HEENT: PERRL/EOMI, Pharynx Normal Respiratory: Lungs Clear, Normal Breath Sounds, No Respiratory Distress Cardiovascular: Regular Rate, Rhythm, No Edema, No Murmur Gastrointestinal: Normal Bowel Sounds, Non Tender, Soft Extremity: Normal Inspection, Non Tender, No Pedal Edema Skin: Warm/Dry, Rash Neurologic/Psychiatric: Alert, Oriented x3, No Motor/Sensory Deficits, Normal Mood/Affect Allergies: Coded Allergies: aspartame (Unverified Allergy, Severe, 10/23/10) codeine (Unverified Adverse Reaction, Intermediate, HIGH ANXIETY, NAUSEA, 4/3/19) Discharge Summary Date of Admission Jul 05, 2019 at 11:52 Date of Discharge Jul 06, 2019 at 13:59 Discharge Date: Jul 06, 2019 Discharge Time: 1400 Admission Diagnosis Hyperkalemia Consults/Procedures Consulations Oncology Discharge Diagnosis Hyperkalemia (1) Hyperkalemia Status: Acute (2) CLL (chronic lymphocytic leukemia) Status: Chronic Clinical Quality Measures DVT/VTE Risk/Contraindication: Risk Factor Score Per Nursin RFS Level Per Nursing on Admit: 4+=Very High GLORY HOUSTON MD Jul 06, 2019 16:54
== END 2019-07-06 13:59 | disposition home or self-care (01) | DRG 641 ==
LOC: ICU 11:52
PROVIDERS: ADMIT Internal Medicine; ATTEND Internal Medicine
DX: E87.5 Hyperkalemia (principal); N17.9 Acute kidney failure, unspecified; C91.10 Chronic lymphocytic leukemia of B-cell type not having achieved remission; I25.10 Atherosclerotic heart disease of native coronary artery without angina pectoris; I12.9 Hypertensive chronic kidney disease with stage 1 through stage 4 chronic kidney disease, or unspecified chronic kidney disease; E11.22 Type 2 diabetes mellitus with diabetic chronic kidney disease; M19.90 Unspecified osteoarthritis, unspecified site; N18.9 Chronic kidney disease, unspecified; E87.2 Acidosis; Z95.1 Presence of aortocoronary bypass graft
CPT/HCPCS: 36415; 76937; 80048; 82962; 83735; 84100; 85025; 94640; 94760

== ENCOUNTER 2019-07-10 09:41 | Outpatient (RCR) | payer MEDICARE, BC ==
[2019-07-05 10:13] LABS: BASOPHILS # (AUTO) 0.6 10^3/uL (0.0-0.1); BASOPHILS % (AUTO) 0 % (0-10); EOSINOPHILS # (AUTO) 1.9 10^3/uL (0.0-0.3); EOSINOPHILS % (AUTO) 1 % (0-10); HEMATOCRIT 33 % (40-54); HEMOGLOBIN 9.4 G/DL (13.3-17.7); LYMPHOCYTES % (AUTO) 93 % (12-44); MEAN CORPUSCULAR HEMOGLOBIN 26 PG (25-34); MEAN CORPUSCULAR HGB CONC 29 G/DL (32-36); MEAN CORPUSCULAR VOLUME 90 FL (80-99); MEAN PLATELET VOLUME 10.4 FL (7.4-10.4); MONOCYTES % (AUTO) 3 % (0-12); NEUTROPHILS # (AUTO) 4.6 X 10^3 (1.8-7.8); NEUTROPHILS % (AUTO) 3 % (42-75); PLATELET COUNT 126 10^3/uL (130-400); RED CELL DISTRIBUTION WIDTH 17.8 % (10.0-14.5)
[2019-07-05 10:15] LABS: WHITE BLOOD COUNT 157.2 10^3/uL (4.3-11.0)
[2019-07-05 10:33] LABS: BILIRUBIN,TOTAL 0.3 MG/DL (0.1-1.0); CALCIUM 7.9 MG/DL (8.5-10.1); CREATININE SERUM 2.18 MG/DL (0.60-1.30); MAGNESIUM 1.6 MG/DL (1.6-2.4); TOTAL PROTEIN 5.2 GM/DL (6.4-8.2); URIC ACID 6.5 MG/DL (2.6-7.2)
[2019-07-05 10:46] LABS: POTASSIUM 6.8 MMOL/L (3.6-5.0)
[~2019-07-10 09:41] MED LIST changes: -CETI10TA20 PO; +CETI10TA21 PO; -METO-370 PO; +METO50TA7 PO; +NF-HYD500C PO; +SIMV20TA26 PO; -SIMV20TA3 PO
[2019-07-10 10:13] LABS: BASOPHILS # (AUTO) 0.5 10^3/uL (0.0-0.1); BASOPHILS % (AUTO) 0 % (0-10); EOSINOPHILS # (AUTO) 1.8 10^3/uL (0.0-0.3); EOSINOPHILS % (AUTO) 1 % (0-10); HEMATOCRIT 33 % (40-54); HEMOGLOBIN 9.7 G/DL (13.3-17.7); LYMPHOCYTES # (AUTO) 143.9 X 10^3 (1.0-4.0); LYMPHOCYTES % (AUTO) 93 % (12-44); MEAN CORPUSCULAR HEMOGLOBIN 27 PG (25-34); MEAN CORPUSCULAR HGB CONC 30 G/DL (32-36); MEAN CORPUSCULAR VOLUME 92 FL (80-99); MONOCYTES # (AUTO) 4.6 X 10^3 (0.0-1.0); MONOCYTES % (AUTO) 3 % (0-12); NEUTROPHILS # (AUTO) 3.5 X 10^3 (1.8-7.8); NEUTROPHILS % (AUTO) 2 % (42-75); PLATELET COUNT 149 10^3/uL (130-400); RED CELL DISTRIBUTION WIDTH 18.4 % (10.0-14.5)
[2019-07-10 10:14] LABS: WHITE BLOOD COUNT 154.3 10^3/uL (4.3-11.0)
[2019-07-10 10:40] LABS: ALBUMIN 3.1 GM/DL (3.2-4.5); BILIRUBIN,TOTAL 0.3 MG/DL (0.1-1.0); CALCIUM 7.7 MG/DL (8.5-10.1); CREATININE SERUM 2.03 MG/DL (0.60-1.30); PHOSPHORUS 4.7 MG/DL (2.3-4.7); TOTAL PROTEIN 4.9 GM/DL (6.4-8.2); URIC ACID 9.1 MG/DL (2.6-7.2)
[2019-07-10 10:49] LABS: POTASSIUM 6.5 MMOL/L (3.6-5.0)
== END 2019-10-03 | disposition home or self-care (01) ==
LOC: ONC 09:41
PROVIDERS: ATTEND Internal Medicine Hematology & Oncology
DX: C91.10 Chronic lymphocytic leukemia of B-cell type not having achieved remission (principal); Z85.528 Personal history of other malignant neoplasm of kidney; E87.5 Hyperkalemia; D80.1 Nonfamilial hypogammaglobulinemia; I12.9 Hypertensive chronic kidney disease with stage 1 through stage 4 chronic kidney disease, or unspecified chronic kidney disease; E11.22 Type 2 diabetes mellitus with diabetic chronic kidney disease; N18.3 Chronic kidney disease, stage 3 (moderate); I25.10 Atherosclerotic heart disease of native coronary artery without angina pectoris; E78.00 Pure hypercholesterolemia, unspecified; M10.9 Gout, unspecified; Z95.1 Presence of aortocoronary bypass graft; Z79.4 Long term (current) use of insulin; Z79.899 Other long term (current) drug therapy
CPT/HCPCS: 80053; 83735; 84100; 84550; 85025; 99213